=== PATIENT | female | born 1930 | race Caucasian/White ===

== ENCOUNTER 2017-10-01 19:14 | Inpatient (IN) | payer OTHER ==
--- NOTE | 2017-10-01 19:25 | PDOC ---
History of Present Illness <TyIndiana Sabrina - Last Filed: 10/01/17 22:55> - General History Source: EMS, Family Exam Limitations: Clinical Condition - History of Present Illness Initial Comments: 10/01/17 22:31 The patient is a 86 year old female brought in via EMS from [facility] and presenting with her son, with a significant past medical history of Dementia, Debucitis ulcer, pneumonia and must eat pureed foods, who presents to the emergency department with respiratory distress onset today. Before arrival to the ED the patient was given two doses of Nitro by EMS for treatment of presumed CHF. Upon presentation the patient is frail appearing and is neurological nonverbal (unknown baseline). Allergies: None reported Past surgical history: None reported Social history: No alcohol, tobacco or drug use reported <Shiraz Herr - Last Filed: 10/01/17 23:53> - General Chief Complaint: Respiratory Distress Stated Complaint: RESPIRATORY DISTRESS Time Seen by Provider: 10/01/17 19:25 Past History <Indiana Crawford - Last Filed: 10/01/17 22:55> <Shiraz Herr - Last Filed: 10/01/17 23:53> - Past Medical History Allergies/Adverse Reactions: Allergies Allergy/AdvReac Type Severity Reaction Status Date / Time No Known Allergies Allergy Verified 10/01/17 20:02 Home Medications: Ambulatory Orders Acetaminophen 325 mg PO DAILY 10/01/17 Aspirin [ASA -] 81 mg PO DAILY 10/01/17 Vitamin B Comp W-C [Nephro-Milly -] 1 tablet PO DAILY 10/01/17 Vitamin B Comp W-C [Nephro-Milly -] 1 tablet PO DAILY 10/01/17 Review of Systems - Review of Systems Able to Perform ROS?: No Comments:: 10/01/17 22:31 Unable to obtain ROS due to patient clinical condition. <Shiraz Herr - Last Filed: 10/01/17 23:53> *Physical Exam - Vital Signs Last Vital Signs Temp Pulse Resp BP Pulse Ox 100.7 F H 125 H 26 H 76/56 100 10/01/17 19:51 10/01/17 19:27 10/01/17 19:27 10/01/17 19:27 10/01/17 19:51 - Physical Exam Comments: 10/01/17 22:31 GENERAL: Awake but altered HEAD: No signs of trauma, normocephalic, atraumatic EYES: PERRLA, EOMI, sclera anicteric, conjunctiva clear ENT: Auricles normal inspection, hearing grossly normal, nares patent, oropharynx clear without exudates. Moist mucosa NECK: Normal ROM, supple, no lymphadenopathy, JVD, or masses LUNGS: (+) tachypneic, Diffused ronchi HEART: (+) Tachycardic and hypotensive. ABDOMEN: Soft, nontender, normoactive bowel sounds. No guarding, no rebound. No masses EXTREMITIES : Normal inspection, No edema. No clubbing or cyanosis. NEUROLOGICAL: Deferred due to patient mental status. Neurological nonverbal ( unknown baseline) SKIN: Warm, Dry, normal turgor, no rashes or lesions noted. <Shiraz Herr - Last Filed: 10/01/17 23:53> ED Treatment Course - LABORATORY CBC & Chemistry Diagram: 10/01/17 19:30 10/01/17 21:20 <Indiana Crawford - Last Filed: 10/01/17 22:55> - LABORATORY CBC & Chemistry Diagram: 10/01/17 19:30 10/01/17 21:20 - ADDITIONAL ORDERS Additional order review: Laboratory Results 10/01/17 10/01/17 10/01/17 21:20 21:20 20:20 PT with INR INR PTT (Actin FS) Puncture Site Left radial ABG pH 7.25 L ABG pCO2 at Pt Temp 54.0 H ABG pO2 at Pt Temp 257.0 H* ABG HCO3 22.9 ABG O2 Sat (Measured) 99.1 H ABG O2 Content 19.0 ABG Base Excess -4.5 L Jhon Test Positive O2 Delivery Device Bipap Oxygen Flow Rate 100% Vent Mode S/t Vent Rate 14 Pressure Support Vent 12/6 Sodium 145 Potassium 3.8 Chloride 109 H Carbon Dioxide 23 Anion Gap 13 BUN 34 H Creatinine 1.5 H Creat Clearance w eGFR 32.85 Random Glucose 209 H Lactic Acid Calcium 8.3 L Total Bilirubin 0.5 AST 19 ALT 26 Alkaline Phosphatase 70 Creatine Kinase 140 Troponin I 0.09 H B-Natriuretic Peptide Total Protein 6.7 Albumin 2.7 L Blood Type Antibody Screen 10/01/17 10/01/17 10/01/17 19:30 19:30 19:30 PT with INR INR PTT (Actin FS) Puncture Site ABG pH ABG pCO2 at Pt Temp ABG pO2 at Pt Temp ABG HCO3 ABG O2 Sat (Measured) ABG O2 Content ABG Base Excess Jhon Test O2 Delivery Device Oxygen Flow Rate Vent Mode Vent Rate Pressure Support Vent Sodium Potassium Chloride Carbon Dioxide Anion Gap BUN Creatinine Creat Clearance w eGFR Random Glucose Lactic Acid 7.9 H* Calcium Total Bilirubin AST ALT Alkaline Phosphatase Creatine Kinase Troponin I B-Natriuretic Peptide Cancelled Total Protein Albumin Blood Type O POSITIVE Antibody Screen Negative 10/01/17 10/01/17 10/01/17 19:30 19:30 19:30 PT with INR 11.90 H INR 1.05 PTT (Actin FS) 28.6 Puncture Site ABG pH ABG pCO2 at Pt Temp ABG pO2 at Pt Temp ABG HCO3 ABG O2 Sat (Measured) ABG O2 Content ABG Base Excess Jhon Test O2 Delivery Device Oxygen Flow Rate Vent Mode Vent Rate Pressure Support Vent Sodium Cancelled Potassium Cancelled Chloride Cancelled Carbon Dioxide Cancelled Anion Gap Cancelled BUN Cancelled Creatinine Cancelled Creat Clearance w eGFR Cancelled Random Glucose Cancelled Lactic Acid Calcium Cancelled Total Bilirubin Cancelled AST Cancelled ALT Cancelled Alkaline Phosphatase Cancelled Creatine Kinase Cancelled Troponin I Cancelled B-Natriuretic Peptide Total Protein Cancelled Albumin Cancelled Blood Type Antibody Screen 10/01/17 19:30 RBC 4.98 MCV 85.1 MCHC 31.0 L RDW 15.9 H MPV 10.7 Neutrophils % No Result Required. Lymphocytes % No Result Required. - Medications Given in the ED: ED Medications Discontinued Medications Generic Name Dose Route Start Last Admin Trade Name Freq PRN Reason Stop Dose Admin Acetaminophen 650 mg 10/01/17 19:47 10/01/17 20:38 Tylenol Suppository - TX 10/01/17 19:48 650 mg ONCE ONE Administration Piperacillin/Tazobactam/Dextrose 50 mls @ 100 mls/hr 10/01/17 20:06 10/01/17 20:38 Zosyn 3.375gm Ivpb (Premix) IVPB 10/01/17 20:35 100 mls/hr ONCE ONE Administration Protocol Vancomycin HCl 1,000 mg/ 250 mls @ 250 mls/hr 10/01/17 20:07 10/01/17 20:38 Dextrose IVPB 10/01/17 21:06 250 mls/hr ONCE STA Administration Protocol <Shiraz Herr - Last Filed: 10/01/17 23:53> Medical Decision Making - Medical Decision Making 10/01/17 22:56 Patient found to have urosepsis, probable Lower lobe infiltrate who presented tachycardic,hypoxic and hypotensive. (This picture may be due to the 2 doses of nitroglycerin she received en route by paramedics-they felt she was in chf -pt has 34,000 .sl elevated bun/cr antibiotics started, patient admitted to ICU -first trop was 0.09 and will need to be trended PMH dementia, swallowing difficulties,requires pureed foods, pneumonia,sacral decub <Indiana Crawford - Last Filed: 10/01/17 22:55> - Critical Care Time Total Critical Care Time (minutes): 120 Critical Care Statement: The care of this patient involved high complexity decision making to prevent further life threatening deterioration of the patient 's condition and/or to evaluate & treat vital organ system(s) failure or risk of failure. <Shiraz Herr - Last Filed: 10/01/17 23:53> *DC/Admit/Observation/Transfer - Discharge Dispostion Admit: Yes <Indiana Crawford - Last Filed: 10/01/17 22:55> - Attestations Scribe Attestion: 10/01/17 22:33 Documentation prepared by Shiraz Herr, acting as medical front desk coordinator for Indiana Crawford MD <Shiraz Herr - Last Filed: 10/01/17 23:53> Diagnosis at time of Disposition: Pneumonia Qualifiers: Pneumonia type: due to unspecified organism Laterality: left Lung location: lower lobe of lung Qualified Code(s): J18.1 - Lobar pneumonia, unspecified organism Sepsis Qualifiers: Sepsis type: sepsis due to unspecified organism Qualified Code(s): A41.9 - Sepsis, unspecified organism Dementia Qualifiers: Dementia type: Alzheimer's disease Alzheimer's disease onset: unspecified onset Dementia behavioral disturbance: without behavioral disturbance Qualified Code(s): G30.9 - Alzheimer's disease, unspecified UTI (urinary tract infection) Qualifiers: Urinary tract infection type: acute cystitis Hematuria presence: without hematuria Qualified Code(s): N30.00 - Acute cystitis without hematuria - Discharge Dispostion Condition at time of disposition: Critical
[2017-10-01] MEDS ORDERED: ACETAMINOPHEN 650 MG SUPP.RECT PR ONE (19:47)
[2017-10-01] MEDS ORDERED: PIPERACILLIN/TAZOB 3.375 GM 50 ML IVPB ONE (20:06)
[2017-10-01] MEDS ORDERED: VANCOMYCIN 1,000 MG in DEXTROSE 5%-WATER - 250 ML IVPB STA (20:07)
[2017-10-01 20:26] LABS: ARTERIAL BLD GAS O2 SATURATION 99.1 % (90-98.9); ARTERIAL BLOOD GAS BASE EXCESS -4.5 meq/l (-2-2); ARTERIAL BLOOD GAS HCO3 22.9 meq/L (22-26); ARTERIAL BLOOD GAS pH 7.25 (7.35-7.45)
[2017-10-01 20:27] LABS: ALLENS TEST POSITIVE; ART PUNCT SITE LEFT RADIAL; LPM/O2% 100%; PT. ON O2? YES; TYPE OF O2 BIPAP; VENT RATE 14
[2017-10-01] MEDS ORDERED: PIPERACILLIN/TAZOB 3.375 GM 3.375 GM/50 ML BAG IVPB ONE (20:28)
[2017-10-01] MEDS ORDERED: VANCOMYCIN 1 GRAM (PRE-DOCKED) 1,000 MG/250 ML BAG IVPB ONE (20:28)
[2017-10-01] MEDS ORDERED: ACETAMINOPHEN 650 MG SUPP.RECT ONE (20:29)
[2017-10-01 20:36] LABS: MCH 26.4 pg (25.7-33.7); MEAN CELL VOLUME 85.1 fl (80-96); MEAN PLT VOLUME 10.7 fl (7.5-11.1); PLATELET COUNT 519 K/MM3 (134-434); RDW 15.9 % (11.6-15.6)
[2017-10-01 20:40] LABS: WHITE BLOOD COUNT 34.4 K/mm3 (4.0-10.0)
[2017-10-01 20:44] LABS: INR 1.05 (0.82-1.09); PROTHROMBIN TIME (PATIENT) 11.9 SEC (9.98-11.88)
[2017-10-01 20:46] LABS: ACTIVATED PTT 28.6 SECONDS (26.9-34.4)
[2017-10-01 21:03] LABS: PLATELET COMMENTS NO CLUMPING NOTED; PLATELET ESTIMATE INCREASED; REACTIVE LYMPHOCYTES 2 % (0-80); TOTAL CELLS COUNTED 100
[2017-10-01 22:07] LABS: TROPONIN I 0.09 ng/ml (0.00-0.05)
[2017-10-01 22:11] LABS: ALBUMIN 2.7 g/dl (3.4-5.0); ALK PHOS 70 U/L (45-117); ANION GAP 13 (8-16); BILIRUBIN,TOTAL 0.5 mg/dL (0.2-1.0); CALCIUM 8.3 mg/dL (8.5-10.1); CO2 23 mmol/L (21-32); CREATININE 1.5 mg/dL (0.55-1.02); GLUCOSE,RANDOM 209 mg/dL (74-106); SGOT/AST 19 U/L (15-37); SGPT/ALT 26 U/L (12-78); TOT PROT 6.7 g/dl (6.4-8.2)
[2017-10-01 22:34] LABS: URINE APPEARANCE TURBID; URINE BILIRUBIN NEGATIVE (NEGATIVE); URINE BLOOD NEGATIVE (NEGATIVE); URINE COLOR AMBER; URINE GLUCOSE (UA) NEGATIVE (NEGATIVE); URINE KETONE NEGATIVE (NEGATIVE); URINE NITRITE POSITIVE (NEGATIVE); URINE UROBILINOGEN NEGATIVE mg/dL (0.2-1.0)
[2017-10-01 22:41] LABS: URINE PROTEIN 3+ (NEGATIVE)
[2017-10-01 22:42] LABS: URINE BACTERIA MANY /hpf (NONE SEEN); URINE MUCUS MANY; URINE RBC 61; URINE WBC 673; YEAST MANY
[2017-10-01] MEDS ORDERED: LEVOFLOXACIN 500 MG IVPB 500 MG/100 ML BAG IVPB ONE ×2 (22:53→22:58)
--- NOTE | 2017-10-01 22:58 | CONSULT ---
Consult - text type - Consultation Consultation Note: PULM/CCM Pt seen and examined in the ICU CC: dyspnea HPI: Briefly Ms Cardoza is an 86 year old woman with pmhx of dementia, aspiration pna, decubitus ulcer who presented to ED today via EMS for < 24Hr hrs of shortness of breath. She is a resident of [facility] and came in with her son. She in unable to provide hx. She is frail appearing and apparently has been in declining health. EMS felt she was in heart failure and she received 2 SL nitro prior to arrival in ED. In ED pt was febrile to 100, tachy w/HR 125, dyspneic with RR in high 20s, BP 76/56. She had significant wob and acute hypercapneic resp failure (7.25/54), started on Bilevel NIV. Labs otherwise notable for wbc 30K 10% bandemia, lactate 8, Cr 1.4 unk baseline. UA w / pyuria WBC 600+, +LE/N. CXR revealed perihilar congestion and possible RLL infiltrate vs atelectesis. EKG with some lateral ST changes, trop was 0.09, BNP 1200. She was started on Vancomycin, LVQ and Pip/Geovany for UTI and HAP, was given some gentle fluid resuscitation. Repeat abg pending. Pmhx/Surg: -only as described above Social Hx: [facility] resident, awaiting hx from son (not currently with pt) unk tob/etoh/illicts Family hx: non-contrib Vital Signs Temp 100.7 F H 10/01/17 19:51 Pulse 125 H 10/01/17 19:27 Resp 26 H 10/01/17 19:27 BP 76/56 10/01/17 19:27 Pulse Ox 100 10/01/17 19:51 Intake & Output 09/30/17 10/01/17 10/01/17 23:59 11:59 23:59 Weight 63.503 kg Other: Height 5 ft Body Mass Index (BMI) 27.3 Weight Measurement Method Est/Stated by Patient ABG Results ABG pH 7.25 (7.35-7.45) L 10/01/17 20:20 ABG pCO2 at Pt Temp 54.0 mmHg (35-45) H 10/01/17 20:20 ABG pO2 at Pt Temp 257.0 mmHg (68-100) H* 10/01/17 20:20 ABG HCO3 22.9 meq/L (22-26) 10/01/17 20:20 ABG O2 Sat (Measured) 99.1 % (90-98.9) H 10/01/17 20:20 ABG O2 Content 19.0 % vol (15-22) 10/01/17 20:20 ABG Base Excess -4.5 meq/l (-2-2) L 10/01/17 20:20 Troponin, BNP 10/01/17 10/01/17 10/01/17 19:30 19:30 21:20 Troponin I Cancelled 0.09 H B-Natriuretic Peptide Cancelled 10/01/17 21:20 Troponin I B-Natriuretic Peptide 1255.62 H CBCD WBC 34.4 K/mm3 (4.0-10.0) H* 10/01/17 19:30 RBC 4.98 M/mm3 (3.60-5.2) 10/01/17 19:30 Hgb 13.2 GM/dL (10.7-15.3) 10/01/17 19:30 Hct 42.4 % (32.4-45.2) 10/01/17 19:30 MCV 85.1 fl (80-96) 10/01/17 19:30 MCHC 31.0 g/dl (32.0-36.0) L 10/01/17 19:30 RDW 15.9 % (11.6-15.6) H 10/01/17 19:30 Plt Count 519 K/MM3 (134-434) H 10/01/17 19:30 MPV 10.7 fl (7.5-11.1) 10/01/17 19:30 CMP Sodium 145 mmol/L (136-145) 10/01/17 21:20 Potassium 3.8 mmol/L (3.5-5.1) 10/01/17 21:20 Chloride 109 mmol/L (98-107) H 10/01/17 21:20 Carbon Dioxide 23 mmol/L (21-32) 10/01/17 21:20 Anion Gap 13 (8-16) 10/01/17 21:20 BUN 34 mg/dL (7-18) H 10/01/17 21:20 Creatinine 1.5 mg/dL (0.55-1.02) H 10/01/17 21:20 Creat Clearance w eGFR 32.85 (>60) 10/01/17 21:20 Calcium 8.3 mg/dL (8.5-10.1) L 10/01/17 21:20 Total Bilirubin 0.5 mg/dL (0.2-1.0) 10/01/17 21:20 AST 19 U/L (15-37) 10/01/17 21:20 ALT 26 U/L (12-78) 10/01/17 21:20 Alkaline Phosphatase 70 U/L (45-117) 10/01/17 21:20 Total Protein 6.7 g/dl (6.4-8.2) 10/01/17 21:20 Albumin 2.7 g/dl (3.4-5.0) L 10/01/17 21:20 Urine Test Results Urine Color Angie 10/01/17 22:00 Urine Appearance Turbid 10/01/17 22:00 Urine pH 7.0 (5.0-8.0) 10/01/17 22:00 Ur Specific [place] 1.025 (1.001-1.035) 10/01/17 22:00 Urine Protein 3+ (NEGATIVE) H 10/01/17 22:00 Urine Glucose (UA) Negative (NEGATIVE) 10/01/17 22:00 Urine Ketones Negative (NEGATIVE) 10/01/17 22:00 Urine Blood Negative (NEGATIVE) 10/01/17 22:00 Urine Nitrite Positive (NEGATIVE) 10/01/17 22:00 Urine Bilirubin Negative (NEGATIVE) 10/01/17 22:00 Ur Epithelial Cells Few /hpf (FEW) 10/01/17 22:00 Urine Bacteria Many /hpf (NONE SEEN) 10/01/17 22:00 Urine Mucus Many 10/01/17 22:00 Ambulatory Orders Acetaminophen 325 mg PO DAILY 10/01/17 Aspirin [ASA -] 81 mg PO DAILY 10/01/17 Vitamin B Comp W-C [Nephro-Milly -] 1 tablet PO DAILY 10/01/17 Vitamin B Comp W-C [Nephro-Milly -] 1 tablet PO DAILY 10/01/17 Active Medications Chlorhexidine Gluconate (Hibiclens For Decolonization -) 1 applic TP HS KEVIN Heparin Sodium (Porcine) (Heparin -) 5,000 unit SQ TID [facility] Sodium Chloride (Normal Saline -) 1,000 mls @ 60 mls/hr IV ASDIR KEVIN Mupirocin (Bactroban Ointment (For Decolonization) -) 1 applic NS BID KEVIN Stop: 10/07/17 09:59 ROS: unable due to dementia PE: Frail eld woman, on NIV, tachypneic but not in distress HEENT: PERRL, no jvp PULM: clear anterior, no wheezes ABD: soft, NT, + BS EXT: no edema Back: R Scapula pressure ulcer stage IV, 4 x 4.5, some tunneling dressed CXR: reviewed. No large infiltrate EKG: SR, no significant ST changes (poor tracing, to be repeated) A/ 86 y/o woman with advanced dementia and declining health p/w UTI, possible aspiration pna and hypercapneic resp failure requiring NIVPPV P/ -broad spectrum abx: P/T and Vanco to cover HAP/UTI -cont NIV, high threshold to intubate if in line with GOC given tendency to aspirate (NIV/MV not ideal) -f/u repeat abg and lactate pending -gentle volume resuscitation (elevated BNP could be falsely high in setting of LEA) -serial trop and trend Cr -speech and swallow eval once improved mental and clinical status---need to discuss value and questionable utility of feeding tube with family -SQH, no indication for GI prophy -WOC consult (has been following at [place]) -per report family wishes for "everything to be done", cont GOC discussions given advanced dementia aggressive measures ideally only on a limited trial basis. Demario Buck [facility] [id number] Critical Care Total Critical Care Time (in minutes): 35 Critical Care Statement: The care of this patient involved high complexity decision making to prevent further life threatening deterioration of the patient 's condition and/or to evaluate & treat vital organ system(s) failure or risk of failure.
--- NOTE | 2017-10-01 23:09 | HP ---
CHIEF COMPLAINT: SOB PCP: Dr. Stone HISTORY OF PRESENT ILLNESS: This is a 86 y/o woman with a past medical history of Dementia, Aspirated Pneumonia, Decubitus Ulcer. Who presents to the ED from the [facility] with SOB. Patient was found to be in respiratory distress by EMS and was given Nitro x2 for presumed CHF. Patient arrived to the ED with vitals T - 100.7 (Rectal), P 125, R 26, BP 76/56, Spo2 92~88%. Patient was placed on BIPAP. Patient's lab values showed a WBC 33.4 with Bandemia, LA 7.9. In the ED , patient was given broad spectrum antibiotics, with blood cultures pending, fluid bolus, Tylenol. The chest xray image ?RLL infiltrate. Admit to ICU for Severe Sepsis secondary to UTI, Pneumonia ER course was notable for: (1) Severe Sepsis- T- 100.7 (Rectal), P 125, R 26, BP 76/56, Spo2 92~88%. WBC 34.4, LA 7.9 (2) Chest Xray- possible RLL infiltrate (3) UA- +Nitrates, WBC 600+ (4) Trop I- 0.09 Recent Travel: None PAST MEDICAL HISTORY: Dementia Aspirated Pneumonia Decubitus Ulcer PAST SURGICAL HISTORY: Unknown Social History: Smoking: Unknown Alcohol: None Drugs: None Resides in a SNF Family History: Non-contributory Allergies No Known Allergies Allergy (Verified 10/01/17 20:02) HOME MEDICATIONS: Home Medications Medication Instructions Recorded Acetaminophen 325 mg PO DAILY 10/01/17 Aspirin [ASA -] 81 mg PO DAILY 10/01/17 Vitamin B Comp W-C [Nephro-Milly -] 1 tablet PO DAILY 10/01/17 Vitamin B Comp W-C [Nephro-Milly -] 1 tablet PO DAILY 10/01/17 REVIEW OF SYSTEMS Unable to obtain- Dementia hx CONSTITUTIONAL: Absent: fever, chills, diaphoresis, generalized weakness, malaise, loss of appetite, weight change HEENT: Absent: rhinorrhea, nasal congestion, throat pain, throat swelling, difficulty swallowing, mouth swelling, ear pain, eye pain, visual changes CARDIOVASCULAR: Absent: chest pain, syncope, palpitations, irregular heart rate, lightheadedness , peripheral edema RESPIRATORY: Absent: cough, shortness of breath, dyspnea with exertion, orthopnea, wheezing, stridor, hemoptysis GASTROINTESTINAL: Absent: abdominal pain, abdominal distension, nausea, vomiting, diarrhea, constipation, melena, hematochezia GENITOURINARY: Absent: dysuria, frequency, urgency, hesitancy, hematuria, flank pain, genital pain MUSCULOSKELETAL: Absent: myalgia, arthralgia, joint swelling, back pain, neck pain SKIN: Absent: rash, itching, pallor HEMATOLOGIC/IMMUNOLOGIC: Absent: easy bleeding, easy bruising, lymphadenopathy, frequent infections ENDOCRINE: Absent: unexplained weight gain, unexplained weight loss, heat intolerance, cold intolerance NEUROLOGIC: Absent: headache, focal weakness or paresthesias, dizziness, unsteady gait, seizure, mental status changes, bladder or bowel incontinence PSYCHIATRIC: Absent: anxiety, depression, suicidal or homicidal ideation, hallucinations. PHYSICAL EXAMINATION Vital Signs - 24 hr 10/01/17 10/01/17 10/01/17 19:25 19:27 19:36 Temperature 100.7 F H Pulse Rate 125 H Respiratory 26 H Rate Blood Pressure 76/56 O2 Sat by Pulse 94 L 88 L Oximetry (%) 10/01/17 10/01/17 19:51 22:45 Temperature 100.7 F H Pulse Rate Respiratory Rate Blood Pressure O2 Sat by Pulse 100 96 Oximetry (%) GENERAL: Awake, alert to baseline, in no acute distress. HEAD: Normal with no signs of trauma. EYES: Pupils equal, round and reactive to light, sclera anicteric, conjunctiva clear. No lid lag. EARS, NOSE, THROAT: Ears normal, nares patent, oropharynx clear without exudates. Dry mucous membranes. NECK: Normal range of motion, supple without lymphadenopathy, JVD, or masses. LUNGS: On Bipap, +coarse crackles scattered diffusely, diminished RLL HEART: Regular rate and rhythm, normal S1 and S2 without murmur, rub or gallop. ABDOMEN: Soft, nontender, not distended, normoactive bowel sounds, no guarding, no rebound, no masses. No hepatomegaly or splenomegaly. MUSCULOSKELETAL: Normal range of motion at all joints. No bony deformities or tenderness. No CVA tenderness. UPPER EXTREMITIES: 2+ pulses, warm, well-perfused. No cyanosis. No clubbing. No peripheral edema. LOWER EXTREMITIES: 2+ pulses, warm, well-perfused. No calf tenderness. No peripheral edema. NEUROLOGICAL: Cranial nerves II-XII intact. Non-verbal. Gait not observed. PSYCHIATRIC: Restless, at baseline SKIN: Warm, dry, normal turgor, no rashes. 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 Laboratory Results - last 24 hr 10/01/17 10/01/17 10/01/17 19:30 19:30 19:30 WBC 34.4 H* RBC 4.98 Hgb 13.2 Hct 42.4 MCV 85.1 MCH 26.4 MCHC 31.0 L RDW 15.9 H Plt Count 519 H MPV 10.7 Total Counted 100 Neutrophils % No Result Required. Neutrophils % (Manual) 75.0 Band Neutrophils % 10.0 Lymphocytes % No Result Required. Lymphocytes % (Manual) 10.0 Monocytes % (Manual) 3 L Platelet Estimate Increased Platelet Comment No clumping noted PT with INR 11.90 H INR 1.05 PTT (Actin FS) 28.6 Puncture Site ABG pH ABG pCO2 at Pt Temp ABG pO2 at Pt Temp ABG HCO3 ABG O2 Sat (Measured) ABG O2 Content ABG Base Excess Jhon Test O2 Delivery Device Oxygen Flow Rate Vent Mode Vent Rate Pressure Support Vent Sodium Cancelled Potassium Cancelled Chloride Cancelled Carbon Dioxide Cancelled Anion Gap Cancelled BUN Cancelled Creatinine Cancelled Creat Clearance w eGFR Cancelled Random Glucose Cancelled Lactic Acid Calcium Cancelled Total Bilirubin Cancelled AST Cancelled ALT Cancelled Alkaline Phosphatase Cancelled Creatine Kinase Troponin I B-Natriuretic Peptide Total Protein Cancelled Albumin Cancelled Urine Color Urine Appearance Urine pH Ur Specific [place] Urine Protein Urine Glucose (UA) Urine Ketones Urine Blood Urine Nitrite Urine Bilirubin Urine Urobilinogen Urine WBC (Auto) Urine RBC (Auto) Ur Epithelial Cells Urine Bacteria Urine Mucus Urine Yeast Blood Type Antibody Screen 10/01/17 10/01/17 10/01/17 19:30 19:30 19:30 WBC RBC Hgb Hct MCV MCH MCHC RDW Plt Count MPV Total Counted Neutrophils % Neutrophils % (Manual) Band Neutrophils % Lymphocytes % Lymphocytes % (Manual) Monocytes % (Manual) Platelet Estimate Platelet Comment PT with INR INR PTT (Actin FS) Puncture Site ABG pH ABG pCO2 at Pt Temp ABG pO2 at Pt Temp ABG HCO3 ABG O2 Sat (Measured) ABG O2 Content ABG Base Excess Jhon Test O2 Delivery Device Oxygen Flow Rate Vent Mode Vent Rate Pressure Support Vent Sodium Potassium Chloride Carbon Dioxide Anion Gap BUN Creatinine Creat Clearance w eGFR Random Glucose Lactic Acid 7.9 H* Calcium Total Bilirubin AST ALT Alkaline Phosphatase Creatine Kinase Cancelled Troponin I Cancelled B-Natriuretic Peptide Total Protein Albumin Urine Color Urine Appearance Urine pH Ur Specific [place] Urine Protein Urine Glucose (UA) Urine Ketones Urine Blood Urine Nitrite Urine Bilirubin Urine Urobilinogen Urine WBC (Auto) Urine RBC (Auto) Ur Epithelial Cells Urine Bacteria Urine Mucus Urine Yeast Blood Type O POSITIVE Antibody Screen Negative 10/01/17 10/01/17 10/01/17 19:30 20:20 21:20 WBC RBC Hgb Hct MCV MCH MCHC RDW Plt Count MPV Total Counted Neutrophils % Neutrophils % (Manual) Band Neutrophils % Lymphocytes % Lymphocytes % (Manual) Monocytes % (Manual) Platelet Estimate Platelet Comment PT with INR INR PTT (Actin FS) Puncture Site Left radial ABG pH 7.25 L ABG pCO2 at Pt Temp 54.0 H ABG pO2 at Pt Temp 257.0 H* ABG HCO3 22.9 ABG O2 Sat (Measured) 99.1 H ABG O2 Content 19.0 ABG Base Excess -4.5 L Jhon Test Positive O2 Delivery Device Bipap Oxygen Flow Rate 100% Vent Mode S/t Vent Rate 14 Pressure Support Vent 12/6 Sodium 145 Potassium 3.8 Chloride 109 H Carbon Dioxide 23 Anion Gap 13 BUN 34 H Creatinine 1.5 H Creat Clearance w eGFR 32.85 Random Glucose 209 H Lactic Acid Calcium 8.3 L Total Bilirubin 0.5 AST 19 ALT 26 Alkaline Phosphatase 70 Creatine Kinase Troponin I B-Natriuretic Peptide Cancelled Total Protein 6.7 Albumin 2.7 L Urine Color Urine Appearance Urine pH Ur Specific [place] Urine Protein Urine Glucose (UA) Urine Ketones Urine Blood Urine Nitrite Urine Bilirubin Urine Urobilinogen Urine WBC (Auto) Urine RBC (Auto) Ur Epithelial Cells Urine Bacteria Urine Mucus Urine Yeast Blood Type Antibody Screen 10/01/17 10/01/17 10/01/17 21:20 21:20 22:00 WBC RBC Hgb Hct MCV MCH MCHC RDW Plt Count MPV Total Counted Neutrophils % Neutrophils % (Manual) Band Neutrophils % Lymphocytes % Lymphocytes % (Manual) Monocytes % (Manual) Platelet Estimate Platelet Comment PT with INR INR PTT (Actin FS) Puncture Site ABG pH ABG pCO2 at Pt Temp ABG pO2 at Pt Temp ABG HCO3 ABG O2 Sat (Measured) ABG O2 Content ABG Base Excess Jhon Test O2 Delivery Device Oxygen Flow Rate Vent Mode Vent Rate Pressure Support Vent Sodium Potassium Chloride Carbon Dioxide Anion Gap BUN Creatinine Creat Clearance w eGFR Random Glucose Lactic Acid Calcium Total Bilirubin AST ALT Alkaline Phosphatase Creatine Kinase 140 Troponin I 0.09 H B-Natriuretic Peptide 1255.62 H Total Protein Albumin Urine Color Angie Urine Appearance Turbid Urine pH 7.0 Ur Specific [place] 1.025 Urine Protein 3+ H Urine Glucose (UA) Negative Urine Ketones Negative Urine Blood Negative Urine Nitrite Positive Urine Bilirubin Negative Urine Urobilinogen Negative Urine WBC (Auto) 673 Urine RBC (Auto) 61 Ur Epithelial Cells Few Urine Bacteria Many Urine Mucus Many Urine Yeast Many Blood Type Antibody Screen ASSESSMENT/PLAN: This is a 86 y/o woman with a PMHx of Dementia, Aspiration Pneumonia, Decubitus. Admitted for Severe Sepsis secondary to UTI, Pneumonia. FEN - NS@60ml/hr - Replete lytes prn - NPO Code Status: Full Code Dispo: Requires Inpatient Care Problem List - Problem (1) Sepsis Assessment/Plan: - Severe Sepsis likely secondary to UTI vs Right Scapula Ulcer - Admit to ICU - qSofa Score 2 - SIRS Criteria Met IV- T- 100.7, P-125, LA 7.9, WBC-34.4 - UA- +Nitrates, 600+ WBC - Blood Cultures-pending - Urine Culture-pending - Chest Xray- image reviewed ?RLL infiltrate, report- perihilar congestion, possible RLL infiltrate vs atelectasis - Fluid bolus given EMS/ED - Will continue gentle IVF- concern for fluid overload - Will maintain MAP > 65 - Consider pressors to maintain BP - Levaquin, Zosyn, Vancomycin given in ED - Will continue Zosyn and Vancomcyin for broad spectrum coverage- pending BC results - Appreciate ID Consult - Tylenol prn - O2- BIPAP - Initial ABG- Acute Hypercapnia- Resp Failure - Repeat ABG- pending - Low threshold for intubation at this time, but will continue to monitor closely - Continue cardiac monitoring - Repeat CBCD, BMP in am - Trend lactic acid - Monitor urine output Code(s): A41.9 - SEPSIS, UNSPECIFIED ORGANISM Qualifiers: Sepsis type: sepsis due to unspecified organism Qualified Code(s): A41.9 - Sepsis, unspecified organism (2) Pneumonia Assessment/Plan: - [id number] Score- 3 - Chest Xray- image ?RLL - Blood Cultures-pending - Urine Legionella-pending - Levaquin, Vancomycin, Zosyn given in ED - Continue Vancomycin/Zosyn - ID and Pulm consulted - On Bipap for hypercapnia, resp failure - Monitor CBC - Monitor vitals Code(s): J18.9 - PNEUMONIA, UNSPECIFIED ORGANISM Qualifiers: Pneumonia type: due to unspecified organism Laterality: left Lung location: lower lobe of lung Qualified Code(s): J18.1 - Lobar pneumonia, unspecified organism (3) UTI (urinary tract infection) Assessment/Plan: - Urine Cultures-pending - Continue Zosyn - Monitor vitals Code(s): N39.0 - URINARY TRACT INFECTION, SITE NOT SPECIFIED Qualifiers: Urinary tract infection type: acute cystitis Hematuria presence: without hematuria Qualified Code(s): N30.00 - Acute cystitis without hematuria (4) Elevated troponin I level Assessment/Plan: - Likely secondary to Sepsis - Continue cardiac monitoring - Serial Enzymes - EKG- lateral ST changes - Appreciate Cardiology Consult - Asa Code(s): R74.8 - ABNORMAL LEVELS OF OTHER SERUM ENZYMES (5) Dementia Assessment/Plan: - Continue to monitor and treat accordingly - Fall Precautions Code(s): F03.90 - UNSPECIFIED DEMENTIA WITHOUT BEHAVIORAL DISTURBANCE Qualifiers: Dementia type: Alzheimer's disease Alzheimer's disease onset: unspecified onset Dementia behavioral disturbance: without behavioral disturbance Qualified Code(s): G30.9 - Alzheimer's disease, unspecified; F02.80 - Dementia in other diseases classified elsewhere without behavioral disturbance; F02.80 - Dementia in other diseases classified elsewhere without behavioral disturbance; F02.80 - Dementia in other diseases classified elsewhere without behavioral disturbance (6) DVT prophylaxis Assessment/Plan: - SCDs - Heparin SQ Code(s): [id number] - Visit type - Emergency Visit Emergency Visit: Yes ED Registration Date: 10/01/17 Care time: The patient presented to the Emergency Department on the above date and was hospitalized for further evaluation of their emergent condition. - New Patient This patient is new to me today: Yes Date on this admission: 10/01/17 - Critical Care Critical Care patient: Yes Total Critical Care Time (in minutes): 40 Critical Care Statement: The care of this patient involved high complexity decision making to prevent further life threatening deterioration of the patient 's condition and/or to evaluate & treat vital organ system(s) failure or risk of failure.
[2017-10-02] MEDS: SODIUM CHLORIDE 1,000 ML IV SCH ×2 (00:30→16:57)
[2017-10-02 02:53] LABS: TROPONIN I 0.13 ng/ml (0.00-0.05)
[2017-10-02] MEDS: HEPARIN NA (PORCINE) 5,000 UNITS/ML 1ML VIAL SQ SCH ×3 (06:13→22:27)
[2017-10-02 07:00] LABS: ALBUMIN 2.6 g/dl (3.4-5.0); ANION GAP 11 (8-16); CALCIUM 8.1 mg/dL (8.5-10.1); CO2 24 mmol/L (21-32); CREATININE 1.4 mg/dL (0.55-1.02); GLUCOSE,RANDOM 117 mg/dL (74-106); PHOSPHOROUS 5.5 mg/dL (2.5-4.9); SGPT/ALT 27 U/L (12-78); TOT PROT 6.8 g/dl (6.4-8.2)
[2017-10-02 07:01] LABS: ALK PHOS 71 U/L (45-117)
[2017-10-02 07:02] LABS: MAGNESIUM 2.2 mg/dL (1.8-2.4); SGOT/AST 39 U/L (15-37)
[2017-10-02] MEDS ORDERED: PIPERACILLIN/TAZOB 3.375 GM 3.375 GM in DEXTROSE 5%-WATER - 50 ML IVPB ONE (07:45)
--- NOTE | 2017-10-02 08:53 | PN ---
Progress Note (short form) - Note Progress Note: ID consult dictated imp/reccd sepsis uti infected necrotic foulsmelling ulcer on upper back doubt pneumonia dementia- she appears alert positive troponins vanco/zosyn f/u cultures legionella urinary antigen repeat labs pending trend lactic acid repeat cxray surgery should see her to debride the ulcer over 35 minutes spend in the care of this critically ill ICU patient will follow with you Problem List - Problems (1) Sepsis Code(s): A41.9 - SEPSIS, UNSPECIFIED ORGANISM Qualifiers: Sepsis type: sepsis due to unspecified organism Qualified Code(s): A41.9 - Sepsis, unspecified organism (2) UTI (urinary tract infection) Code(s): N39.0 - URINARY TRACT INFECTION, SITE NOT SPECIFIED Qualifiers: Urinary tract infection type: acute cystitis Hematuria presence: without hematuria Qualified Code(s): N30.00 - Acute cystitis without hematuria (3) Infected pressure ulcer Code(s): L89.90 - PRESSURE ULCER OF UNSPECIFIED SITE, UNSPECIFIED STAGE; L08.9 - LOCAL INFECTION OF THE SKIN AND SUBCUTANEOUS TISSUE, UNSP (4) Elevated troponin I level Code(s): R74.8 - ABNORMAL LEVELS OF OTHER SERUM ENZYMES (5) Dementia Code(s): F03.90 - UNSPECIFIED DEMENTIA WITHOUT BEHAVIORAL DISTURBANCE Qualifiers: Dementia type: Alzheimer's disease Alzheimer's disease onset: unspecified onset Dementia behavioral disturbance: without behavioral disturbance Qualified Code(s): G30.9 - Alzheimer's disease, unspecified; F02.80 - Dementia in other diseases classified elsewhere without behavioral disturbance; F02.80 - Dementia in other diseases classified elsewhere without behavioral disturbance; F02.80 - Dementia in other diseases classified elsewhere without behavioral disturbance
[2017-10-02] MEDS ORDERED: PNEUMOC 13-VAL CONJ-DIP CRM/PF 0.5 ML DISP.SYRIN IM ONE (09:00)
--- NOTE | 2017-10-02 09:12 | PN ---
Progress Note (short form) - Note Progress Note: Patient seen and examined in MICU. Events since admission noted. Low grade fever Tachypneic. On BiPaP. Discussed with son Junito Cardoza over the phone about her condition. ER course was notable for: (1) Severe Sepsis- T- 100.7 (Rectal), P 125, R 26, BP 76/56, Spo2 92~88%. WBC 34.4, LA 7.9 (2) Chest Xray- possible RLL infiltrate (3) UA- +Nitrates, WBC 600+ (4) Trop I- 0.09 Recent Travel: None PAST MEDICAL HISTORY: Dementia Aspirated Pneumonia Decubitus Ulcer PAST SURGICAL HISTORY: Unknown Social History: Smoking: Unknown Alcohol: None Drugs: None Resides in a SNF Family History: Non-contributory Allergies No Known Allergies Allergy (Verified 10/01/17 20:02) HOME MEDICATIONS: Home Medications Medication Instructions Recorded Acetaminophen 325 mg PO DAILY 10/01/17 Aspirin [ASA -] 81 mg PO DAILY 10/01/17 Vitamin B Comp W-C [Nephro-Milly -] 1 tablet PO DAILY 10/01/17 Vitamin B Comp W-C [Nephro-Milly -] 1 tablet PO DAILY 10/01/17 REVIEW OF SYSTEMS Unable to obtain- Dementia hx CONSTITUTIONAL: Absent: fever, chills, diaphoresis, generalized weakness, malaise, loss of appetite, weight change HEENT: Absent: rhinorrhea, nasal congestion, throat pain, throat swelling, difficulty swallowing, mouth swelling, ear pain, eye pain, visual changes CARDIOVASCULAR: Absent: chest pain, syncope, palpitations, irregular heart rate, lightheadedness , peripheral edema RESPIRATORY: Absent: cough, shortness of breath, dyspnea with exertion, orthopnea, wheezing, stridor, hemoptysis GASTROINTESTINAL: Absent: abdominal pain, abdominal distension, nausea, vomiting, diarrhea, constipation, melena, hematochezia GENITOURINARY: Absent: dysuria, frequency, urgency, hesitancy, hematuria, flank pain, genital pain MUSCULOSKELETAL: Absent: myalgia, arthralgia, joint swelling, back pain, neck pain SKIN: Absent: rash, itching, pallor HEMATOLOGIC/IMMUNOLOGIC: Absent: easy bleeding, easy bruising, lymphadenopathy, frequent infections ENDOCRINE: Absent: unexplained weight gain, unexplained weight loss, heat intolerance, cold intolerance NEUROLOGIC: Absent: headache, focal weakness or paresthesias, dizziness, unsteady gait, seizure, mental status changes, bladder or bowel incontinence PSYCHIATRIC: Absent: anxiety, depression, suicidal or homicidal ideation, hallucinations. PHYSICAL EXAMINATION Vital Signs Period Temp Pulse Resp BP Sys/Vega Pulse Ox Last 24 Hr 98.2 F-99.1 F 85-102 22-41 74-118/29-71 93-99 GENERAL: Awake, alert to baseline, in no acute distress. HEAD: Normal with no signs of trauma. EYES: Pupils equal, round and reactive to light, sclera anicteric, conjunctiva clear. No lid lag. EARS, NOSE, THROAT: Ears normal, nares patent, oropharynx clear without exudates. Dry mucous membranes. NECK: Normal range of motion, supple without lymphadenopathy, JVD, or masses. LUNGS: On Bipap, +coarse crackles scattered diffusely, diminished RLL HEART: Regular rate and rhythm, normal S1 and S2 without murmur, rub or gallop. ABDOMEN: Soft, nontender, not distended, normoactive bowel sounds, no guarding, no rebound, no masses. No hepatomegaly or splenomegaly. MUSCULOSKELETAL: Normal range of motion at all joints. No bony deformities or tenderness. No CVA tenderness. UPPER EXTREMITIES: 2+ pulses, warm, well-perfused. No cyanosis. No clubbing. No peripheral edema. LOWER EXTREMITIES: 2+ pulses, warm, well-perfused. No calf tenderness. No peripheral edema. NEUROLOGICAL: Cranial nerves II-XII intact. Non-verbal. Gait not observed. PSYCHIATRIC: Restless, at baseline SKIN: Warm, dry, normal turgor, no rashes. Stage 4 pressure ulcer 4cm to R- scapula with eschar, serous sanguineous drainage lesions noted, normal capillary refill. CBC, BMP 10/02/17 10:00 10/02/17 06:00 Microbiology 10/01/17 19:50 Blood Culture - Preliminary Blood - Peripheral Venous NO GROWTH OBTAINED AFTER 24 HOURS, INCUBATION TO CONTINUE FOR 4 DAYS. 10/01/17 19:50 Blood Culture - Preliminary Blood - Peripheral Venous NO GROWTH OBTAINED AFTER 24 HOURS, INCUBATION TO CONTINUE FOR 4 DAYS. 10/02/17 00:15 Respiratory Virus (PCR) - Preliminary Nasopharyngeal Swab 10/02/17 08:40 Legionella Antigen - Final Urine For Antigen Detection Streptococcus pneumoniae Antigen (M - Final 10/02/17 00:15 Influenza Types A,B Antigen ([facility]) - Final Nasopharyngeal Swab - Final ASSESSMENT/PLAN: This is a 86 y/o woman with a PMHx of Dementia, Aspiration Pneumonia, Decubitus. Admitted for Severe Sepsis secondary to UTI, Pneumonia. Problem List - Problem (1) Sepsis Assessment/Plan: - Severe Sepsis likely secondary to UTI - UA- +Nitrates, 600+ WBC - Blood Cultures-pending - Urine Culture-pending - Chest Xray- image reviewed ?RLL infiltrate, report- perihilar congestion, possible RLL infiltrate vs atelectasis - ID Consult appreciated. - Continue Zosyn and Vancomcyin for broad spectrum coverage- pending BC results - Tylenol prn - O2- BIPAP - Initial ABG- Acute Hypercapnia- Resp Failure - Continue cardiac monitoring - Repeat CBCD, BMP in am - Trend lactic acid - Monitor urine output Code(s): A41.9 - SEPSIS, UNSPECIFIED ORGANISM Qualifiers: Sepsis type: sepsis due to unspecified organism Qualified Code(s): A41.9 - Sepsis, unspecified organism (2) Pneumonia Assessment/Plan: - Chest Xray- image ?RLL - Blood Cultures-pending - Urine Legionella-pending - Continue Vancomycin/Zosyn - ID and Pulm consulted - On Bipap for hypercapnia, resp failure - Monitor CBC - Monitor vitals Code(s): J18.9 - PNEUMONIA, UNSPECIFIED ORGANISM Qualifiers: Pneumonia type: due to unspecified organism Laterality: left Lung location: lower lobe of lung Qualified Code(s): J18.1 - Lobar pneumonia, unspecified organism (3) UTI (urinary tract infection) Assessment/Plan: - Urine Cultures-pending - Continue Zosyn - Monitor vitals Code(s): N39.0 - URINARY TRACT INFECTION, SITE NOT SPECIFIED Qualifiers: Urinary tract infection type: acute cystitis Hematuria presence: without hematuria Qualified Code(s): N30.00 - Acute cystitis without hematuria (4) Elevated troponin I level Assessment/Plan: - Likely secondary to Sepsis - Continue cardiac monitoring - Serial Enzymes - EKG- lateral ST changes - Cardiology Consulted - Asa Code(s): R74.8 - ABNORMAL LEVELS OF OTHER SERUM ENZYMES (5) Dementia Assessment/Plan: - Continue to monitor and treat accordingly - Fall Precautions Code(s): F03.90 - UNSPECIFIED DEMENTIA WITHOUT BEHAVIORAL DISTURBANCE Qualifiers: Dementia type: Alzheimer's disease Alzheimer's disease onset: unspecified onset Dementia behavioral disturbance: without behavioral disturbance Qualified Code(s): G30.9 - Alzheimer's disease, unspecified; F02.80 - Dementia in other diseases classified elsewhere without behavioral disturbance; F02.80 - Dementia in other diseases classified elsewhere without behavioral disturbance; F02.80 - Dementia in other diseases classified elsewhere without behavioral disturbance (6) DVT prophylaxis Assessment/Plan: - SCDs - Heparin SQ Code(s): [id number] - More than 45 minutes spent taking care of the patient.
[2017-10-02 09:59] LABS: TROPONIN I 0.11 ng/ml (0.00-0.05)
[2017-10-02] MEDS ORDERED: PIPERACIL/TAZOB 3.375 GM 3.375 GM/50 ML PREMIX IVPB SCH (10:00)
[2017-10-02 10:11] LABS: URINE LEUK ESTERASE 3+ (NEGATIVE)
[2017-10-02 10:34] LABS: MCH 26.2 pg (25.7-33.7); MCHC 31.1 g/dl (32.0-36.0); MEAN CELL VOLUME 84.4 fl (80-96); MEAN PLT VOLUME 9.6 fl (7.5-11.1); PLATELET COUNT 367 K/MM3 (134-434); RDW 15.6 % (11.6-15.6); WHITE BLOOD COUNT 21.9 K/mm3 (4.0-10.0)
[2017-10-02] MEDS ORDERED: PT OWN MED DRAWER 7, Y5N ONE ×2 (10:41→20:23)
[2017-10-02] MEDS: MUPIROCIN 2% TOPICAL OINTMENT FOR DECOLONIZATION NS SCH ×2 (10:57→22:27)
[2017-10-02] MEDS: NYSTATIN POWDER 100,000 UNITS/GM - 15 GM TOPICAL POWDER TP SCH ×2 (11:00→11:01)
--- NOTE | 2017-10-02 11:02 | CONS ---
DATE OF CONSULTATION: DATE OF DICTATION: 10/02/2017 REQUESTING PHYSICIAN: The hospitalist service. HISTORY OF PRESENT ILLNESS: This is an 86-year-old woman [facility]. She has a history of Alzheimer's dementia. She was sent to the ER with respiratory distress of acute onset. She had received some nitroglycerin in the emergency room for possible heart failure. She was placed on BiPAP because she was hypoxic. Chest x-ray showed atelectasis at the bases versus bibasilar infiltrate. She was noted to have pyuria, a temperature of 100.7, and a white count of 34.4. She was admitted to the ICU. As well, she had positive troponins. She is currently on BiPAP receiving and has been started on vancomycin and Zosyn. This is first admission to [facility] PAST MEDICAL HISTORY: Notable for pneumonia, dehydration, Alzheimer's disease. She has a history of a pressure ulcer in the past. There is no history of pneumonia in the past. There is no history of any resistant organisms. She was noted as well to have hypercapnic respiratory failure ALLERGIES: She has no known drug allergies. MEDICATIONS: [facility] the [facility] include aspirin, acetaminophen, Nephro-Milly, and Santyl. SOCIAL HISTORY: She resides [facility] the [facility]. There is no documentation of prior substance use history. Apparently, per the chart, the family wishes for everything to be done at this time. REVIEW OF SYSTEMS: Not obtainable. PHYSICAL EXAMINATION: General: She is awake. She is on BiPAP. Her eyes are open. She is responsive. She squeezes your hand, and she has her eyes open, but she is not following commands. Vital signs: Her maximum temperature is 100.7, current temperature is 98.2, pulse 90, blood pressure 96/44, respiratory rate 30, she is saturating 90% with FiO2 of 50% on BiPAP. HEENT: She is normocephalic. Her eyes are anicteric. I cannot examine her mouth because the BiPAP is on. Lungs: Have diminished breath sounds at the bases. Heart: Regular rate and rhythm. Abdomen: Soft. There is no distension. She has good bowel sounds. Canela is in place draining clear urine. Extremities: Without edema. Skin: She has no skin breakdown. She has 2+ dorsalis pedis ulcers. She has a large probably 8 x 10 cm necrotic foul-smelling ulcer on her upper back stage 3. She has a stage 1 sacral ulcer. DIAGNOSTIC DATA: White count was 34.4 from last night, repeat CBC is pending, hemoglobin 13.2, platelets 519. INR is 1. Blood gas revealed a pH of 7.25 with pCO2 of 54 and pO2 of 257. Chemistries are notable for normal liver function tests. BUN of 40, creatinine of 1.4, lactic acid 4.7. Troponin positive at 0.13. Urinalysis was notable for 673 white cells. Cultures are pending. Influenza screen was sent and was negative. SUMMARY: This is an 86-year-old woman admitted with sepsis, elevated lactic acid, hypotension, urinary tract infection, infected necrotic ulcer on her back, possible pneumonia, with dementia and positive troponins. I would continue the vancomycin and Zosyn, follow up her cultures, check the legionella urinary antigen, repeat labs are pending. Would trend her lactic acid and repeat a chest x-ray. Surgery should see her, as well, to debride the infected ulcer. Further recommendations to follow based on her clinical course. Approximately 35-40 minutes was spent in the care of this critically ill ICU patient. Care was discussed with the critical care team. ALFONZO GONZALEZ M.D. [id number]
[2017-10-02] MEDS: PIPERACILLIN/TAZOB 3.375 GM 3.375 GM in DEXTROSE 5%-WATER - 50 ML IVPB SCH (11:07)
--- NOTE | 2017-10-02 11:09 | PN ---
Teaching Attending Note Name of Resident: Bryson James ATTENDING PHYSICIAN STATEMENT I saw and evaluated the patient. I reviewed the resident's note and discussed the case with the resident. I agree with the resident's findings and plan as documented. SUBJECTIVE: Pt seen and examined in the ICU. Remains tachypneic on BiPAP. Pt nonverbal. Febrile to 100.7 OBJECTIVE: Last Vital Signs Temp Pulse Resp BP Pulse Ox 98.2 F 90 30 H 96/44 95 10/02/17 02:00 10/02/17 06:00 10/02/17 06:00 10/02/17 06:00 10/02/17 09:00 Intake & Output 09/29/17 09/30/17 10/01/17 10/02/17 23:59 23:59 23:59 23:59 Intake Total 420 Output Total 100 Balance 320 Weight 140 lb 136 lb 7.458 oz Gen: tachypneic on BiPAP Heart: RRR Lung: scattered rales Abd: soft, nontender Ext: no edema Back: foul smelling ulcer right upper back CBC, BMP 10/02/17 10:00 10/02/17 06:00 ABG Results ABG pH 7.25 (7.35-7.45) L 10/01/17 20:20 ABG pCO2 at Pt Temp 54.0 mmHg (35-45) H 10/01/17 20:20 ABG pO2 at Pt Temp 257.0 mmHg (68-100) H* 10/01/17 20:20 ABG HCO3 22.9 meq/L (22-26) 10/01/17 20:20 ABG O2 Sat (Measured) 99.1 % (90-98.9) H 10/01/17 20:20 ABG O2 Content 19.0 % vol (15-22) 10/01/17 20:20 ABG Base Excess -4.5 meq/l (-2-2) L 10/01/17 20:20 Active Medications Chlorhexidine Gluconate (Hibiclens For Decolonization -) 1 applic TP HS KEVIN Heparin Sodium (Porcine) (Heparin -) 5,000 unit SQ TID KEVIN Last Admin: 10/02/17 06:13 Dose: 5,000 unit Sodium Chloride (Normal Saline -) 1,000 mls @ 60 mls/hr IV ASDIR KEVIN Last Admin: 10/02/17 00:30 Dose: 60 mls/hr Vancomycin HCl 1,000 mg/ (Dextrose) 250 mls @ 166.667 mls/hr IVPB Q24H KEVIN Piperacillin Sod/Tazobactam (Sod 3.375 gm/ Dextrose) 50 mls @ 100 mls/hr IVPB Q8H-IV KEVIN Mupirocin (Bactroban Ointment (For Decolonization) -) 1 applic NS BID [facility] Stop: 10/07/17 09:59 Last Admin: 10/02/17 10:57 Dose: 1 applic Nystatin (Nystop Powder -) 1 applic TP DAILY [facility] Last Admin: 10/02/17 11:01 Dose: Not Given ASSESSMENT AND PLAN: Acute Hypercapneic Respiratory Failure UTI Infected Sacral Decubitus Ulcer Sepsis Lactic Acidosis Acute Kidney Injury Dementia - IV antibiotics to cover health care acquired organisms - f/u cultures - surgery evaluation for ulcer debridement - IVF - trend lactate - monitor urine output, creatinine - continue BiPAP for work of breathing - check ABG - O2 to keep Spo2 >90% - aspiration precautions - NPO for now - DVT prophylaxis - continue ICU monitoring critical care time spent in reviewing chart, evaluating patient and formulating plan 35 min
[2017-10-02] MEDS ORDERED: BENZOIN/ALOE VERA/STORAX/TOLU 58 ML BOTTLE ONE (11:41)
[2017-10-02 12:47] LABS: ARTERIAL BLOOD GAS PO2 91.4 mmHg (68-100); ARTERIAL BLOOD GAS pH 7.37 (7.35-7.45)
[2017-10-02 12:48] LABS: ARTERIAL BLOOD GAS HCO3 23.4 meq/L (22-26)
--- NOTE | 2017-10-02 13:03 | EKG ---
Test Reason : Blood Pressure : / mmHG Vent. Rate : 117 BPM Atrial Rate : 117 BPM P-R Int : 166 ms QRS Dur : 052 ms QT Int : 338 ms P-R-T Axes : 067 014 002 degrees QTc Int : 471 ms SINUS TACHYCARDIA WITH FUSION COMPLEXES LOW VOLTAGE QRS SEPTAL INFARCT , AGE UNDETERMINED ABNORMAL ECG WHEN COMPARED WITH ECG OF 01-OCT-2017 19:40, SIGNIFICANT CHANGES HAVE OCCURRED Confirmed by DEV SOLITARIO, AMAURY ([id number]) on 10/02/2017 1:03:00 PM Referred By: Confirmed By:AMAURY MÉNDEZ MD
[2017-10-02 13:07] LABS: ALLENS TEST POSITIVE
[2017-10-02 13:08] LABS: ART PUNCT SITE LEFT RADIAL; ARTERIAL BLOOD GAS BASE EXCESS -1.4 meq/l (-2-2)
--- NOTE | 2017-10-02 13:08 | EKG ---
Test Reason : Blood Pressure : / mmHG Vent. Rate : 093 BPM Atrial Rate : 093 BPM P-R Int : 136 ms QRS Dur : 074 ms QT Int : 402 ms P-R-T Axes : 026 009 -07 degrees QTc Int : 499 ms NORMAL SINUS RHYTHM LOW VOLTAGE QRS T WAVE ABNORMALITY, CONSIDER ANTEROLATERAL ISCHEMIA PROLONGED QT ABNORMAL ECG WHEN COMPARED WITH ECG OF 01-OCT-2017 20:23, FUSION COMPLEXES ARE NO LONGER PRESENT CRITERIA FOR SEPTAL INFARCT ARE NO LONGER PRESENT ST NO LONGER DEPRESSED IN ANTERIOR LEADS Confirmed by AMAURY MÉNDEZ MD ([id number]) on 10/02/2017 1:07:34 PM Referred By: Donavon REBOLLEDO Confirmed By:AMAURY MÉNDEZ MD
[2017-10-02 13:09] LABS: VENT RATE 14
[2017-10-02 13:10] LABS: ARTERIAL BLD GAS O2 SATURATION 96.9 % (90-98.9); PT. ON O2? 50%
--- NOTE | 2017-10-02 13:12 | CON.CARD ---
Consult Consult Specialty:: Cardiology Reason for Consultation:: dyspnea sepsis - History of Present Illness History of Present Illness: HPI: Briefly Ms Cardoza is an 86 year old woman with pmhx of dementia, aspiration pna, decubitus ulcer who presented to ED today via EMS for < 24Hr hrs of shortness of breath. She is a resident of [facility] and came in with her son. She in unable to provide hx. She is frail appearing and apparently has been in declining health. EMS felt she was in heart failure and she received 2 SL nitro prior to arrival in ED. In ED pt was febrile to 100, tachy w/HR 125, dyspneic with RR in high 20s, BP 76/56. She had significant wob and acute hypercapneic resp failure (7.25/54), started on Bilevel NIV. Labs otherwise notable for wbc 30K 10% bandemia, lactate 8, Cr 1.4 unk baseline. UA w / pyuria WBC 600+, +LE/N. CXR revealed perihilar congestion and possible RLL infiltrate vs atelectesis. EKG with some lateral ST changes, trop was 0.09, BNP 1200. She was started on Vancomycin, LVQ and Pip/Geovany for UTI and HAP, was given some gentle fluid resuscitation. Repeat abg pending. - History Source History Provided By: Medical Record Limitations to Obtaining History: Dementia - Alcohol/Substance Use Hx Alcohol Use: No - Smoking History Smoking history: Unknown if ever smoked Home Medications - Allergies Allergies/Adverse Reactions: Allergies Allergy/AdvReac Type Severity Reaction Status Date / Time No Known Allergies Allergy Verified 10/01/17 20:02 - Home Medications Home Medications: Ambulatory Orders Acetaminophen 325 mg PO DAILY 10/01/17 Aspirin [ASA -] 81 mg PO DAILY 10/01/17 Vitamin B Comp W-C [Nephro-Milly -] 1 tablet PO DAILY 10/01/17 Vitamin B Comp W-C [Nephro-Milly -] 1 tablet PO DAILY 10/01/17 Review of Systems - Review of Systems Constitutional: reports: No Symptoms Eyes: reports: No Symptoms HENT: reports: No Symptoms Neck: reports: No Symptoms Cardiovascular: reports: No Symptoms Respiratory: reports: SOB Gastrointestinal: reports: No Symptoms Genitourinary: reports: No Symptoms Breasts: reports: No Symptoms Reported Musculoskeletal: reports: No Symptoms Integumentary: reports: No Symptoms Neurological: reports: No Symptoms Endocrine: reports: No Symptoms Hematology/Lymphatic: reports: No Symptoms Psychiatric: reports: No Symptoms Vital Signs: Vital Signs Temperature 98.2 F 10/02/17 02:00 Pulse Rate 92 H 10/02/17 10:40 Respiratory Rate 31 H 10/02/17 10:00 Blood Pressure 94/31 10/02/17 10:00 O2 Sat by Pulse Oximetry (%) 99 10/02/17 10:40 Constitutional: Yes: Well Nourished, No Distress, Calm Eyes: Yes: WNL, Conjunctiva Clear, EOM Intact HENT: Yes: WNL, Atraumatic, Normocephalic Neck: Yes: WNL, Supple, Trachea Midline Respiratory: Yes: Diminished, On Venti-Mask, Poor Air Entry Gastrointestinal: Yes: WNL, Normal Bowel Sounds Renal/: Yes: WNL Cardiovascular: Yes: WNL, Regular Rate and Rhythm Musculoskeletal: Yes: WNL Extremities: Yes: WNL Integumentary: Yes: WNL Neurological: Yes: WNL, Alert, Oriented ...Motor Strength: WNL Psychiatric: Yes: WNL, Alert, Oriented - Other Data Labs, Other Data: CBC, BMP 10/02/17 10:00 10/02/17 06:00 INR, PTT INR 1.05 (0.82-1.09) 10/01/17 19:30 Troponin, BNP 10/01/17 10/01/17 10/01/17 19:30 19:30 21:20 Troponin I Cancelled 0.09 H B-Natriuretic Peptide Cancelled 10/01/17 10/02/17 10/02/17 21:20 02:15 09:00 Troponin I 0.13 H 0.11 H B-Natriuretic Peptide 1255.62 H Troponin, BNP 10/01/17 10/01/17 10/01/17 19:30 19:30 21:20 Troponin I Cancelled 0.09 H B-Natriuretic Peptide Cancelled 10/01/17 10/02/17 10/02/17 21:20 02:15 09:00 Troponin I 0.13 H 0.11 H B-Natriuretic Peptide 1255.62 H Imaging - Results Chest X-ray: Image Reviewed (atelectasis no obvious i/e) EKG: Image Reviewed (s tachy, rep abn prolonged qt) Problem List - Problems (1) DVT prophylaxis Code(s): LNV2306 - (2) Dementia Code(s): F03.90 - UNSPECIFIED DEMENTIA WITHOUT BEHAVIORAL DISTURBANCE Qualifiers: Dementia type: Alzheimer's disease Alzheimer's disease onset: unspecified onset Dementia behavioral disturbance: without behavioral disturbance Qualified Code(s): G30.9 - Alzheimer's disease, unspecified; F02.80 - Dementia in other diseases classified elsewhere without behavioral disturbance; F02.80 - Dementia in other diseases classified elsewhere without behavioral disturbance; F02.80 - Dementia in other diseases classified elsewhere without behavioral disturbance (3) Elevated troponin I level Code(s): R74.8 - ABNORMAL LEVELS OF OTHER SERUM ENZYMES (4) Infected pressure ulcer Code(s): L89.90 - PRESSURE ULCER OF UNSPECIFIED SITE, UNSPECIFIED STAGE; L08.9 - LOCAL INFECTION OF THE SKIN AND SUBCUTANEOUS TISSUE, UNSP (5) Pneumonia Code(s): J18.9 - PNEUMONIA, UNSPECIFIED ORGANISM Qualifiers: Pneumonia type: due to unspecified organism Laterality: left Lung location: lower lobe of lung Qualified Code(s): J18.1 - Lobar pneumonia, unspecified organism (6) Sepsis Code(s): A41.9 - SEPSIS, UNSPECIFIED ORGANISM Qualifiers: Sepsis type: sepsis due to unspecified organism Qualified Code(s): A41.9 - Sepsis, unspecified organism (7) UTI (urinary tract infection) Code(s): N39.0 - URINARY TRACT INFECTION, SITE NOT SPECIFIED Qualifiers: Urinary tract infection type: acute cystitis Hematuria presence: without hematuria Qualified Code(s): N30.00 - Acute cystitis without hematuria Assessment/Plan imp; Acute Hypercapneic Respiratory Failure UTI Infected Sacral Decubitus Ulcer Sepsis Lactic Acidosis Acute Kidney Injury Dementia elevated bnp and tni's - most likely due to sepsis Plan abx icu support echo will f/u cc time 70 min
--- NOTE | 2017-10-02 13:18 | EKG ---
Test Reason : Blood Pressure : / mmHG Vent. Rate : 125 BPM Atrial Rate : 129 BPM P-R Int : 136 ms QRS Dur : 058 ms QT Int : 190 ms P-R-T Axes : 114 013 125 degrees QTc Int : 274 ms UNDETERMINED RHYTHM LOW VOLTAGE QRS ST ELEVATION CONSIDER INFEROLATERAL INJURY OR ACUTE INFARCT ACUTE [place] / STEMI Consider right ventricular involvement in acute inferior infarct ABNORMAL ECG NO PREVIOUS ECGS AVAILABLE Confirmed by DEV SOLITARIO, AMAURY ([id number]) on 10/02/2017 1:18:02 PM Referred By: Confirmed By:AMAURY MÉNDEZ MD
[2017-10-02 13:22] LABS: MECH. VENT. Y; TYPE OF O2 BIPAP
[2017-10-02 14:16] LABS: TOTAL CELLS COUNTED 100
[2017-10-02 14:17] LABS: PLATELET ESTIMATE ADEQUATE
--- NOTE | 2017-10-02 14:28 | CONSULT ---
Consult - Alcohol/Substance Use Hx Alcohol Use: No - Smoking History Smoking history: Unknown if ever smoked Home Medications - Allergies Allergies/Adverse Reactions: Allergies Allergy/AdvReac Type Severity Reaction Status Date / Time No Known Allergies Allergy Verified 10/01/17 20:02 - Home Medications Home Medications: Ambulatory Orders Acetaminophen 325 mg PO DAILY 10/01/17 Aspirin [ASA -] 81 mg PO DAILY 10/01/17 Vitamin B Comp W-C [Nephro-Milly -] 1 tablet PO DAILY 10/01/17 Vitamin B Comp W-C [Nephro-Milly -] 1 tablet PO DAILY 10/01/17 Physical Exam Vital Signs: Vital Signs Temperature 98.2 F 10/02/17 02:00 Pulse Rate 95 H 10/02/17 12:00 Respiratory Rate 33 H 10/02/17 12:00 Blood Pressure 84/58 10/02/17 12:00 O2 Sat by Pulse Oximetry (%) 99 10/02/17 10:40 Labs: CBC, BMP 10/02/17 10:00 10/02/17 06:00 Assessment/Plan VAscular Surgery This is a 86 y/o woman with a past medical history of Dementia, Aspirated Pneumonia, Decubitus Ulcer. Who presents to the ED from the [facility] with SOB. Patient was found to be in respiratory distress by EMS and was given Nitro x2 for presumed CHF. Patient arrived to the ED with vitals T - 100.7 (Rectal), P 125, R 26, BP 76/56, Spo2 92~88%. Patient was placed on BIPAP. Patient's lab values showed a WBC 33.4 with Bandemia, LA 7.9. In the ED , patient was given broad spectrum antibiotics, with blood cultures pending, fluid bolus, Tylenol. The chest xray image ?RLL infiltrate. Admit to ICU for Severe Sepsis secondary to UTI, Pneumonia ER course was notable for: (1) Severe Sepsis- T- 100.7 (Rectal), P 125, R 26, BP 76/56, Spo2 92~88%. WBC 34.4, LA 7.9 (2) Chest Xray- possible RLL infiltrate (3) UA- +Nitrates, WBC 600+ (4) Trop I- 0.09 Recent Travel: None PAST MEDICAL HISTORY: Dementia Aspirated Pneumonia Decubitus Ulcer PAST SURGICAL HISTORY: Unknown Social History: Smoking: Unknown Alcohol: None Drugs: None Resides in a SNF PE Head - Nc/at lung - cTa, on O2 Heart - RRR abd - soft,nt,nd ext - warm, pink. upper back wound - odor, minimal slough with clean pink base. Wound probed to look for pus pockets, could not find pus. A/P Upper back stage 4 ulcer with odor. 1. minimal slough with good clean base. 2. Cont santyl daily. 3. offload area. 4. Will monitor if area becomes more infected with pus and needs debridement. Lexx Ma DO
--- NOTE | 2017-10-02 15:32 | CONSULT ---
Consultation: REQUESTING PROVIDER: CONSULT REQUEST: We have been asked to medically evaluate this patient for Sepsis in ICU. HISTORY OF PRESENT ILLNESS: Pt is nonverbal. Hx taken from family and records. REVIEW OF SYSTEMS: CONSTITUTIONAL: Absent: fever, chills, diaphoresis, generalized weakness, malaise, loss of appetite, weight change HEENT: Absent: rhinorrhea, nasal congestion, throat pain, throat swelling, difficulty swallowing, mouth swelling, ear pain, eye pain, visual changes CARDIOVASCULAR: Absent: chest pain, syncope, palpitations, irregular heart rate, lightheadedness , peripheral edema RESPIRATORY: Absent: cough, shortness of breath, dyspnea with exertion, orthopnea, wheezing, stridor, hemoptysis GASTROINTESTINAL: Absent: abdominal pain, abdominal distension, nausea, vomiting, diarrhea, constipation, melena, hematochezia GENITOURINARY: Absent: dysuria, frequency, urgency, hesitancy, hematuria, flank pain, genital pain MUSCULOSKELETAL: Absent: myalgia, arthralgia, joint swelling, back pain, neck pain SKIN: Absent: rash, itching, pallor HEMATOLOGIC/IMMUNOLOGIC: Absent: easy bleeding, easy bruising, lymphadenopathy, frequent infections ENDOCRINE: Absent: unexplained weight gain, unexplained weight loss, heat intolerance, cold intolerance NEUROLOGIC: Absent: headache, focal weakness or paresthesias, dizziness, unsteady gait, seizure, mental status changes, bladder or bowel incontinence PSYCHIATRIC: Absent: anxiety, depression, suicidal or homicidal ideation, hallucinations. PHYSICAL EXAMINATION Vital Signs - 24 hr 10/01/17 10/01/17 10/01/17 19:25 19:27 19:36 Temperature 100.7 F H Pulse Rate 125 H Respiratory 26 H Rate Blood Pressure 76/56 O2 Sat by Pulse 94 L 88 L Oximetry (%) 10/01/17 10/01/17 10/01/17 19:51 22:45 23:43 Temperature 100.7 F H Pulse Rate Respiratory Rate Blood Pressure O2 Sat by Pulse 100 96 96 Oximetry (%) 10/02/17 10/02/17 10/02/17 00:49 00:50 00:56 Temperature 98.9 F Pulse Rate 85 Respiratory 22 Rate Blood Pressure 90/64 O2 Sat by Pulse 94 L 96 Oximetry (%) 10/02/17 10/02/17 10/02/17 01:04 02:00 03:40 Temperature 98.2 F Pulse Rate 87 Respiratory 27 H Rate Blood Pressure 95/50 O2 Sat by Pulse 98 98 Oximetry (%) 10/02/17 10/02/17 10/02/17 04:00 04:43 06:00 Temperature Pulse Rate 90 90 90 Respiratory 27 H 30 H 30 H Rate Blood Pressure 74/66 95/71 96/44 O2 Sat by Pulse Oximetry (%) 10/02/17 10/02/17 10/02/17 06:38 08:00 09:00 Temperature Pulse Rate 93 H Respiratory 33 H Rate Blood Pressure 100/69 O2 Sat by Pulse 96 95 Oximetry (%) 10/02/17 10/02/17 10/02/17 10:00 10:40 12:00 Temperature Pulse Rate 102 H 92 H 95 H Respiratory 31 H 33 H Rate Blood Pressure 94/31 84/58 O2 Sat by Pulse 94 L 99 Oximetry (%) GENERAL: Awake, alert, and fully oriented, in no acute distress. HEAD: Normal with no signs of trauma. EYES: Pupils equal, round and reactive to light, extraocular movements intact, sclera anicteric, conjunctiva clear. No lid lag. EARS, NOSE, THROAT: Ears normal, nares patent, oropharynx clear without exudates. Moist mucous membranes. NECK: Normal range of motion, supple without lymphadenopathy, JVD, or masses. LUNGS: Breath sounds equal, clear to auscultation bilaterally. No wheezes, and no crackles. No accessory muscle use. HEART: Regular rate and rhythm, normal S1 and S2 without murmur, rub or gallop. ABDOMEN: Soft, nontender, not distended, normoactive bowel sounds, no guarding, no rebound, no masses. No hepatomegaly or splenomegaly. MUSCULOSKELETAL: Normal range of motion at all joints. No bony deformities or tenderness. No CVA tenderness. UPPER EXTREMITIES: 2+ pulses, warm, well-perfused. No cyanosis. No clubbing. Cap refill <2 seconds. No peripheral edema. LOWER EXTREMITIES: 2+ pulses, warm, well-perfused. No calf tenderness. No peripheral edema. NEUROLOGICAL: Cranial nerves II-XII intact. Normal speech. Normal gait. PSYCHIATRIC: Cooperative. Good eye contact. Appropriate mood and affect. SKIN: Warm, dry, normal turgor, no rashes or lesions noted. Laboratory Results - last 24 hr 11/10/01/17 10/01/17 19:30 19:30 19:30 WBC 34.4 H* Corrected WBC (auto) RBC 4.98 Hgb 13.2 Hct 42.4 MCV 85.1 MCH 26.4 MCHC 31.0 L RDW 15.9 H Plt Count 519 H MPV 10.7 Total Counted 100 Neutrophils % No Result Required. Neutrophils % (Manual) 75.0 Band Neutrophils % 10.0 Lymphocytes % No Result Required. Lymphocytes % (Manual) 10.0 Monocytes % Monocytes % (Manual) 3 L Eosinophils % Basophils % Platelet Estimate Increased Platelet Comment No clumping noted PT with INR 11.90 H INR 1.05 PTT (Actin FS) 28.6 Puncture Site ABG pH ABG pCO2 at Pt Temp ABG pO2 at Pt Temp ABG HCO3 ABG O2 Sat (Measured) ABG O2 Content ABG Base Excess Jhon Test O2 Delivery Device Oxygen Flow Rate Vent Mode Vent Rate Mechanical Rate PEEP Pressure Support Vent Sodium Cancelled Potassium Cancelled Chloride Cancelled Carbon Dioxide Cancelled Anion Gap Cancelled BUN Cancelled Creatinine Cancelled Creat Clearance w eGFR Cancelled Random Glucose Cancelled Lactic Acid Calcium Cancelled Phosphorus Magnesium Total Bilirubin Cancelled AST Cancelled ALT Cancelled Alkaline Phosphatase Cancelled Creatine Kinase Creatine Kinase Index CK-MB (CK-2) Troponin I B-Natriuretic Peptide Total Protein Cancelled Albumin Cancelled Urine Color Urine Appearance Urine pH Ur Specific Brutus Urine Protein Urine Glucose (UA) Urine Ketones Urine Blood Urine Nitrite Urine Bilirubin Urine Urobilinogen Ur Leukocyte Esterase Urine WBC (Auto) Urine RBC (Auto) Urine RBC Ur Epithelial Cells Urine Bacteria Urine Mucus Urine Yeast Blood Type Antibody Screen 10/01/17 10/01/17 10/01/17 19:30 19:30 19:30 WBC Corrected WBC (auto) RBC Hgb Hct MCV MCH MCHC RDW Plt Count MPV Total Counted Neutrophils % Neutrophils % (Manual) Band Neutrophils % Lymphocytes % Lymphocytes % (Manual) Monocytes % Monocytes % (Manual) Eosinophils % Basophils % Platelet Estimate Platelet Comment PT with INR INR PTT (Actin FS) Puncture Site ABG pH ABG pCO2 at Pt Temp ABG pO2 at Pt Temp ABG HCO3 ABG O2 Sat (Measured) ABG O2 Content ABG Base Excess Jhon Test O2 Delivery Device Oxygen Flow Rate Vent Mode Vent Rate Mechanical Rate PEEP Pressure Support Vent Sodium Potassium Chloride Carbon Dioxide Anion Gap BUN Creatinine Creat Clearance w eGFR Random Glucose Lactic Acid 7.9 H* Calcium Phosphorus Magnesium Total Bilirubin AST ALT Alkaline Phosphatase Creatine Kinase Cancelled Creatine Kinase Index CK-MB (CK-2) Troponin I Cancelled B-Natriuretic Peptide Total Protein Albumin Urine Color Urine Appearance Urine pH Ur Specific Brutus Urine Protein Urine Glucose (UA) Urine Ketones Urine Blood Urine Nitrite Urine Bilirubin Urine Urobilinogen Ur Leukocyte Esterase Urine WBC (Auto) Urine RBC (Auto) Urine RBC Ur Epithelial Cells Urine Bacteria Urine Mucus Urine Yeast Blood Type O POSITIVE Antibody Screen Negative 10/01/17 10/01/17 10/01/17 19:30 20:20 21:20 WBC Corrected WBC (auto) RBC Hgb Hct MCV MCH MCHC RDW Plt Count MPV Total Counted Neutrophils % Neutrophils % (Manual) Band Neutrophils % Lymphocytes % Lymphocytes % (Manual) Monocytes % Monocytes % (Manual) Eosinophils % Basophils % Platelet Estimate Platelet Comment PT with INR INR PTT (Actin FS) Puncture Site Left radial ABG pH 7.25 L ABG pCO2 at Pt Temp 54.0 H ABG pO2 at Pt Temp 257.0 H* ABG HCO3 22.9 ABG O2 Sat (Measured) 99.1 H ABG O2 Content 19.0 ABG Base Excess -4.5 L Jhon Test Positive O2 Delivery Device Bipap Oxygen Flow Rate 100% Vent Mode S/t Vent Rate 14 Mechanical Rate PEEP Pressure Support Vent 12/6 Sodium 145 Potassium 3.8 Chloride 109 H Carbon Dioxide 23 Anion Gap 13 BUN 34 H Creatinine 1.5 H Creat Clearance w eGFR 32.85 Random Glucose 209 H Lactic Acid Calcium 8.3 L Phosphorus Magnesium Total Bilirubin 0.5 AST 19 ALT 26 Alkaline Phosphatase 70 Creatine Kinase Creatine Kinase Index CK-MB (CK-2) Troponin I B-Natriuretic Peptide Cancelled Total Protein 6.7 Albumin 2.7 L Urine Color Urine Appearance Urine pH Ur Specific Brutus Urine Protein Urine Glucose (UA) Urine Ketones Urine Blood Urine Nitrite Urine Bilirubin Urine Urobilinogen Ur Leukocyte Esterase Urine WBC (Auto) Urine RBC (Auto) Urine RBC Ur Epithelial Cells Urine Bacteria Urine Mucus Urine Yeast Blood Type Antibody Screen 10/01/17 10/01/17 10/01/17 21:20 21:20 22:00 WBC Corrected WBC (auto) RBC Hgb Hct MCV MCH MCHC RDW Plt Count MPV Total Counted Neutrophils % Neutrophils % (Manual) Band Neutrophils % Lymphocytes % Lymphocytes % (Manual) Monocytes % Monocytes % (Manual) Eosinophils % Basophils % Platelet Estimate Platelet Comment PT with INR INR PTT (Actin FS) Puncture Site ABG pH ABG pCO2 at Pt Temp ABG pO2 at Pt Temp ABG HCO3 ABG O2 Sat (Measured) ABG O2 Content ABG Base Excess Jhon Test O2 Delivery Device Oxygen Flow Rate Vent Mode Vent Rate Mechanical Rate PEEP Pressure Support Vent Sodium Potassium Chloride Carbon Dioxide Anion Gap BUN Creatinine Creat Clearance w eGFR Random Glucose Lactic Acid Calcium Phosphorus Magnesium Total Bilirubin AST ALT Alkaline Phosphatase Creatine Kinase 140 Creatine Kinase Index CK-MB (CK-2) Troponin I 0.09 H B-Natriuretic Peptide 1255.62 H Total Protein Albumin Urine Color Angie Urine Appearance Turbid Urine pH 7.0 Ur Specific Brutus 1.025 Urine Protein 3+ H Urine Glucose (UA) Negative Urine Ketones Negative Urine Blood Negative Urine Nitrite Positive Urine Bilirubin Negative Urine Urobilinogen Negative Ur Leukocyte Esterase 3+ H Urine WBC (Auto) 673 Urine RBC (Auto) 61 Urine RBC No Result Required. Ur Epithelial Cells Few Urine Bacteria Many Urine Mucus Many Urine Yeast Many Blood Type Antibody Screen 10/01/17 10/02/17 10/02/17 23:20 02:15 06:00 WBC Cancelled Corrected WBC (auto) Cancelled RBC Cancelled Hgb Cancelled Hct Cancelled MCV Cancelled MCH Cancelled MCHC Cancelled RDW Cancelled Plt Count Cancelled MPV Cancelled Total Counted Neutrophils % Cancelled Neutrophils % (Manual) Band Neutrophils % Lymphocytes % Cancelled Lymphocytes % (Manual) Monocytes % Cancelled Monocytes % (Manual) Eosinophils % Cancelled Basophils % Cancelled Platelet Estimate Platelet Comment PT with INR INR PTT (Actin FS) Puncture Site ABG pH ABG pCO2 at Pt Temp ABG pO2 at Pt Temp ABG HCO3 ABG O2 Sat (Measured) ABG O2 Content ABG Base Excess Jhon Test O2 Delivery Device Oxygen Flow Rate Vent Mode Vent Rate Mechanical Rate PEEP Pressure Support Vent Sodium Potassium Chloride Carbon Dioxide Anion Gap BUN Creatinine Creat Clearance w eGFR Random Glucose Lactic Acid 4.7 H* Calcium Phosphorus Magnesium Total Bilirubin AST ALT Alkaline Phosphatase Creatine Kinase 179 Creatine Kinase Index 2.4 CK-MB (CK-2) 4.455 H Troponin I 0.13 H B-Natriuretic Peptide Total Protein Albumin Urine Color Urine Appearance Urine pH Ur Specific Brutus Urine Protein Urine Glucose (UA) Urine Ketones Urine Blood Urine Nitrite Urine Bilirubin Urine Urobilinogen Ur Leukocyte Esterase Urine WBC (Auto) Urine RBC (Auto) Urine RBC Ur Epithelial Cells Urine Bacteria Urine Mucus Urine Yeast Blood Type Antibody Screen 10/02/17 10/02/17 10/02/17 06:00 09:00 09:00 WBC Corrected WBC (auto) RBC Hgb Hct MCV MCH MCHC RDW Plt Count MPV Total Counted Neutrophils % Neutrophils % (Manual) Band Neutrophils % Lymphocytes % Lymphocytes % (Manual) Monocytes % Monocytes % (Manual) Eosinophils % Basophils % Platelet Estimate Platelet Comment PT with INR INR PTT (Actin FS) Puncture Site ABG pH ABG pCO2 at Pt Temp ABG pO2 at Pt Temp ABG HCO3 ABG O2 Sat (Measured) ABG O2 Content ABG Base Excess Jhon Test O2 Delivery Device Oxygen Flow Rate Vent Mode Vent Rate Mechanical Rate PEEP Pressure Support Vent Sodium 142 Potassium 4.9 D Chloride 107 Carbon Dioxide 24 Anion Gap 11 BUN 40 H Creatinine 1.4 H Creat Clearance w eGFR 35.57 Random Glucose 117 H D Lactic Acid 3.9 H* Calcium 8.1 L Phosphorus 5.5 H Magnesium 2.2 Total Bilirubin 1.0 D AST 39 H D ALT 27 Alkaline Phosphatase 71 Creatine Kinase 149 Creatine Kinase Index CK-MB (CK-2) Troponin I 0.11 H B-Natriuretic Peptide Total Protein 6.8 Albumin 2.6 L Urine Color Urine Appearance Urine pH Ur Specific Brutus Urine Protein Urine Glucose (UA) Urine Ketones Urine Blood Urine Nitrite Urine Bilirubin Urine Urobilinogen Ur Leukocyte Esterase Urine WBC (Auto) Urine RBC (Auto) Urine RBC Ur Epithelial Cells Urine Bacteria Urine Mucus Urine Yeast Blood Type Antibody Screen 10/02/17 10/02/17 10/02/17 09:00 10:00 12:36 WBC Cancelled 21.9 H D Corrected WBC (auto) Cancelled RBC Cancelled 5.08 Hgb Cancelled 13.3 Hct Cancelled 42.9 MCV Cancelled 84.4 MCH Cancelled 26.2 MCHC Cancelled 31.1 L RDW Cancelled 15.6 Plt Count Cancelled 367 D MPV Cancelled 9.6 D Total Counted 100 Neutrophils % Cancelled No Result Required. Neutrophils % (Manual) 85.0 H Band Neutrophils % 1.0 Lymphocytes % Cancelled No Result Required. Lymphocytes % (Manual) 9.0 Monocytes % Cancelled Monocytes % (Manual) 5 Eosinophils % Cancelled Basophils % Cancelled Platelet Estimate Adequate Platelet Comment PT with INR INR PTT (Actin FS) Puncture Site Left radial ABG pH 7.37 ABG pCO2 at Pt Temp 41.7 D ABG pO2 at Pt Temp 91.4 D ABG HCO3 23.4 ABG O2 Sat (Measured) 96.9 ABG O2 Content 18.1 ABG Base Excess -1.4 Jhon Test Positive O2 Delivery Device Bipap Oxygen Flow Rate 50% Vent Mode St Vent Rate 14 Mechanical Rate Y PEEP 0.0 Pressure Support Vent 12/6 Sodium Potassium Chloride Carbon Dioxide Anion Gap BUN Creatinine Creat Clearance w eGFR Random Glucose Lactic Acid Calcium Phosphorus Magnesium Total Bilirubin AST ALT Alkaline Phosphatase Creatine Kinase Creatine Kinase Index CK-MB (CK-2) Troponin I B-Natriuretic Peptide Total Protein Albumin Urine Color Urine Appearance Urine pH Ur Specific Brutus Urine Protein Urine Glucose (UA) Urine Ketones Urine Blood Urine Nitrite Urine Bilirubin Urine Urobilinogen Ur Leukocyte Esterase Urine WBC (Auto) Urine RBC (Auto) Urine RBC Ur Epithelial Cells Urine Bacteria Urine Mucus Urine Yeast Blood Type Antibody Screen Active Medications Generic Name Dose Route Start Last Admin Trade Name Freq PRN Reason Stop Dose Admin Chlorhexidine Gluconate 1 applic 10/02/17 22:00 Hibiclens For Decolonization - TP HS KEVIN Heparin Sodium (Porcine) 5,000 unit 10/02/17 06:00 10/02/17 06:13 Heparin - SQ 5,000 unit TID KEVIN Administration Sodium Chloride 1,000 mls @ 60 mls/hr 10/02/17 00:15 10/02/17 00:30 Normal Saline - IV 60 mls/hr ASDIR KEVIN Administration Vancomycin HCl 1,000 mg/ 250 mls @ 166.667 mls/hr 10/02/17 21:00 Dextrose IVPB Q24H KEVIN Piperacillin Sod/Tazobactam 50 mls @ 100 mls/hr 10/02/17 10:00 10/02/17 11:07 Sod 3.375 gm/ Dextrose IVPB 100 mls/hr Q8H-IV KEVIN Administration Mupirocin 1 applic 10/02/17 10:00 10/02/17 10:57 Bactroban Ointment (For Decolonization) - NS 10/07/17 09:59 1 applic BID KEVIN Administration Nystatin 1 applic 10/02/17 09:00 10/02/17 11:01 Nystop Powder - TP Not Given DAILY [facility] ASSESSMENT/PLAN: Pt is an 86F w/ PMH Dementia, Aspirated Pneumonia, stage III Decubitus Ulcer on the back. Pt is admitted to ICU for sepsis. #Sepsis -In ED: WBC 33.4 with Bandemia, LA 7.9, P 125, R 26, BP 76/56, Spo2 92~88%, T- 100.7 -LA trending down. 3.9 now -WBC trending down 21.9 -source could be decub ulcer vs UTI vs possible PNA -[place] Cx pending -NS -Vanc/Zosyn -ID on board #Decubitous ulcer -Stage III -surg consult for debriedment -wound care #Troponinemia -pt produced trop peak of 0.13 -Cardiology on board -likely 2/2 sepsis #LEA -Hose Sprayer 1.5-> 1.4 -baseline unknown -c/w fluid -repeat chem #UTI -pt on Abx -ID on board #Dementia -Pt nonverbal #FEN -NS -Lytes wnl -NPO for now #PPx -Hep SubQ Dispo: We will continue to follow the patient. Thank you for this consultative opportunity. Spoke with Pt's son who is her health proxy today. Pt is full code and should be intubated if necessary. Bryson James MD PGY-1, ICU case discussed with attending Visit type - Emergency Visit Emergency Visit: No - New Patient This patient is new to me today: Yes Date on this admission: 10/02/17 - Critical Care Critical Care patient: Yes Total Critical Care Time (in minutes): 35 Critical Care Statement: The care of this patient involved high complexity decision making to prevent further life threatening deterioration of the patient 's condition and/or to evaluate & treat vital organ system(s) failure or risk of failure.
[2017-10-02] MEDS ORDERED: FUROSEMIDE 40 MG/4 ML INJECTABLE VIAL IVPUSH ONE (16:26)
[2017-10-02] MEDS ORDERED: FUROSEMIDE 40 MG/4 ML INJECTABLE VIAL ONE (16:32)
--- NOTE | 2017-10-02 18:07 | PN ---
Progress Note (short form) - Note Progress Note: -Patient sob; with accessory muscle use; O2 desaturation -stat CXR increased infiltrate -BiPAP setting changed to increased FiO2 to 100%; I?E 01/05; RR14 -lasix 4mg IV x1
[2017-10-02] MEDS ORDERED: DOPAMINE 400 MG/D5W - 400,000 MCG/250 ML INFUS.BAG IVPB SCH ×2 (18:15→19:08)
[2017-10-02] MEDS ORDERED: VANCOMYCIN 1,000 MG in DEXTROSE 5%-WATER - 250 ML IVPB SCH (21:00)
[2017-10-02] MEDS ORDERED: CHLORHEXIDINE GLUCONATE 4% CLEANSER FOR DECOLONIZATION TP SCH (22:00)
[2017-10-02] MEDS: COLLAGENASE CLOSTRIDIUM HIST. 30 GRAMS TUBE TP SCH (22:27)
[2017-10-03] MEDS: SODIUM CHLORIDE 1,000 ML IV SCH (01:00)
[2017-10-03] MEDS ORDERED: PT OWN MED DRAWER 7, Y5N ONE ×3 (02:03→18:03)
[2017-10-03] MEDS: PIPERACILLIN/TAZOB 3.375 GM 3.375 GM in DEXTROSE 5%-WATER - 50 ML IVPB SCH ×4 (02:08→18:29)
[2017-10-03] MEDS: HEPARIN NA (PORCINE) 5,000 UNITS/ML 1ML VIAL SQ SCH ×3 (06:45→22:14)
[2017-10-03 06:48] LABS: BASOPHIL 0.1 % (0-2.0); MCH 26.4 pg (25.7-33.7); MCHC 31.7 g/dl (32.0-36.0); MEAN CELL VOLUME 83.2 fl (80-96); MEAN PLT VOLUME 10.1 fl (7.5-11.1); PLATELET COUNT 333 K/MM3 (134-434); RDW 15.7 % (11.6-15.6); WHITE BLOOD COUNT 24.4 K/mm3 (4.0-10.0)
[2017-10-03 07:22] LABS: ALBUMIN 2.3 g/dl (3.4-5.0); ANION GAP 12 (8-16); CALCIUM 8.3 mg/dL (8.5-10.1); CO2 24 mmol/L (21-32); CREATININE 1.6 mg/dL (0.55-1.02); GLUCOSE,RANDOM 121 mg/dL (74-106); MAGNESIUM 2.1 mg/dL (1.8-2.4); PHOSPHOROUS 3.6 mg/dL (2.5-4.9); SGOT/AST 17 U/L (15-37); SGPT/ALT 25 U/L (12-78)
[2017-10-03 07:24] LABS: ALK PHOS 63 U/L (45-117); BILIRUBIN,TOTAL 0.6 mg/dL (0.2-1.0); TOT PROT 6.3 g/dl (6.4-8.2)
--- NOTE | 2017-10-03 08:23 | PN ---
Progress Note, Physician Chief Complaint: ID Breathing 44 times a minute in obvious distress Empiric antibiotics Vancomycin and Zosyn - Current Medication List Current Medications: Active Medications Chlorhexidine Gluconate (Hibiclens For Decolonization -) 1 applic TP HS [facility] Last Admin: 10/02/17 22:27 Dose: 1 applic Collagenase (Santyl -) 1 applic TP DAILY KEVIN Last Admin: 10/02/17 22:27 Dose: 1 applic Heparin Sodium (Porcine) (Heparin -) 5,000 unit SQ TID [facility] Last Admin: 10/03/17 06:45 Dose: 5,000 unit Sodium Chloride (Normal Saline -) 1,000 mls @ 60 mls/hr IV ASDIR KEVIN Last Admin: 10/03/17 01:00 Dose: 60 mls/hr Vancomycin HCl 1,000 mg/ (Dextrose) 250 mls @ 166.667 mls/hr IVPB Q24H [facility] Last Admin: 10/02/17 20:34 Dose: 166.667 mls/hr Piperacillin Sod/Tazobactam (Sod 3.375 gm/ Dextrose) 50 mls @ 100 mls/hr IVPB Q8H-IV KEVIN Last Admin: 10/03/17 02:08 Dose: 100 mls/hr Dopamine HCl/Dextrose (Dopamine 400 Mg/D5w -) 400,000 mcg in 250 mls @ 11.606 mls/hr IVPB TITR KEVIN; 5 MCG/KG/MIN PRN Reason: Protocol Mupirocin (Bactroban Ointment (For Decolonization) -) 1 applic NS BID [facility] Stop: 10/07/17 09:59 Last Admin: 10/02/17 22:27 Dose: 1 applic Nystatin (Nystop Powder -) 1 applic TP DAILY [facility] Last Admin: 10/02/17 11:01 Dose: Not Given - Objective Vital Signs: Vital Signs Temperature 98.0 F 10/03/17 06:00 Pulse Rate 96 H 10/03/17 06:00 Respiratory Rate 37 H 10/03/17 07:43 Blood Pressure 107/86 10/03/17 06:00 O2 Sat by Pulse Oximetry (%) 99 10/03/17 08:09 Constitutional: Yes: Severe Distress Cardiovascular: Yes: S1, S2 Labs: CBC, BMP 10/03/17 05:22 10/03/17 05:22 INR, PTT INR 1.05 (0.82-1.09) 10/01/17 19:30 Problem List - Problems (1) Infected pressure ulcer Code(s): L89.90 - PRESSURE ULCER OF UNSPECIFIED SITE, UNSPECIFIED STAGE; L08.9 - LOCAL INFECTION OF THE SKIN AND SUBCUTANEOUS TISSUE, UNSP (2) Pneumonia Code(s): J18.9 - PNEUMONIA, UNSPECIFIED ORGANISM Qualifiers: Pneumonia type: due to unspecified organism Laterality: left Lung location: lower lobe of lung Qualified Code(s): J18.1 - Lobar pneumonia, unspecified organism (3) Sepsis Code(s): A41.9 - SEPSIS, UNSPECIFIED ORGANISM Qualifiers: Sepsis type: sepsis due to unspecified organism Qualified Code(s): A41.9 - Sepsis, unspecified organism (4) UTI (urinary tract infection) Code(s): N39.0 - URINARY TRACT INFECTION, SITE NOT SPECIFIED Qualifiers: Urinary tract infection type: acute cystitis Hematuria presence: without hematuria Qualified Code(s): N30.00 - Acute cystitis without hematuria Assessment/Plan Microbiology 10/02/17 08:40 Urine For Antigen Detection Legionella Antigen - Final 10/02/17 08:40 Urine For Antigen Detection Streptococcus pneumoniae Antigen (M - Final 10/02/17 00:15 Nasopharyngeal Swab Influenza Types A,B Antigen ([facility]) - Final 10/02/17 00:15 Nasopharyngeal Swab - Final 10/02/17 00:15 Nasopharyngeal Swab Respiratory Virus (PCR) - Preliminary 10/01/17 19:50 Blood - Peripheral Venous Blood Culture - Preliminary NO GROWTH OBTAINED AFTER 24 HOURS, INCUBATION TO CONTINUE FOR 4 DAYS. 10/01/17 19:50 Blood - Peripheral Venous Blood Culture - Preliminary NO GROWTH OBTAINED AFTER 24 HOURS, INCUBATION TO CONTINUE FOR 4 DAYS. Laboratory Tests 10/01/17 10/02/17 10/02/17 19:30 09:00 09:00 WBC 34.4 H* Hgb Hct Plt Count ABG pH ABG pCO2 at Pt Temp ABG pO2 at Pt Temp Oxygen Flow Rate Creat Clearance w eGFR Lactic Acid 3.9 H* Troponin I 0.11 H 10/02/17 10/02/17 10/03/17 12:36 19:10 05:22 WBC 24.4 H Hgb 12.1 Hct 38.1 Plt Count 333 ABG pH 7.37 ABG pCO2 at Pt Temp 41.7 D ABG pO2 at Pt Temp 91.4 D Oxygen Flow Rate 50% Creat Clearance w eGFR Lactic Acid 2.4 H* Troponin I 10/03/17 10/03/17 05:22 05:22 WBC Hgb Hct Plt Count ABG pH ABG pCO2 at Pt Temp ABG pO2 at Pt Temp Oxygen Flow Rate Creat Clearance w eGFR 30.49 Lactic Acid Pending Troponin I Assessment Sepsis syndrome Pneumonia UTI Infected wound Plan Continue current antibiotics Issue of intubation discussed with family Cultures urine pending Blood negative Toni [facility]
[2017-10-03] MEDS: NYSTATIN POWDER 100,000 UNITS/GM - 15 GM TOPICAL POWDER TP SCH (09:45)
[2017-10-03] MEDS: COLLAGENASE CLOSTRIDIUM HIST. 30 GRAMS TUBE TP SCH (09:45)
[2017-10-03] MEDS: MUPIROCIN 2% TOPICAL OINTMENT FOR DECOLONIZATION NS SCH ×2 (09:46→22:14)
--- NOTE | 2017-10-03 11:45 | PN ---
Teaching Attending Note Name of Resident: Bryson James ATTENDING PHYSICIAN STATEMENT I saw and evaluated the patient. I reviewed the resident's note and discussed the case with the resident. I agree with the resident's findings and plan as documented. SUBJECTIVE: Patient seen and examined in the ICU. Lethargic on NIPPV. 50% FiO2. No pressors. Intake & Output 09/30/17 10/01/17 10/02/17 10/03/17 23:59 23:59 23:59 23:59 Intake Total 1250 470 Output Total 250 300 Balance 1000 170 Weight 140 lb 136 lb 7.458 oz 139 lb Last Vital Signs Temp Pulse Resp BP Pulse Ox 98.0 F 97 H 37 H 96/49 99 10/03/17 06:00 10/03/17 09:09 10/03/17 08:00 10/03/17 08:00 10/03/17 09:09 Active Medications Chlorhexidine Gluconate (Hibiclens For Decolonization -) 1 applic TP HS [facility] Last Admin: 10/02/17 22:27 Dose: 1 applic Collagenase (Santyl -) 1 applic TP DAILY [facility] Last Admin: 10/03/17 09:45 Dose: 1 applic Heparin Sodium (Porcine) (Heparin -) 5,000 unit SQ TID [facility]EVIN Last Admin: 10/03/17 06:45 Dose: 5,000 unit Sodium Chloride (Normal Saline -) 1,000 mls @ 60 mls/hr IV ASDIR [facility] Last Admin: 10/03/17 01:00 Dose: 60 mls/hr Vancomycin HCl 1,000 mg/ (Dextrose) 250 mls @ 166.667 mls/hr IVPB Q24H [facility] Last Admin: 10/02/17 20:34 Dose: 166.667 mls/hr Piperacillin Sod/Tazobactam (Sod 3.375 gm/ Dextrose) 50 mls @ 100 mls/hr IVPB Q8H-IV [facility] Last Admin: 10/03/17 09:39 Dose: 100 mls/hr Mupirocin (Bactroban Ointment (For Decolonization) -) 1 applic NS BID [facility] Stop: 10/07/17 09:59 Last Admin: 10/03/17 09:46 Dose: 1 applic Nystatin (Nystop Powder -) 1 applic TP DAILY [facility] Last Admin: 10/03/17 09:45 Dose: 1 applic GENERAL: Lethargic on NIPPV. HEAD: Normal with no signs of trauma. EYES: Sclera anicteric EARS, NOSE, THROAT: Dry mucous membranes. NECK: Normal range of motion, supple without lymphadenopathy, JVD, or masses. LUNGS: Tachypneic, on NIPPV HEART: Tachyardia. ABDOMEN: Soft, nontender, not distended, normoactive bowel sounds, no guarding, no rebound, no masses. No hepatomegaly or splenomegaly. MUSCULOSKELETAL: Normal range of motion at all joints. No bony deformities or tenderness. No CVA tenderness. UPPER EXTREMITIES: 2+ pulses, warm. No peripheral edema. LOWER EXTREMITIES: 2+ pulses, warm. No calf tenderness. No peripheral edema. NEUROLOGICAL: Lethargic PSYCHIATRIC: Lethargic SKIN: Warm, dry, decubitus. Laboratory Results - last 24 hr 10/02/17 10/02/17 10/02/17 10:00 12:36 15:00 WBC RBC Hgb Hct MCV MCH MCHC RDW Plt Count MPV Total Counted 100 Neutrophils % Neutrophils % (Manual) 85.0 H Band Neutrophils % 1.0 Lymphocytes % Lymphocytes % (Manual) 9.0 Monocytes % Monocytes % (Manual) 5 Eosinophils % Basophils % Platelet Estimate Adequate Puncture Site Left radial ABG pH 7.37 ABG pCO2 at Pt Temp 41.7 D ABG pO2 at Pt Temp 91.4 D ABG HCO3 23.4 ABG O2 Sat (Measured) 96.9 ABG O2 Content 18.1 ABG Base Excess -1.4 Jhon Test Positive O2 Delivery Device Bipap Oxygen Flow Rate 50% Vent Mode St Vent Rate 14 Mechanical Rate Y PEEP 0.0 Pressure Support Vent 12/6 Sodium Potassium Chloride Carbon Dioxide Anion Gap BUN Creatinine Creat Clearance w eGFR Random Glucose Lactic Acid 2.4 H* Calcium Phosphorus Magnesium Total Bilirubin AST ALT Alkaline Phosphatase Total Protein Albumin 10/02/17 10/03/17 10/03/17 19:10 05:22 05:22 WBC 24.4 H RBC 4.58 Hgb 12.1 Hct 38.1 MCV 83.2 MCH 26.4 MCHC 31.7 L RDW 15.7 H Plt Count 333 MPV 10.1 Total Counted Neutrophils % 90.0 H Neutrophils % (Manual) Band Neutrophils % Lymphocytes % 5.4 L Lymphocytes % (Manual) Monocytes % 4.5 Monocytes % (Manual) Eosinophils % 0.0 Basophils % 0.1 Platelet Estimate Puncture Site ABG pH ABG pCO2 at Pt Temp ABG pO2 at Pt Temp ABG HCO3 ABG O2 Sat (Measured) ABG O2 Content ABG Base Excess Jhon Test O2 Delivery Device Oxygen Flow Rate Vent Mode Vent Rate Mechanical Rate PEEP Pressure Support Vent Sodium 145 Potassium 4.0 Chloride 109 H Carbon Dioxide 24 Anion Gap 12 BUN 50 H D Creatinine 1.6 H Creat Clearance w eGFR 30.49 Random Glucose 121 H Lactic Acid 2.4 H* Calcium 8.3 L Phosphorus 3.6 D Magnesium 2.1 Total Bilirubin 0.6 D AST 17 D ALT 25 Alkaline Phosphatase 63 Total Protein 6.3 L Albumin 2.3 L 10/03/17 05:22 WBC RBC Hgb Hct MCV MCH MCHC RDW Plt Count MPV Total Counted Neutrophils % Neutrophils % (Manual) Band Neutrophils % Lymphocytes % Lymphocytes % (Manual) Monocytes % Monocytes % (Manual) Eosinophils % Basophils % Platelet Estimate Puncture Site ABG pH ABG pCO2 at Pt Temp ABG pO2 at Pt Temp ABG HCO3 ABG O2 Sat (Measured) ABG O2 Content ABG Base Excess Jhon Test O2 Delivery Device Oxygen Flow Rate Vent Mode Vent Rate Mechanical Rate PEEP Pressure Support Vent Sodium Potassium Chloride Carbon Dioxide Anion Gap BUN Creatinine Creat Clearance w eGFR Random Glucose Lactic Acid 2.0 Calcium Phosphorus Magnesium Total Bilirubin AST ALT Alkaline Phosphatase Total Protein Albumin IMP: Sepsis Lactic acidosis UTI Suspected PNA (?) Aspiration Stage III Decubitus Ulcer Leukocytosis Advanced Dementia (+) troponin PLAN: Broad spectrum ABX per ID Aspiration precautions Follow cultures IVF Local wound care LEA ECHO Aspiration precautions 50% VM Cardiac Telemetry monitoring Dr Lovett Critical care time spent in reviewing chart, evaluating patient and formulating plan - 36 minutes.
[2017-10-03] MEDS ORDERED: DEXTROSE 5%-0.45% SALINE 1,000 ML IV SCH (12:00)
--- NOTE | 2017-10-03 14:12 | PN ---
Progress Note, Physician History of Present Illness: HPI: Briefly Ms Cardoza is an 86 year old woman with pmhx of dementia, aspiration pna, decubitus ulcer who presented to ED today via EMS for < 24Hr hrs of shortness of breath. She is a resident of [facility] and came in with her son. She in unable to provide hx. She is frail appearing and apparently has been in declining health. EMS felt she was in heart failure and she received 2 SL nitro prior to arrival in ED. In ED pt was febrile to 100, tachy w/HR 125, dyspneic with RR in high 20s, BP 76/56. She had significant wob and acute hypercapneic resp failure (7.25/54), started on Bilevel NIV. Labs otherwise notable for wbc 30K 10% bandemia, lactate 8, Cr 1.4 unk baseline. UA w / pyuria WBC 600+, +LE/N. CXR revealed perihilar congestion and possible RLL infiltrate vs atelectesis. EKG with some lateral ST changes, trop was 0.09, BNP 1200. She was started on Vancomycin, LVQ and Pip/Geovany for UTI and HAP, was given some gentle fluid resuscitation. Repeat abg pending. - Current Medication List Current Medications: Active Medications Chlorhexidine Gluconate (Hibiclens For Decolonization -) 1 applic TP HS [facility] Last Admin: 10/02/17 22:27 Dose: 1 applic Collagenase (Santyl -) 1 applic TP DAILY [facility] Last Admin: 10/03/17 09:45 Dose: 1 applic Heparin Sodium (Porcine) (Heparin -) 5,000 unit SQ TID [facility] Last Admin: 10/03/17 06:45 Dose: 5,000 unit Vancomycin HCl 1,000 mg/ (Dextrose) 250 mls @ 166.667 mls/hr IVPB Q24H [facility] Last Admin: 10/02/17 20:34 Dose: 166.667 mls/hr Piperacillin Sod/Tazobactam (Sod 3.375 gm/ Dextrose) 50 mls @ 100 mls/hr IVPB Q8H-IV [facility] Last Admin: 10/03/17 09:39 Dose: 100 mls/hr Dextrose/Sodium Chloride (D5-1/2ns -) 1,000 mls @ 60 mls/hr IV ASDIR [facility] Last Admin: 10/03/17 12:34 Dose: 60 mls/hr Mupirocin (Bactroban Ointment (For Decolonization) -) 1 applic NS BID [facility] Stop: 10/07/17 09:59 Last Admin: 10/03/17 09:46 Dose: 1 applic Nystatin (Nystop Powder -) 1 applic TP DAILY [facility] Last Admin: 10/03/17 09:45 Dose: 1 applic - Objective Vital Signs: Vital Signs Temperature 98.3 F 10/03/17 10:00 Pulse Rate 91 H 10/03/17 14:00 Respiratory Rate 35 H 10/03/17 14:00 Blood Pressure 100/58 10/03/17 14:00 O2 Sat by Pulse Oximetry (%) 99 10/03/17 09:09 Eyes: Yes: WNL, Conjunctiva Clear, EOM Intact HENT: Yes: WNL, Atraumatic, Normocephalic Neck: Yes: WNL, Supple, Trachea Midline Cardiovascular: Yes: WNL, Regular Rate and Rhythm Respiratory: Yes: WNL, Regular, CTA Bilaterally Gastrointestinal: Yes: WNL, Normal Bowel Sounds Genitourinary: Yes: WNL Musculoskeletal: Yes: WNL Extremities: Yes: WNL Edema: No Integumentary: Yes: WNL Neurological: Yes: WNL, Alert, Oriented ...Motor Strength: WNL Psychiatric: Yes: WNL Labs: CBC, BMP 10/03/17 05:22 10/03/17 05:22 INR, PTT INR 1.05 (0.82-1.09) 10/01/17 19:30 Problem List - Problems (1) DVT prophylaxis Code(s): WDS2642 - (2) Dementia Code(s): F03.90 - UNSPECIFIED DEMENTIA WITHOUT BEHAVIORAL DISTURBANCE Qualifiers: Qualified Code(s): G30.9 - Alzheimer's disease, unspecified; F02.80 - Dementia in other diseases classified elsewhere without behavioral disturbance; F02.80 - Dementia in other diseases classified elsewhere without behavioral disturbance; F02.80 - Dementia in other diseases classified elsewhere without behavioral disturbance (3) Elevated troponin I level Code(s): R74.8 - ABNORMAL LEVELS OF OTHER SERUM ENZYMES (4) Infected pressure ulcer Code(s): L89.90 - PRESSURE ULCER OF UNSPECIFIED SITE, UNSPECIFIED STAGE; L08.9 - LOCAL INFECTION OF THE SKIN AND SUBCUTANEOUS TISSUE, UNSP (5) Pneumonia Code(s): J18.9 - PNEUMONIA, UNSPECIFIED ORGANISM Qualifiers: Qualified Code(s): J18.1 - Lobar pneumonia, unspecified organism (6) Sepsis Code(s): A41.9 - SEPSIS, UNSPECIFIED ORGANISM Qualifiers: Qualified Code(s): A41.9 - Sepsis, unspecified organism (7) UTI (urinary tract infection) Code(s): N39.0 - URINARY TRACT INFECTION, SITE NOT SPECIFIED Qualifiers: Qualified Code(s): N30.00 - Acute cystitis without hematuria Assessment/Plan imp; Acute Hypercapneic Respiratory Failure UTI Infected Sacral Decubitus Ulcer Sepsis Lactic Acidosis Acute Kidney Injury Dementia elevated bnp and tni's - most likely due to sepsis Plan abx icu support echo will f/u cc time 35 min
--- NOTE | 2017-10-03 14:16 | PN ---
Physical Exam: SUBJECTIVE: Patient seen and examined at bedside. No acute events overnight. Pt in bed breathing on bipap. In some respiratory distress. Pt is nonverbal. OBJECTIVE: Vital Signs Period Temp Pulse Resp BP Sys/Vega Pulse Ox Last 24 Hr 97.6 F-99.1 F 88-100 29-41 81-127/49-86 93-99 GENERAL: Awake, alert, and fully oriented, with tachypnea in respiratory distress. HEAD: Normal with no signs of trauma. EYES: sclera anicteric, conjunctiva clear. No lid lag. NECK: Normal range of motion, supple without lymphadenopathy, JVD, or masses. LUNGS: Noisy chest 2/2 NIPPV. tachypnea. Breath sounds equal, No wheezes, and no crackles appreciated. HEART: distant heart sounds. Regular rate and rhythm, normal S1 and S2 without murmur, rub or gallop. ABDOMEN: Soft, nontender, not distended, normoactive bowel sounds, no guarding, no rebound, no masses. No hepatomegaly or splenomegaly. LOWER EXTREMITIES: 2+ pulses, warm, well-perfused. No calf tenderness. No peripheral edema. NEUROLOGICAL: nonverbal PSYCHIATRIC: nonverbal SKIN: Warm, dry, normal turgor, no rashes or lesions noted. Laboratory Results - last 24 hr 10/02/17 10/02/17 10/02/17 10:00 15:00 19:10 WBC RBC Hgb Hct MCV MCH MCHC RDW Plt Count MPV Total Counted 100 Neutrophils % Neutrophils % (Manual) 85.0 H Band Neutrophils % 1.0 Lymphocytes % Lymphocytes % (Manual) 9.0 Monocytes % Monocytes % (Manual) 5 Eosinophils % Basophils % Platelet Estimate Adequate Sodium Potassium Chloride Carbon Dioxide Anion Gap BUN Creatinine Creat Clearance w eGFR Random Glucose Lactic Acid 2.4 H* 2.4 H* Calcium Phosphorus Magnesium Total Bilirubin AST ALT Alkaline Phosphatase Total Protein Albumin 10/03/17 10/03/17 10/03/17 05:22 05:22 05:22 WBC 24.4 H RBC 4.58 Hgb 12.1 Hct 38.1 MCV 83.2 MCH 26.4 MCHC 31.7 L RDW 15.7 H Plt Count 333 MPV 10.1 Total Counted Neutrophils % 90.0 H Neutrophils % (Manual) Band Neutrophils % Lymphocytes % 5.4 L Lymphocytes % (Manual) Monocytes % 4.5 Monocytes % (Manual) Eosinophils % 0.0 Basophils % 0.1 Platelet Estimate Sodium 145 Potassium 4.0 Chloride 109 H Carbon Dioxide 24 Anion Gap 12 BUN 50 H D Creatinine 1.6 H Creat Clearance w eGFR 30.49 Random Glucose 121 H Lactic Acid 2.0 Calcium 8.3 L Phosphorus 3.6 D Magnesium 2.1 Total Bilirubin 0.6 D AST 17 D ALT 25 Alkaline Phosphatase 63 Total Protein 6.3 L Albumin 2.3 L Active Medications Generic Name Dose Route Start Last Admin Trade Name Braulio PRN Reason Stop Dose Admin Chlorhexidine Gluconate 1 applic 10/02/17 22:00 10/02/17 22:27 Hibiclens For Decolonization - TP 1 applic HS KEVIN Administration Collagenase 1 applic 10/02/17 15:45 10/03/17 09:45 Santyl - TP 1 applic DAILY [facility] Administration Heparin Sodium (Porcine) 5,000 unit 10/02/17 06:00 10/03/17 06:45 Heparin - SQ 5,000 unit TID KEVIN Administration Vancomycin HCl 1,000 mg/ 250 mls @ 166.667 mls/hr 10/02/17 21:00 10/02/17 20: 34 Dextrose IVPB 166.667 mls/hr Q24H KEVIN Administration Piperacillin Sod/Tazobactam 50 mls @ 100 mls/hr 10/02/17 10:00 10/03/17 09:39 Sod 3.375 gm/ Dextrose IVPB 100 mls/hr Q8H-IV KEVIN Administration Dextrose/Sodium Chloride 1,000 mls @ 60 mls/hr 10/03/17 12:00 10/03/17 12:34 D5-1/2ns - IV 60 mls/hr ASDIR [facility]EVIN Administration Mupirocin 1 applic 10/02/17 10:00 10/03/17 09:46 Bactroban Ointment (For Decolonization) - NS 10/07/17 09:59 1 applic BID EK[facility]IN Administration Nystatin 1 applic 10/02/17 09:00 10/03/17 09:45 Nystop Powder - TP 1 applic DAILY [facility] Administration ASSESSMENT/PLAN: Pt is an 86F w/ PMH Dementia, Aspiration Pneumonia, stage III Decubitus Ulcer on the back. Pt is admitted to ICU with sepsis. #Sepsis -In ED: WBC 33.4 with Bandemia, LA 7.9, P 125, R 26, BP 76/56, Spo2 92~88%, T- 100.7 -LA resolved -WBC 24.4 today -source could be decub ulcer vs UTI vs possible PNA -[place] Cx pending -NS -Vanc/Zosyn -ID on board #Respiratory distress -Pt with tachypnea in the 40's on NIPPV -attempted to place pt on venti mask today. Pt did not tolerate and desatted. -resuming NIPPV #Decubitous ulcer -Stage III -surg consult for debriedment -wound care #Troponinemia -pt produced trop peak of 0.13 -Cardiology on board -likely 2/2 sepsis #LEA -[employer] Manager 1.5-> 1.4-> 1.6 - possible at baseline. Unknown true baseline -c/w fluid -repeat chem #UTI -pt on Abx -ID on board #Dementia -Pt nonverbal #FEN -NS -Lytes wnl -NPO for now #PPx -Hep SubQ #Palliative care consult appreciated. Palliative team to initiate Goals of Care discussion with family. Dispo: transferred to tele Bryson James MD PGY-1, ICU case discussed with attending Visit type - Emergency Visit Emergency Visit: No - New Patient This patient is new to me today: No - Critical Care Critical Care patient: No - Discharge Referral Referred to [facility] Med P.C.: No
--- NOTE | 2017-10-03 15:18 | PN ---
Progress Note (short form) - Note Progress Note: Patient seen and examined in MICU. On BiPaP. In respiratory distress. Discussed with son Junito Cardoza present by the bedside. Recent Travel: None PAST MEDICAL HISTORY: Dementia Aspirated Pneumonia Decubitus Ulcer PAST SURGICAL HISTORY: Unknown Social History: Smoking: Unknown Alcohol: None Drugs: None Resides in a SNF Family History: Non-contributory Allergies No Known Allergies Allergy (Verified 10/01/17 20:02) HOME MEDICATIONS: Home Medications Medication Instructions Recorded Acetaminophen 325 mg PO DAILY 10/01/17 Aspirin [ASA -] 81 mg PO DAILY 10/01/17 Vitamin B Comp W-C [Nephro-Milly -] 1 tablet PO DAILY 10/01/17 Vitamin B Comp W-C [Nephro-Milly -] 1 tablet PO DAILY 10/01/17 REVIEW OF SYSTEMS Unable to obtain- Dementia hx CONSTITUTIONAL: Absent: fever, chills, diaphoresis, generalized weakness, malaise, loss of appetite, weight change HEENT: Absent: rhinorrhea, nasal congestion, throat pain, throat swelling, difficulty swallowing, mouth swelling, ear pain, eye pain, visual changes CARDIOVASCULAR: Absent: chest pain, syncope, palpitations, irregular heart rate, lightheadedness , peripheral edema RESPIRATORY: Absent: cough, shortness of breath, dyspnea with exertion, orthopnea, wheezing, stridor, hemoptysis GASTROINTESTINAL: Absent: abdominal pain, abdominal distension, nausea, vomiting, diarrhea, constipation, melena, hematochezia GENITOURINARY: Absent: dysuria, frequency, urgency, hesitancy, hematuria, flank pain, genital pain MUSCULOSKELETAL: Absent: myalgia, arthralgia, joint swelling, back pain, neck pain SKIN: Absent: rash, itching, pallor HEMATOLOGIC/IMMUNOLOGIC: Absent: easy bleeding, easy bruising, lymphadenopathy, frequent infections ENDOCRINE: Absent: unexplained weight gain, unexplained weight loss, heat intolerance, cold intolerance NEUROLOGIC: Absent: headache, focal weakness or paresthesias, dizziness, unsteady gait, seizure, mental status changes, bladder or bowel incontinence PSYCHIATRIC: Absent: anxiety, depression, suicidal or homicidal ideation, hallucinations. PHYSICAL EXAMINATION Vital Signs Period Temp Pulse Resp BP Sys/Vega Pulse Ox Last 24 Hr 97.6 F-99.1 F 88-100 29-41 81-127/49-86 93-99 GENERAL: Awake, alert to baseline, in no acute distress. HEAD: Normal with no signs of trauma. EYES: Pupils equal, round and reactive to light, sclera anicteric, conjunctiva clear. No lid lag. EARS, NOSE, THROAT: Ears normal, nares patent, oropharynx clear without exudates. Dry mucous membranes. NECK: Normal range of motion, supple without lymphadenopathy, JVD, or masses. LUNGS: On Bipap, +coarse crackles scattered diffusely, diminished RLL HEART: Regular rate and rhythm, normal S1 and S2 without murmur, rub or gallop. ABDOMEN: Soft, nontender, not distended, normoactive bowel sounds, no guarding, no rebound, no masses. No hepatomegaly or splenomegaly. MUSCULOSKELETAL: Normal range of motion at all joints. No bony deformities or tenderness. No CVA tenderness. UPPER EXTREMITIES: 2+ pulses, warm, well-perfused. No cyanosis. No clubbing. No peripheral edema. LOWER EXTREMITIES: 2+ pulses, warm, well-perfused. No calf tenderness. No peripheral edema. NEUROLOGICAL: Cranial nerves II-XII intact. Non-verbal. Gait not observed. PSYCHIATRIC: Restless, at baseline SKIN: Warm, dry, normal turgor, no rashes. Stage 4 pressure ulcer 4cm to R- scapula with eschar, serous sanguineous drainage lesions noted, normal capillary refill. CBC, BMP 10/03/17 05:22 10/03/17 05:22 Microbiology 10/01/17 22:00 Urine - Urine - Catheterized Urine Culture - Final NO GROWTH OBTAINED 10/01/17 19:50 Blood - Peripheral Venous Blood Culture - Preliminary NO GROWTH OBTAINED AFTER 24 HOURS, INCUBATION TO CONTINUE FOR 4 DAYS. 10/01/17 19:50 Blood - Peripheral Venous Blood Culture - Preliminary NO GROWTH OBTAINED AFTER 24 HOURS, INCUBATION TO CONTINUE FOR 4 DAYS. 10/02/17 00:15 Nasopharyngeal Swab Respiratory Virus (PCR) - Preliminary 10/02/17 08:40 Urine For Antigen Detection Legionella Antigen - Final 10/02/17 08:40 Urine For Antigen Detection Streptococcus pneumoniae Antigen (M - Final ASSESSMENT/PLAN: This is a 86 y/o woman with a PMHx of Dementia, Aspiration Pneumonia, Decubitus. Admitted for Severe Sepsis secondary to UTI, Pneumonia. Problem List - Problem (1) Sepsis Assessment/Plan: - Severe Sepsis likely secondary to UTI - UA- +Nitrates, 600+ WBC - Blood Cultures-Prelim Negative - Urine Culture-No growth - Chest Xray reviewed - ID follow up appreciated. - Continue Zosyn and Vancomcyin for broad spectrum coverage- pending BC results - Tylenol prn - O2- BIPAP - Initial ABG- Acute Hypercapnia- Resp Failure - Continue cardiac monitoring - Repeat CBCD, BMP in am - Trend lactic acid - Monitor urine output Code(s): A41.9 - SEPSIS, UNSPECIFIED ORGANISM Qualifiers: Sepsis type: sepsis due to unspecified organism Qualified Code(s): A41.9 - Sepsis, unspecified organism (2) Pneumonia Assessment/Plan: - Chest Xray- Bibasilar pulmonary and pleural changes. - ?? Aspiration. - Blood Cultures-prelim negative - Continue Vancomycin/Zosyn - ID and Pulm follow up appreciated. - On Bipap for hypercapnia, resp failure - Monitor CBC - Monitor vitals Code(s): J18.9 - PNEUMONIA, UNSPECIFIED ORGANISM Qualifiers: Pneumonia type: due to unspecified organism Laterality: left Lung location: lower lobe of lung Qualified Code(s): J18.1 - Lobar pneumonia, unspecified organism (3) UTI (urinary tract infection) Assessment/Plan: - Urine Cultures-negative - Continue Zosyn - Monitor vitals Code(s): N39.0 - URINARY TRACT INFECTION, SITE NOT SPECIFIED Qualifiers: Urinary tract infection type: acute cystitis Hematuria presence: without hematuria Qualified Code(s): N30.00 - Acute cystitis without hematuria (4) Elevated troponin I level Assessment/Plan: - Likely secondary to Sepsis - Continue cardiac monitoring - Serial Enzymes - EKG- lateral ST changes - Cardiology Consulted - Asa Code(s): R74.8 - ABNORMAL LEVELS OF OTHER SERUM ENZYMES (5) Dementia Assessment/Plan: - Continue to monitor and treat accordingly - Fall Precautions Code(s): F03.90 - UNSPECIFIED DEMENTIA WITHOUT BEHAVIORAL DISTURBANCE Qualifiers: Dementia type: Alzheimer's disease Alzheimer's disease onset: unspecified onset Dementia behavioral disturbance: without behavioral disturbance Qualified Code(s): G30.9 - Alzheimer's disease, unspecified; F02.80 - Dementia in other diseases classified elsewhere without behavioral disturbance; F02.80 - Dementia in other diseases classified elsewhere without behavioral disturbance; F02.80 - Dementia in other diseases classified elsewhere without behavioral disturbance (6) DVT prophylaxis Assessment/Plan: - SCDs - Heparin SQ Code(s): [id number] - More than 45 minutes spent taking care of the patient. Discussed in detail with the son and family present by the bedside.
[2017-10-03] MEDS: DEXTROSE 5%-0.45% SALINE 1,000 ML IV SCH (22:13)
[2017-10-03] MEDS: VANCOMYCIN 1,000 MG in DEXTROSE 5%-WATER - 250 ML IVPB SCH (22:13)
[2017-10-03] MEDS: CHLORHEXIDINE GLUCONATE 4% CLEANSER FOR DECOLONIZATION TP SCH (22:15)
[2017-10-04] MEDS: PIPERACILLIN/TAZOB 3.375 GM 3.375 GM in DEXTROSE 5%-WATER - 50 ML IVPB SCH ×3 (01:25→19:42)
[2017-10-04] MEDS: HEPARIN NA (PORCINE) 5,000 UNITS/ML 1ML VIAL SQ SCH ×3 (05:49→22:19)
[2017-10-04 07:38] LABS: MCH 26.4 pg (25.7-33.7); MCHC 31.7 g/dl (32.0-36.0); MEAN CELL VOLUME 83.2 fl (80-96); MEAN PLT VOLUME 9.8 fl (7.5-11.1); PLATELET COUNT 333 K/MM3 (134-434); RDW 15.9 % (11.6-15.6)
[2017-10-04 08:13] LABS: ALBUMIN 1.9 g/dl (3.4-5.0); ANION GAP 8 (8-16); CALCIUM 8.1 mg/dL (8.5-10.1); CO2 28 mmol/L (21-32); GLUCOSE,RANDOM 123 mg/dL (74-106)
[2017-10-04 08:18] LABS: ALK PHOS 63 U/L (45-117); BILIRUBIN,TOTAL 0.4 mg/dL (0.2-1.0); CREATININE 1.2 mg/dL (0.55-1.02); SGOT/AST 11 U/L (15-37); SGPT/ALT 19 U/L (12-78); TOT PROT 5.5 g/dl (6.4-8.2)
[2017-10-04 09:14] LABS: PLATELET ESTIMATE ADEQUATE; TOTAL CELLS COUNTED 100
[2017-10-04] MEDS: MUPIROCIN 2% TOPICAL OINTMENT FOR DECOLONIZATION NS SCH ×2 (10:24→21:01)
[2017-10-04] MEDS: NYSTATIN POWDER 100,000 UNITS/GM - 15 GM TOPICAL POWDER TP SCH (10:34)
--- NOTE | 2017-10-04 11:41 | PN ---
Progress Note (short form) - Note Progress Note: PULMONARY CHART REVIEWED/SPOKE WITH NURSE FAMILY PRESENT ON BIPAP REQUIRING 60% FIO2 PALE/AFEBRILE SCATTERED RHONCHI S1S2 BS+ NO EDEMA LABS/MEDS/NOTES/IMAGES REVIEWED Sepsis Lactic acidosis UTI Suspected PNA Aspiration Stage III Decubitus Ulcer Leukocytosis Advanced Dementia (+) troponin Broad spectrum ABX per ID Aspiration precautions Follow cultures IVF Local wound care Aspiration precautions NIPPV DNR/DNI R WAYLON SOLITARIO
[2017-10-04] MEDS: COLLAGENASE CLOSTRIDIUM HIST. 30 GRAMS TUBE TP SCH (13:01)
--- NOTE | 2017-10-04 14:15 | PN ---
Progress Note (short form) - Note Progress Note: family at bedside remains tachypneic on bipap oxygen demands are less Vital Signs Period Temp Pulse Resp BP Sys/Vega Pulse Ox Last 24 Hr 97.8 F-99.7 F 89-93 29-38 109-121/48-66 93-99 cor-rrr lungs scattered rhonchi back abscess with minimal drainage and erythema abd soft,nt ext no edema CBC, BMP 10/04/17 05:25 10/04/17 05:25 Current Medications Chlorhexidine Gluconate (Hibiclens For Decolonization -) 1 applic TP HS KEVIN Last Admin: 10/03/17 22:15 Dose: Not Given Collagenase (Santyl -) 1 applic TP DAILY [facility] Last Admin: 10/04/17 13:01 Dose: 1 applic Heparin Sodium (Porcine) (Heparin -) 5,000 unit SQ TID [facility] Last Admin: 10/04/17 05:49 Dose: 5,000 unit Dextrose/Sodium Chloride (D5-1/2ns -) 1,000 mls @ 60 mls/hr IV ASDIR KEVIN Last Admin: 10/03/17 22:13 Dose: Not Given Piperacillin Sod/Tazobactam (Sod 3.375 gm/ Dextrose) 50 mls @ 100 mls/hr IVPB Q8H-IV [facility] Last Admin: 10/04/17 10:33 Dose: 100 mls/hr Vancomycin HCl 1,000 mg/ (Dextrose) 250 mls @ 166.667 mls/hr IVPB Q24H [facility] Last Admin: 10/03/17 22:13 Dose: 166.667 mls/hr Mupirocin (Bactroban Ointment (For Decolonization) -) 1 applic NS BID [facility] Stop: 10/07/17 09:59 Last Admin: 10/04/17 10:24 Dose: Not Given Nystatin (Nystop Powder -) 1 applic TP DAILY [facility] Last Admin: 10/04/17 10:34 Dose: 1 applic imp/reccd sepsis uti infected necrotic foulsmelling ulcer on upper back pneumonia continue antibiotics check vancomycin trough before 4th dose d/w family at bedside Problem List - Problems (1) Sepsis Code(s): A41.9 - SEPSIS, UNSPECIFIED ORGANISM Qualifiers: Sepsis type: sepsis due to unspecified organism Qualified Code(s): A41.9 - Sepsis, unspecified organism (2) UTI (urinary tract infection) Code(s): N39.0 - URINARY TRACT INFECTION, SITE NOT SPECIFIED Qualifiers: Urinary tract infection type: acute cystitis Hematuria presence: without hematuria Qualified Code(s): N30.00 - Acute cystitis without hematuria (3) Infected pressure ulcer Code(s): L89.90 - PRESSURE ULCER OF UNSPECIFIED SITE, UNSPECIFIED STAGE; L08.9 - LOCAL INFECTION OF THE SKIN AND SUBCUTANEOUS TISSUE, UNSP (4) Elevated troponin I level Code(s): R74.8 - ABNORMAL LEVELS OF OTHER SERUM ENZYMES (5) Dementia Code(s): F03.90 - UNSPECIFIED DEMENTIA WITHOUT BEHAVIORAL DISTURBANCE Qualifiers: Dementia type: Alzheimer's disease Alzheimer's disease onset: unspecified onset Dementia behavioral disturbance: without behavioral disturbance Qualified Code(s): G30.9 - Alzheimer's disease, unspecified; F02.80 - Dementia in other diseases classified elsewhere without behavioral disturbance; F02.80 - Dementia in other diseases classified elsewhere without behavioral disturbance; F02.80 - Dementia in other diseases classified elsewhere without behavioral disturbance
--- NOTE | 2017-10-04 14:40 | PN ---
Progress Note, Physician History of Present Illness: HPI: Briefly Ms Cardoza is an 86 year old woman with pmhx of dementia, aspiration pna, decubitus ulcer who presented to ED today via EMS for < 24Hr hrs of shortness of breath. She is a resident of [facility] and came in with her son. She in unable to provide hx. She is frail appearing and apparently has been in declining health. EMS felt she was in heart failure and she received 2 SL nitro prior to arrival in ED. In ED pt was febrile to 100, tachy w/HR 125, dyspneic with RR in high 20s, BP 76/56. She had significant wob and acute hypercapneic resp failure (7.25/54), started on Bilevel NIV. Labs otherwise notable for wbc 30K 10% bandemia, lactate 8, Cr 1.4 unk baseline. UA w / pyuria WBC 600+, +LE/N. CXR revealed perihilar congestion and possible RLL infiltrate vs atelectesis. EKG with some lateral ST changes, trop was 0.09, BNP 1200. She was started on Vancomycin, LVQ and Pip/Geovany for UTI and HAP, was given some gentle fluid resuscitation. Repeat abg pending. - Current Medication List Current Medications: Active Medications Chlorhexidine Gluconate (Hibiclens For Decolonization -) 1 applic TP HS [facility] Last Admin: 10/03/17 22:15 Dose: Not Given Collagenase (Santyl -) 1 applic TP DAILY [facility] Last Admin: 10/04/17 13:01 Dose: 1 applic Heparin Sodium (Porcine) (Heparin -) 5,000 unit SQ TID [facility] Last Admin: 10/04/17 05:49 Dose: 5,000 unit Dextrose/Sodium Chloride (D5-1/2ns -) 1,000 mls @ 60 mls/hr IV ASDIR [facility] Last Admin: 10/03/17 22:13 Dose: Not Given Piperacillin Sod/Tazobactam (Sod 3.375 gm/ Dextrose) 50 mls @ 100 mls/hr IVPB Q8H-IV [facility] Last Admin: 10/04/17 10:33 Dose: 100 mls/hr Vancomycin HCl 1,000 mg/ (Dextrose) 250 mls @ 166.667 mls/hr IVPB Q24H [facility] Last Admin: 10/03/17 22:13 Dose: 166.667 mls/hr Mupirocin (Bactroban Ointment (For Decolonization) -) 1 applic NS BID [facility] Stop: 10/07/17 09:59 Last Admin: 10/04/17 10:24 Dose: Not Given Nystatin (Nystop Powder -) 1 applic TP DAILY [facility] Last Admin: 10/04/17 10:34 Dose: 1 applic - Objective Vital Signs: Vital Signs Temperature 99.7 F H 10/04/17 09:00 Pulse Rate 93 H 10/04/17 09:00 Respiratory Rate 32 H 10/04/17 09:00 Blood Pressure 111/59 10/04/17 09:00 O2 Sat by Pulse Oximetry (%) 94 L 10/04/17 14:05 Eyes: Yes: WNL, Conjunctiva Clear, EOM Intact HENT: Yes: WNL, Atraumatic, Normocephalic Neck: Yes: WNL, Supple, Trachea Midline Cardiovascular: Yes: WNL, Regular Rate and Rhythm Respiratory: Yes: WNL, Regular, CTA Bilaterally Gastrointestinal: Yes: WNL, Normal Bowel Sounds Genitourinary: Yes: WNL Musculoskeletal: Yes: WNL Extremities: Yes: WNL Edema: No Integumentary: Yes: WNL Neurological: Yes: Lethargy ...Motor Strength: WNL Psychiatric: Yes: WNL Labs: CBC, BMP 10/04/17 05:25 10/04/17 05:25 INR, PTT INR 1.05 (0.82-1.09) 10/01/17 19:30 Problem List - Problems (1) DVT prophylaxis Code(s): [id number] - (2) Dementia Code(s): F03.90 - UNSPECIFIED DEMENTIA WITHOUT BEHAVIORAL DISTURBANCE Qualifiers: Dementia type: Alzheimer's disease Alzheimer's disease onset: unspecified onset Dementia behavioral disturbance: without behavioral disturbance Qualified Code(s): G30.9 - Alzheimer's disease, unspecified; F02.80 - Dementia in other diseases classified elsewhere without behavioral disturbance; F02.80 - Dementia in other diseases classified elsewhere without behavioral disturbance; F02.80 - Dementia in other diseases classified elsewhere without behavioral disturbance (3) Elevated troponin I level Code(s): R74.8 - ABNORMAL LEVELS OF OTHER SERUM ENZYMES (4) Infected pressure ulcer Code(s): L89.90 - PRESSURE ULCER OF UNSPECIFIED SITE, UNSPECIFIED STAGE; L08.9 - LOCAL INFECTION OF THE SKIN AND SUBCUTANEOUS TISSUE, UNSP (5) Pneumonia Code(s): J18.9 - PNEUMONIA, UNSPECIFIED ORGANISM Qualifiers: Pneumonia type: due to unspecified organism Laterality: left Lung location: lower lobe of lung Qualified Code(s): J18.1 - Lobar pneumonia, unspecified organism (6) Sepsis Code(s): A41.9 - SEPSIS, UNSPECIFIED ORGANISM Qualifiers: Sepsis type: sepsis due to unspecified organism Qualified Code(s): A41.9 - Sepsis, unspecified organism (7) UTI (urinary tract infection) Code(s): N39.0 - URINARY TRACT INFECTION, SITE NOT SPECIFIED Qualifiers: Urinary tract infection type: acute cystitis Hematuria presence: without hematuria Qualified Code(s): N30.00 - Acute cystitis without hematuria Assessment/Plan imp; Acute Hypercapneic Respiratory Failure UTI Infected Sacral Decubitus Ulcer Sepsis Lactic Acidosis Acute Kidney Injury Dementia elevated bnp and tni's - most likely due to sepsis Plan abx cont supportive rx d/c telemetry will f/u
[2017-10-04] MEDS ORDERED: PT OWN MED DRAWER 7, Y5N ONE ×2 (19:36→21:56)
--- NOTE | 2017-10-04 20:43 | PN ---
Progress Note (short form) - Note Progress Note: Patient seen and examined. Remains on BiPaP. Discussed with family present bedside. Recent Travel: None PAST MEDICAL HISTORY: Dementia Aspirated Pneumonia Decubitus Ulcer PAST SURGICAL HISTORY: Unknown Social History: Smoking: Unknown Alcohol: None Drugs: None Resides in a SNF Family History: Non-contributory Allergies No Known Allergies Allergy (Verified 10/01/17 20:02) HOME MEDICATIONS: Home Medications Medication Instructions Recorded Acetaminophen 325 mg PO DAILY 10/01/17 Aspirin [ASA -] 81 mg PO DAILY 10/01/17 Vitamin B Comp W-C [Nephro-Milly -] 1 tablet PO DAILY 10/01/17 Vitamin B Comp W-C [Nephro-Milly -] 1 tablet PO DAILY 10/01/17 REVIEW OF SYSTEMS Unable to obtain- Dementia hx CONSTITUTIONAL: Absent: fever, chills, diaphoresis, generalized weakness, malaise, loss of appetite, weight change HEENT: Absent: rhinorrhea, nasal congestion, throat pain, throat swelling, difficulty swallowing, mouth swelling, ear pain, eye pain, visual changes CARDIOVASCULAR: Absent: chest pain, syncope, palpitations, irregular heart rate, lightheadedness , peripheral edema RESPIRATORY: Absent: cough, shortness of breath, dyspnea with exertion, orthopnea, wheezing, stridor, hemoptysis GASTROINTESTINAL: Absent: abdominal pain, abdominal distension, nausea, vomiting, diarrhea, constipation, melena, hematochezia GENITOURINARY: Absent: dysuria, frequency, urgency, hesitancy, hematuria, flank pain, genital pain MUSCULOSKELETAL: Absent: myalgia, arthralgia, joint swelling, back pain, neck pain SKIN: Absent: rash, itching, pallor HEMATOLOGIC/IMMUNOLOGIC: Absent: easy bleeding, easy bruising, lymphadenopathy, frequent infections ENDOCRINE: Absent: unexplained weight gain, unexplained weight loss, heat intolerance, cold intolerance NEUROLOGIC: Absent: headache, focal weakness or paresthesias, dizziness, unsteady gait, seizure, mental status changes, bladder or bowel incontinence PSYCHIATRIC: Absent: anxiety, depression, suicidal or homicidal ideation, hallucinations. PHYSICAL EXAMINATION Vital Signs Period Temp Pulse Resp BP Sys/Vega Pulse Ox Last 24 Hr 97.8 F-99.7 F 84-93 24-38 109-129/48-67 94-99 GENERAL: Awake, alert to baseline, in no acute distress. HEAD: Normal with no signs of trauma. EYES: Pupils equal, round and reactive to light, sclera anicteric, conjunctiva clear. No lid lag. EARS, NOSE, THROAT: Ears normal, nares patent, oropharynx clear without exudates. Dry mucous membranes. NECK: Normal range of motion, supple without lymphadenopathy, JVD, or masses. LUNGS: On Bipap, +coarse crackles scattered diffusely, diminished RLL HEART: Regular rate and rhythm, normal S1 and S2 without murmur, rub or gallop. ABDOMEN: Soft, nontender, not distended, normoactive bowel sounds, no guarding, no rebound, no masses. No hepatomegaly or splenomegaly. MUSCULOSKELETAL: Normal range of motion at all joints. No bony deformities or tenderness. No CVA tenderness. UPPER EXTREMITIES: 2+ pulses, warm, well-perfused. No cyanosis. No clubbing. No peripheral edema. LOWER EXTREMITIES: 2+ pulses, warm, well-perfused. No calf tenderness. No peripheral edema. NEUROLOGICAL: Cranial nerves II-XII intact. Non-verbal. Gait not observed. PSYCHIATRIC: Restless, at baseline SKIN: Warm, dry, normal turgor, no rashes. Stage 4 pressure ulcer 4cm to R- scapula with eschar, serous sanguineous drainage lesions noted, normal capillary refill. CBC, BMP 10/04/17 05:25 10/04/17 05:25 Microbiology 10/01/17 19:50 Blood - Peripheral Venous Blood Culture - Preliminary NO GROWTH OBTAINED AFTER 72 HOURS, INCUBATION TO CONTINUE FOR 2 DAYS. 10/01/17 19:50 Blood - Peripheral Venous Blood Culture - Preliminary NO GROWTH OBTAINED AFTER 72 HOURS, INCUBATION TO CONTINUE FOR 2 DAYS. 10/02/17 00:15 Nasopharyngeal Swab Respiratory Virus (PCR) - Final ASSESSMENT/PLAN: This is a 86 y/o woman with a PMHx of Dementia, Aspiration Pneumonia, Decubitus. Admitted for Severe Sepsis secondary to UTI, Pneumonia. Problem List - Problem (1) Sepsis Assessment/Plan: - Severe Sepsis likely secondary to UTI - UA- +Nitrates, 600+ WBC - Blood Cultures-Prelim Negative - Urine Culture-No growth - Chest Xray reviewed - ID follow up appreciated. - Continue Zosyn and Vancomcyin for broad spectrum coverage- pending BC results - Tylenol prn - O2- BIPAP - Initial ABG- Acute Hypercapnia- Resp Failure - Continue cardiac monitoring - Repeat CBCD, BMP in am - Trend lactic acid - Monitor urine output Code(s): A41.9 - SEPSIS, UNSPECIFIED ORGANISM Qualifiers: Sepsis type: sepsis due to unspecified organism Qualified Code(s): A41.9 - Sepsis, unspecified organism (2) Pneumonia Assessment/Plan: - Chest Xray- Bibasilar pulmonary and pleural changes. - Blood Cultures-prelim negative - Continue Vancomycin/Zosyn - ID and Pulm follow up appreciated. - On Bipap for hypercapnia, resp failure - Monitor CBC - Monitor vitals Code(s): J18.9 - PNEUMONIA, UNSPECIFIED ORGANISM Qualifiers: Pneumonia type: due to unspecified organism Laterality: left Lung location: lower lobe of lung Qualified Code(s): J18.1 - Lobar pneumonia, unspecified organism (3) UTI (urinary tract infection) Assessment/Plan: - Urine Cultures-negative - Continue Zosyn - Monitor vitals Code(s): N39.0 - URINARY TRACT INFECTION, SITE NOT SPECIFIED Qualifiers: Urinary tract infection type: acute cystitis Hematuria presence: without hematuria Qualified Code(s): N30.00 - Acute cystitis without hematuria (4) Elevated troponin I level Assessment/Plan: - Likely secondary to Sepsis - Continue cardiac monitoring - Serial Enzymes - EKG- lateral ST changes - Cardiology Consulted - Asa Code(s): R74.8 - ABNORMAL LEVELS OF OTHER SERUM ENZYMES (5) Dementia Assessment/Plan: - Continue to monitor and treat accordingly - Fall Precautions Code(s): F03.90 - UNSPECIFIED DEMENTIA WITHOUT BEHAVIORAL DISTURBANCE Qualifiers: Dementia type: Alzheimer's disease Alzheimer's disease onset: unspecified onset Dementia behavioral disturbance: without behavioral disturbance Qualified Code(s): G30.9 - Alzheimer's disease, unspecified; F02.80 - Dementia in other diseases classified elsewhere without behavioral disturbance; F02.80 - Dementia in other diseases classified elsewhere without behavioral disturbance; F02.80 - Dementia in other diseases classified elsewhere without behavioral disturbance (6) DVT prophylaxis Assessment/Plan: - SCDs - Heparin SQ Code(s): [id number] - Discussed in detail with the son and family present by the bedside.
[2017-10-04] MEDS: CHLORHEXIDINE GLUCONATE 4% CLEANSER FOR DECOLONIZATION TP SCH (21:01)
[2017-10-04] MEDS: VANCOMYCIN 1,000 MG in DEXTROSE 5%-WATER - 250 ML IVPB SCH (22:18)
[2017-10-04] MEDS: DEXTROSE 5%-0.45% SALINE 1,000 ML IV SCH (22:19)
[2017-10-05] MEDS ORDERED: PT OWN MED DRAWER 7, Y5N ONE ×4 (01:15→21:56)
[2017-10-05] MEDS: DEXTROSE 5%-0.45% SALINE 1,000 ML IV SCH (02:06)
[2017-10-05] MEDS: PIPERACILLIN/TAZOB 3.375 GM 3.375 GM in DEXTROSE 5%-WATER - 50 ML IVPB SCH ×3 (02:06→17:58)
[2017-10-05] MEDS: HEPARIN NA (PORCINE) 5,000 UNITS/ML 1ML VIAL SQ SCH ×3 (05:43→23:00)
[2017-10-05 08:04] LABS: BASOPHIL 0.1 % (0-2.0); EOSINOPHIL 0.3 % (0-4.5); MCH 25.9 pg (25.7-33.7); MCHC 31.2 g/dl (32.0-36.0); MEAN CELL VOLUME 83.2 fl (80-96); MEAN PLT VOLUME 9.3 fl (7.5-11.1); NEUTROPHILS 88.9 % (42.8-82.8); PLATELET COUNT 352 K/MM3 (134-434); RDW 15.7 % (11.6-15.6); WHITE BLOOD COUNT 23.7 K/mm3 (4.0-10.0)
[2017-10-05 09:07] LABS: ALBUMIN 1.7 g/dl (3.4-5.0); ANION GAP 6 (8-16); CALCIUM 8.3 mg/dL (8.5-10.1); CO2 31 mmol/L (21-32); GLUCOSE,RANDOM 114 mg/dL (74-106)
[2017-10-05 09:11] LABS: ALK PHOS 74 U/L (45-117); BILIRUBIN,TOTAL 0.4 mg/dL (0.2-1.0); SGOT/AST 18 U/L (15-37); SGPT/ALT 22 U/L (12-78); TOT PROT 5.5 g/dl (6.4-8.2)
--- NOTE | 2017-10-05 09:33 | PN ---
Progress Note, Physician History of Present Illness: HPI: Briefly Ms Cardoza is an 86 year old woman with pmhx of dementia, aspiration pna, decubitus ulcer who presented to ED today via EMS for < 24Hr hrs of shortness of breath. She is a resident of [facility] and came in with her son. She in unable to provide hx. She is frail appearing and apparently has been in declining health. EMS felt she was in heart failure and she received 2 SL nitro prior to arrival in ED. In ED pt was febrile to 100, tachy w/HR 125, dyspneic with RR in high 20s, BP 76/56. She had significant wob and acute hypercapneic resp failure (7.25/54), started on Bilevel NIV. Labs otherwise notable for wbc 30K 10% bandemia, lactate 8, Cr 1.4 unk baseline. UA w / pyuria WBC 600+, +LE/N. CXR revealed perihilar congestion and possible RLL infiltrate vs atelectesis. EKG with some lateral ST changes, trop was 0.09, BNP 1200. She was started on Vancomycin, LVQ and Pip/Geovany for UTI and HAP, was given some gentle fluid resuscitation. Repeat abg pending. - Current Medication List Current Medications: Active Medications Chlorhexidine Gluconate (Hibiclens For Decolonization -) 1 applic TP HS [facility] Last Admin: 10/04/17 21:01 Dose: Not Given Collagenase (Santyl -) 1 applic TP DAILY [facility] Last Admin: 10/04/17 13:01 Dose: 1 applic Heparin Sodium (Porcine) (Heparin -) 5,000 unit SQ TID [facility] Last Admin: 10/05/17 05:43 Dose: 5,000 unit Dextrose/Sodium Chloride (D5-1/2ns -) 1,000 mls @ 60 mls/hr IV ASDIR [facility] Last Admin: 10/05/17 02:06 Dose: 60 mls/hr Piperacillin Sod/Tazobactam (Sod 3.375 gm/ Dextrose) 50 mls @ 100 mls/hr IVPB Q8H-IV [facility] Last Admin: 10/05/17 02:06 Dose: 100 mls/hr Vancomycin HCl 1,000 mg/ (Dextrose) 250 mls @ 166.667 mls/hr IVPB Q24H [facility] Last Admin: 10/04/17 22:18 Dose: 166.667 mls/hr Mupirocin (Bactroban Ointment (For Decolonization) -) 1 applic NS BID [facility] Stop: 10/07/17 09:59 Last Admin: 10/04/17 21:01 Dose: Not Given Nystatin (Nystop Powder -) 1 applic TP DAILY [facility] Last Admin: 10/04/17 10:34 Dose: 1 applic - Objective Vital Signs: Vital Signs Temperature 97.9 F 10/05/17 06:00 Pulse Rate 74 10/05/17 06:00 Respiratory Rate 26 H 10/05/17 06:00 Blood Pressure 121/71 10/05/17 06:00 O2 Sat by Pulse Oximetry (%) 96 10/04/17 22:10 Eyes: Yes: WNL, Conjunctiva Clear, EOM Intact HENT: Yes: WNL, Atraumatic, Normocephalic Neck: Yes: WNL, Supple, Trachea Midline Cardiovascular: Yes: WNL, Regular Rate and Rhythm Respiratory: Yes: Diminished, On Venti-Mask Gastrointestinal: Yes: WNL, Normal Bowel Sounds Genitourinary: Yes: WNL Musculoskeletal: Yes: WNL Edema: Yes Integumentary: Yes: WNL Neurological: Yes: WNL, Alert, Oriented ...Motor Strength: WNL Psychiatric: Yes: WNL Labs: CBC, BMP 10/05/17 06:00 10/05/17 06:00 INR, PTT INR 1.05 (0.82-1.09) 10/01/17 19:30 Problem List - Problems (1) DVT prophylaxis Code(s): [id number] - (2) Dementia Code(s): F03.90 - UNSPECIFIED DEMENTIA WITHOUT BEHAVIORAL DISTURBANCE Qualifiers: Dementia type: Alzheimer's disease Alzheimer's disease onset: unspecified onset Dementia behavioral disturbance: without behavioral disturbance Qualified Code(s): G30.9 - Alzheimer's disease, unspecified; F02.80 - Dementia in other diseases classified elsewhere without behavioral disturbance; F02.80 - Dementia in other diseases classified elsewhere without behavioral disturbance; F02.80 - Dementia in other diseases classified elsewhere without behavioral disturbance (3) Elevated troponin I level Code(s): R74.8 - ABNORMAL LEVELS OF OTHER SERUM ENZYMES (4) Infected pressure ulcer Code(s): L89.90 - PRESSURE ULCER OF UNSPECIFIED SITE, UNSPECIFIED STAGE; L08.9 - LOCAL INFECTION OF THE SKIN AND SUBCUTANEOUS TISSUE, UNSP (5) Pneumonia Code(s): J18.9 - PNEUMONIA, UNSPECIFIED ORGANISM Qualifiers: Pneumonia type: due to unspecified organism Laterality: left Lung location: lower lobe of lung Qualified Code(s): J18.1 - Lobar pneumonia, unspecified organism (6) Sepsis Code(s): A41.9 - SEPSIS, UNSPECIFIED ORGANISM Qualifiers: Sepsis type: sepsis due to unspecified organism Qualified Code(s): A41.9 - Sepsis, unspecified organism (7) UTI (urinary tract infection) Code(s): N39.0 - URINARY TRACT INFECTION, SITE NOT SPECIFIED Qualifiers: Urinary tract infection type: acute cystitis Hematuria presence: without hematuria Qualified Code(s): N30.00 - Acute cystitis without hematuria Assessment/Plan imp; Acute Hypercapneic Respiratory Failure UTI Infected Sacral Decubitus Ulcer Sepsis Lactic Acidosis Acute Kidney Injury Dementia elevated bnp and tni's - most likely due to sepsis Plan abx cont supportive rx will f/u
[2017-10-05] MEDS: MUPIROCIN 2% TOPICAL OINTMENT FOR DECOLONIZATION NS SCH ×2 (09:48→21:48)
[2017-10-05] MEDS: NYSTATIN POWDER 100,000 UNITS/GM - 15 GM TOPICAL POWDER TP SCH (10:00)
[2017-10-05] MEDS: COLLAGENASE CLOSTRIDIUM HIST. 30 GRAMS TUBE TP SCH (10:00)
--- NOTE | 2017-10-05 10:41 | PN ---
Progress Note (short form) - Note Progress Note: resting comfortably remains on bipap Vital Signs Period Temp Pulse Resp BP Sys/Vega Pulse Ox Last 24 Hr 97.9 F-98.6 F 74-84 24-26 121-129/65-71 94-96 cor-rrr lungs decreased bs at bases abd soft,nt ext no edema CBC, BMP 10/05/17 06:00 10/05/17 06:00 Microbiology 10/01/17 19:50 Blood - Peripheral Venous Blood Culture - Preliminary NO GROWTH OBTAINED AFTER 72 HOURS, INCUBATION TO CONTINUE FOR 2 DAYS. 10/01/17 19:50 Blood - Peripheral Venous Blood Culture - Preliminary NO GROWTH OBTAINED AFTER 72 HOURS, INCUBATION TO CONTINUE FOR 2 DAYS. 10/02/17 00:15 Nasopharyngeal Swab Respiratory Virus (PCR) - Final 10/01/17 22:00 Urine - Urine - Catheterized Urine Culture - Final NO GROWTH OBTAINED 10/02/17 08:40 Urine For Antigen Detection Legionella Antigen - Final 10/02/17 08:40 Urine For Antigen Detection Streptococcus pneumoniae Antigen (M - Final 10/02/17 00:15 Nasopharyngeal Swab Influenza Types A,B Antigen ([facility]UY) - Final 10/02/17 00:15 Nasopharyngeal Swab - Final imp/reccd sepsis uti infected necrotic foulsmelling ulcer on upper back pneumonia dnr/dni continue antibiotics-vanco/zosyn check vancomycin trough before 4th dose Problem List - Problems (1) Sepsis Code(s): A41.9 - SEPSIS, UNSPECIFIED ORGANISM Qualifiers: Sepsis type: sepsis due to unspecified organism Qualified Code(s): A41.9 - Sepsis, unspecified organism (2) UTI (urinary tract infection) Code(s): N39.0 - URINARY TRACT INFECTION, SITE NOT SPECIFIED Qualifiers: Urinary tract infection type: acute cystitis Hematuria presence: without hematuria Qualified Code(s): N30.00 - Acute cystitis without hematuria (3) Infected pressure ulcer Code(s): L89.90 - PRESSURE ULCER OF UNSPECIFIED SITE, UNSPECIFIED STAGE; L08.9 - LOCAL INFECTION OF THE SKIN AND SUBCUTANEOUS TISSUE, UNSP (4) Elevated troponin I level Code(s): R74.8 - ABNORMAL LEVELS OF OTHER SERUM ENZYMES (5) Dementia Code(s): F03.90 - UNSPECIFIED DEMENTIA WITHOUT BEHAVIORAL DISTURBANCE Qualifiers: Dementia type: Alzheimer's disease Alzheimer's disease onset: unspecified onset Dementia behavioral disturbance: without behavioral disturbance Qualified Code(s): G30.9 - Alzheimer's disease, unspecified; F02.80 - Dementia in other diseases classified elsewhere without behavioral disturbance; F02.80 - Dementia in other diseases classified elsewhere without behavioral disturbance; F02.80 - Dementia in other diseases classified elsewhere without behavioral disturbance
--- NOTE | 2017-10-05 13:32 | PN ---
Progress Note (short form) - Note Progress Note: PULMONARY FAMILY PRESENT ON BIPAP REQUIRING 60% FIO2 PALE/AFEBRILE SCATTERED RHONCHI S1S2 BS+ NO EDEMA LABS/MEDS/NOTES/IMAGES REVIEWED Sepsis Lactic acidosis UTI PNA Aspiration Stage III Decubitus Ulcer Leukocytosis Advanced Dementia (+) troponin Broad spectrum ABX per ID Aspiration precautions Follow cultures IVF Local wound care Aspiration precautions NIPPV DNR/DNI Alaina CONNORS MD
--- NOTE | 2017-10-05 14:15 | PN ---
Progress Note, Physician Chief Complaint: Non verbal on BIPAP family is bed side History of Present Illness: 86 yrs old F with H/O Dementia, bed bound decubitus ulcer NH resident DNR DNI admitted with respiratory failure aspiration Pneumonia and UTI - Current Medication List Current Medications: Active Medications Chlorhexidine Gluconate (Hibiclens For Decolonization -) 1 applic TP HS [facility] Last Admin: 10/04/17 21:01 Dose: Not Given Collagenase (Santyl -) 1 applic TP DAILY [facility] Last Admin: 10/05/17 10:00 Dose: 1 applic Heparin Sodium (Porcine) (Heparin -) 5,000 unit SQ TID [facility] Last Admin: 10/05/17 05:43 Dose: 5,000 unit Dextrose/Sodium Chloride (D5-1/2ns -) 1,000 mls @ 60 mls/hr IV ASDIR [facility] Last Admin: 10/05/17 02:06 Dose: 60 mls/hr Piperacillin Sod/Tazobactam (Sod 3.375 gm/ Dextrose) 50 mls @ 100 mls/hr IVPB Q8H-IV [facility] Last Admin: 10/05/17 09:49 Dose: 100 mls/hr Vancomycin HCl 1,000 mg/ (Dextrose) 250 mls @ 166.667 mls/hr IVPB Q24H [facility] Last Admin: 10/04/17 22:18 Dose: 166.667 mls/hr Mupirocin (Bactroban Ointment (For Decolonization) -) 1 applic NS BID [facility] Stop: 10/07/17 09:59 Last Admin: 10/05/17 09:48 Dose: Not Given Nystatin (Nystop Powder -) 1 applic TP DAILY [facility] Last Admin: 10/05/17 10:00 Dose: 1 applic - Objective Vital Signs: Vital Signs Temperature 97.9 F 10/05/17 06:00 Pulse Rate 86 10/05/17 10:45 Respiratory Rate 26 H 10/05/17 06:00 Blood Pressure 121/71 10/05/17 06:00 O2 Sat by Pulse Oximetry (%) 95 10/05/17 14:02 Elderly F on BIPAP no verbal HEENT: Mm moist, no anemia, PERRLA, EOMI NECK; No JVD No Bruit, Thyroid Central CHEST: B/L Crepts CVS: S1S2 R no m/g/r ABD: No distention, non tender BS + EXT: DeCubitus ulcersTrace edema feet, no calf tenderness, Pulses + PERFORATOR: Oriented to self Labs: CBC, BMP 10/05/17 06:00 10/05/17 06:00 INR, PTT INR 1.05 (0.82-1.09) 10/01/17 19:30 Problem List - Problems (1) Aspiration pneumonia Assessment/Plan: On IV Vancomycine and Zosyn F/U cultures Code(s): J69.0 - PNEUMONITIS DUE TO INHALATION OF FOOD AND VOMIT (2) UTI (urinary tract infection) Assessment/Plan: ConT IV abx F/U Urine and Blood cultures Code(s): N39.0 - URINARY TRACT INFECTION, SITE NOT SPECIFIED (3) Infected pressure ulcer Assessment/Plan: Wound care on Broad spectrum abx Code(s): L89.90 - PRESSURE ULCER OF UNSPECIFIED SITE, UNSPECIFIED STAGE; L08.9 - LOCAL INFECTION OF THE SKIN AND SUBCUTANEOUS TISSUE, UNSP (4) Elevated troponin I level Assessment/Plan: Due to Demand ischemia secondary to sepsis s/ respiratory distress. Code(s): R74.8 - ABNORMAL LEVELS OF OTHER SERUM ENZYMES (5) Dementia Assessment/Plan: Chronic Code(s): F03.90 - UNSPECIFIED DEMENTIA WITHOUT BEHAVIORAL DISTURBANCE Qualifiers: Dementia type: Alzheimer's disease Alzheimer's disease onset: unspecified onset Dementia behavioral disturbance: without behavioral disturbance Qualified Code(s): G30.9 - Alzheimer's disease, unspecified; F02.80 - Dementia in other diseases classified elsewhere without behavioral disturbance; F02.80 - Dementia in other diseases classified elsewhere without behavioral disturbance; F02.80 - Dementia in other diseases classified elsewhere without behavioral disturbance (6) Hypokalemia Assessment/Plan: F/U Magnesium KCL 20 m eq X2 IVSS Code(s): E87.6 - HYPOKALEMIA (7) Hypernatremia Assessment/Plan: D51/2 NS with KCL Code(s): E87.0 - HYPEROSMOLALITY AND HYPERNATREMIA (8) Sepsis Assessment/Plan: due to aspiration pneumonia Code(s): A41.9 - SEPSIS, UNSPECIFIED ORGANISM Qualifiers: Sepsis type: sepsis due to unspecified organism Qualified Code(s): A41.9 - Sepsis, unspecified organism (9) Respiratory failure Assessment/Plan: due to aspiration pneumonia cont CPAP, IV abx Code(s): J96.90 - RESPIRATORY FAILURE, UNSP, UNSP W HYPOXIA OR HYPERCAPNIA Qualifiers: Chronicity: acute Respiratory failure complication: hypoxia Qualified Code(s): J96.01 - Acute respiratory failure with hypoxia
[2017-10-05] MEDS ORDERED: POTASSIUM CHLORIDE 20 MEQ PREMIX IVPB 100 ML IVPB ONE ×2 (17:58→18:15)
[2017-10-05] MEDS ORDERED: POTASSIUM CHLORIDE 20 MEQ in SODIUM CHLORIDE 250 ML IVPB ONE (18:30)
[2017-10-05] MEDS: VANCOMYCIN 1,000 MG in DEXTROSE 5%-WATER - 250 ML IVPB SCH (21:48)
[2017-10-05] MEDS: CHLORHEXIDINE GLUCONATE 4% CLEANSER FOR DECOLONIZATION TP SCH (21:49)
[2017-10-05] MEDS: D5-1/2NS+10 MEQ KCL - 10 MEQ/1,000 ML INFUS.BAG IV SCH (23:09)
[2017-10-06] MEDS ORDERED: PT OWN MED DRAWER 7, Y5N ONE ×2 (01:43→17:02)
[2017-10-06] MEDS: PIPERACILLIN/TAZOB 3.375 GM 3.375 GM in DEXTROSE 5%-WATER - 50 ML IVPB SCH ×3 (01:51→17:06)
[2017-10-06] MEDS: HEPARIN NA (PORCINE) 5,000 UNITS/ML 1ML VIAL SQ SCH ×3 (05:57→21:59)
[2017-10-06 08:23] LABS: BASOPHIL 0.1 % (0-2.0); EOSINOPHIL 0.4 % (0-4.5); MCH 25.7 pg (25.7-33.7); MEAN CELL VOLUME 82.9 fl (80-96); MEAN PLT VOLUME 9.2 fl (7.5-11.1); PLATELET COUNT 341 K/MM3 (134-434); RDW 15.6 % (11.6-15.6); WHITE BLOOD COUNT 16.8 K/mm3 (4.0-10.0)
[2017-10-06 08:24] LABS: ANION GAP 11 (8-16); CALCIUM 8.3 mg/dL (8.5-10.1); CO2 25 mmol/L (21-32); CREATININE 0.9 mg/dL (0.55-1.02); GLUCOSE,RANDOM 148 mg/dL (74-106)
--- NOTE | 2017-10-06 09:42 | PN ---
Progress Note (short form) - Note Progress Note: resting comfortably remains on bipap nad Vital Signs Period Temp Pulse Resp BP Sys/Vega Pulse Ox Last 24 Hr 97.9 F-98.3 F 68-86 20-36 108-140/53-74 95-97 on bipap cor-rrr lungs decreased bs at bases abd soft,nt ext no edema CBC, BMP 10/06/17 06:00 10/06/17 06:00 vanco trough 19 Microbiology 10/01/17 19:50 Blood - Peripheral Venous Blood Culture - Preliminary NO GROWTH OBTAINED AFTER 96 HOURS, INCUBATION TO CONTINUE FOR 1 DAYS. 10/01/17 19:50 Blood - Peripheral Venous Blood Culture - Preliminary NO GROWTH OBTAINED AFTER 96 HOURS, INCUBATION TO CONTINUE FOR 1 DAYS. 10/02/17 00:15 Nasopharyngeal Swab Respiratory Virus (PCR) - Final 10/01/17 22:00 Urine - Urine - Catheterized Urine Culture - Final NO GROWTH OBTAINED 10/02/17 08:40 Urine For Antigen Detection Legionella Antigen - Final 10/02/17 08:40 Urine For Antigen Detection Streptococcus pneumoniae Antigen (M - Final 10/02/17 00:15 Nasopharyngeal Swab Influenza Types A,B Antigen ([facility]) - Final 10/02/17 00:15 Nasopharyngeal Swab - Final imp/reccd sepsis uti infected ulcer on upper back pneumonia dnr/dni continue antibiotics-zosyn day #5 vanco on hold due to elevated trough repeat trough in am Problem List - Problems (1) Sepsis Code(s): A41.9 - SEPSIS, UNSPECIFIED ORGANISM Qualifiers: Sepsis type: sepsis due to unspecified organism Qualified Code(s): A41.9 - Sepsis, unspecified organism (2) UTI (urinary tract infection) Code(s): N39.0 - URINARY TRACT INFECTION, SITE NOT SPECIFIED Qualifiers: Urinary tract infection type: acute cystitis Hematuria presence: without hematuria Qualified Code(s): N30.00 - Acute cystitis without hematuria (3) Infected pressure ulcer Code(s): L89.90 - PRESSURE ULCER OF UNSPECIFIED SITE, UNSPECIFIED STAGE; L08.9 - LOCAL INFECTION OF THE SKIN AND SUBCUTANEOUS TISSUE, UNSP (4) Elevated troponin I level Code(s): R74.8 - ABNORMAL LEVELS OF OTHER SERUM ENZYMES (5) Dementia Code(s): F03.90 - UNSPECIFIED DEMENTIA WITHOUT BEHAVIORAL DISTURBANCE Qualifiers: Dementia type: Alzheimer's disease Alzheimer's disease onset: unspecified onset Dementia behavioral disturbance: without behavioral disturbance Qualified Code(s): G30.9 - Alzheimer's disease, unspecified; F02.80 - Dementia in other diseases classified elsewhere without behavioral disturbance; F02.80 - Dementia in other diseases classified elsewhere without behavioral disturbance; F02.80 - Dementia in other diseases classified elsewhere without behavioral disturbance
--- NOTE | 2017-10-06 09:52 | PN ---
Progress Note, Physician History of Present Illness: HPI: Briefly Ms Cardoza is an 86 year old woman with pmhx of dementia, aspiration pna, decubitus ulcer who presented to ED today via EMS for < 24Hr hrs of shortness of breath. She is a resident of [facility] and came in with her son. She in unable to provide hx. She is frail appearing and apparently has been in declining health. EMS felt she was in heart failure and she received 2 SL nitro prior to arrival in ED. In ED pt was febrile to 100, tachy w/HR 125, dyspneic with RR in high 20s, BP 76/56. She had significant wob and acute hypercapneic resp failure (7.25/54), started on Bilevel NIV. Labs otherwise notable for wbc 30K 10% bandemia, lactate 8, Cr 1.4 unk baseline. UA w / pyuria WBC 600+, +LE/N. CXR revealed perihilar congestion and possible RLL infiltrate vs atelectesis. EKG with some lateral ST changes, trop was 0.09, BNP 1200. She was started on Vancomycin, LVQ and Pip/Geovany for UTI and HAP, was given some gentle fluid resuscitation. Repeat abg pending. - Current Medication List Current Medications: Active Medications Chlorhexidine Gluconate (Hibiclens For Decolonization -) 1 applic TP HS [facility] Last Admin: 10/05/17 21:49 Dose: Not Given Collagenase (Santyl -) 1 applic TP DAILY [facility] Last Admin: 10/05/17 10:00 Dose: 1 applic Heparin Sodium (Porcine) (Heparin -) 5,000 unit SQ TID [facility] Last Admin: 10/06/17 05:57 Dose: 5,000 unit Piperacillin Sod/Tazobactam (Sod 3.375 gm/ Dextrose) 50 mls @ 100 mls/hr IVPB Q8H-IV [facility] Last Admin: 10/06/17 01:51 Dose: 100 mls/hr Potassium Chloride/Dextrose/Sod Cl (D5-1/2ns+10 Meq Kcl -) 10 meq in 1,000 mls @ 100 mls/hr IV ASDIR [facility] Last Admin: 10/05/17 23:09 Dose: 100 mls/hr Mupirocin (Bactroban Ointment (For Decolonization) -) 1 applic NS BID [facility] Stop: 10/07/17 09:59 Last Admin: 10/05/17 21:48 Dose: Not Given Nystatin (Nystop Powder -) 1 applic TP DAILY [facility] Last Admin: 10/05/17 10:00 Dose: 1 applic - Objective Vital Signs: Vital Signs Temperature 97.9 F 10/06/17 06:00 Pulse Rate 76 10/06/17 06:00 Respiratory Rate 20 10/06/17 06:00 Blood Pressure 139/74 10/06/17 06:00 O2 Sat by Pulse Oximetry (%) 96 10/05/17 22:00 Eyes: Yes: WNL, Conjunctiva Clear, EOM Intact HENT: Yes: WNL, Atraumatic, Normocephalic Neck: Yes: WNL, Supple, Trachea Midline Cardiovascular: Yes: WNL, Regular Rate and Rhythm Respiratory: Yes: WNL, Regular, CTA Bilaterally Gastrointestinal: Yes: WNL, Normal Bowel Sounds Genitourinary: Yes: WNL Musculoskeletal: Yes: WNL Extremities: Yes: WNL Edema: No Integumentary: Yes: WNL ...Motor Strength: WNL Psychiatric: Yes: WNL Labs: CBC, BMP 10/06/17 06:00 10/06/17 06:00 INR, PTT INR 1.05 (0.82-1.09) 10/01/17 19:30 Problem List - Problems (1) DVT prophylaxis Code(s): [id number] - (2) Dementia Code(s): F03.90 - UNSPECIFIED DEMENTIA WITHOUT BEHAVIORAL DISTURBANCE Qualifiers: Dementia type: Alzheimer's disease Alzheimer's disease onset: unspecified onset Dementia behavioral disturbance: without behavioral disturbance Qualified Code(s): G30.9 - Alzheimer's disease, unspecified; F02.80 - Dementia in other diseases classified elsewhere without behavioral disturbance; F02.80 - Dementia in other diseases classified elsewhere without behavioral disturbance; F02.80 - Dementia in other diseases classified elsewhere without behavioral disturbance (3) Elevated troponin I level Code(s): R74.8 - ABNORMAL LEVELS OF OTHER SERUM ENZYMES (4) Infected pressure ulcer Code(s): L89.90 - PRESSURE ULCER OF UNSPECIFIED SITE, UNSPECIFIED STAGE; L08.9 - LOCAL INFECTION OF THE SKIN AND SUBCUTANEOUS TISSUE, UNSP (5) Pneumonia Code(s): J18.9 - PNEUMONIA, UNSPECIFIED ORGANISM Qualifiers: Pneumonia type: due to unspecified organism Laterality: left Lung location: lower lobe of lung Qualified Code(s): J18.1 - Lobar pneumonia, unspecified organism (6) Sepsis Code(s): A41.9 - SEPSIS, UNSPECIFIED ORGANISM Qualifiers: Sepsis type: sepsis due to unspecified organism Qualified Code(s): A41.9 - Sepsis, unspecified organism (7) UTI (urinary tract infection) Code(s): N39.0 - URINARY TRACT INFECTION, SITE NOT SPECIFIED Qualifiers: Urinary tract infection type: acute cystitis Hematuria presence: without hematuria Qualified Code(s): N30.00 - Acute cystitis without hematuria Assessment/Plan imp; Acute Hypercapneic Respiratory Failure UTI Infected Sacral Decubitus Ulcer Sepsis Lactic Acidosis Acute Kidney Injury Dementia elevated bnp and tni's - most likely due to sepsis Plan abx cont supportive rx will f/u
[2017-10-06] MEDS: NYSTATIN POWDER 100,000 UNITS/GM - 15 GM TOPICAL POWDER TP SCH (09:56)
[2017-10-06] MEDS: COLLAGENASE CLOSTRIDIUM HIST. 30 GRAMS TUBE TP SCH (09:57)
[2017-10-06] MEDS: MUPIROCIN 2% TOPICAL OINTMENT FOR DECOLONIZATION NS SCH ×2 (09:58→21:57)
--- NOTE | 2017-10-06 10:58 | PN ---
Progress Note (short form) - Note Progress Note: PULMONARY ON BIPAP PALE/AFEBRILE SCATTERED RHONCHI S1S2 BS+ NO EDEMA LABS/MEDS/NOTES/IMAGES REVIEWED Sepsis Lactic acidosis UTI PNA Aspiration Stage III Decubitus Ulcer Leukocytosis Advanced Dementia (+) troponin ABX per ID IVF Local wound care NIPPV DNR/DNI Alaina CONNORS MD
[2017-10-06] MEDS: D5-1/2NS+10 MEQ KCL - 10 MEQ/1,000 ML INFUS.BAG IV SCH ×3 (11:13→22:12)
[2017-10-06 11:46] LABS: MAGNESIUM 2.1 mg/dL (1.8-2.4); PHOSPHOROUS 1.5 mg/dL (2.5-4.9)
--- NOTE | 2017-10-06 13:52 | PN ---
Progress Note, Physician Chief Complaint: Non verbal on BIPAP family is bed side History of Present Illness: 86 yrs old F with H/O Dementia, bed bound decubitus ulcer NH resident DNR DNI admitted with respiratory failure aspiration Pneumonia and UTI - Current Medication List Current Medications: Active Medications Chlorhexidine Gluconate (Hibiclens For Decolonization -) 1 applic TP HS [facility] Last Admin: 10/05/17 21:49 Dose: Not Given Collagenase (Santyl -) 1 applic TP DAILY [facility] [place] Last Admin: 10/06/17 09:57 Dose: 1 applic Heparin Sodium (Porcine) (Heparin -) 5,000 unit SQ TID [facility] [place] Last Admin: 10/06/17 05:57 Dose: 5,000 unit Piperacillin Sod/Tazobactam (Sod 3.375 gm/ Dextrose) 50 mls @ 100 mls/hr IVPB Q8H-IV [facility] [place] Last Admin: 10/06/17 09:56 Dose: 100 mls/hr Potassium Chloride/Dextrose/Sod Cl (D5-1/2ns+10 Meq Kcl -) 10 meq in 1,000 mls @ 100 mls/hr IV ASDIR [facility] [place] Last Admin: 10/06/17 11:13 Dose: 100 mls/hr Mupirocin (Bactroban Ointment (For Decolonization) -) 1 applic NS BID [facility] [place] Stop: 10/07/17 09:59 Last Admin: 10/06/17 09:58 Dose: Not Given Nystatin (Nystop Powder -) 1 applic TP DAILY [facility] [place] Last Admin: 10/06/17 09:56 Dose: 1 applic - Objective Vital Signs: Vital Signs Temperature 97.9 F 10/06/17 09:55 Pulse Rate 60 10/06/17 10:18 Respiratory Rate 26 H 10/06/17 09:55 Blood Pressure 133/76 10/06/17 09:55 O2 Sat by Pulse Oximetry (%) 96 10/06/17 10:18 Elderly F on BIPAP no verbal HEENT: Mm moist, no anemia, PERRLA, EOMI NECK; No JVD No Bruit, Thyroid Central CHEST: B/L Crepts CVS: S1S2 R no m/g/r ABD: No distention, non tender BS + EXT: DeCubitus ulcersTrace edema feet, no calf tenderness, Pulses + Labs: CBC, BMP 10/06/17 06:00 10/06/17 06:00 INR, PTT INR 1.05 (0.82-1.09) 10/01/17 19:30 Problem List - Problems (1) Aspiration pneumonia Assessment/Plan: On IV Vancomycine and Zosyn F/U cultures Code(s): J69.0 - PNEUMONITIS DUE TO INHALATION OF FOOD AND VOMIT (2) UTI (urinary tract infection) Assessment/Plan: ConT IV abx F/U Urine and Blood cultures Code(s): N39.0 - URINARY TRACT INFECTION, SITE NOT SPECIFIED (3) Infected pressure ulcer Assessment/Plan: Wound care on Broad spectrum abx Code(s): L89.90 - PRESSURE ULCER OF UNSPECIFIED SITE, UNSPECIFIED STAGE; L08.9 - LOCAL INFECTION OF THE SKIN AND SUBCUTANEOUS TISSUE, UNSP (4) Elevated troponin I level Assessment/Plan: Due to Demand ischemia secondary to sepsis s/ respiratory distress. Code(s): R74.8 - ABNORMAL LEVELS OF OTHER SERUM ENZYMES (5) Dementia Assessment/Plan: Chronic Code(s): F03.90 - UNSPECIFIED DEMENTIA WITHOUT BEHAVIORAL DISTURBANCE Qualifiers: Dementia type: Alzheimer's disease Alzheimer's disease onset: unspecified onset Dementia behavioral disturbance: without behavioral disturbance Qualified Code(s): G30.9 - Alzheimer's disease, unspecified; F02.80 - Dementia in other diseases classified elsewhere without behavioral disturbance; F02.80 - Dementia in other diseases classified elsewhere without behavioral disturbance; F02.80 - Dementia in other diseases classified elsewhere without behavioral disturbance (6) Hypokalemia Assessment/Plan: F/U Magnesium KCL 20 m eq X2 IVSS Code(s): E87.6 - HYPOKALEMIA (7) Hypernatremia Assessment/Plan: D51/2 NS with KCL Code(s): E87.0 - HYPEROSMOLALITY AND HYPERNATREMIA (8) Sepsis Code(s): A41.9 - SEPSIS, UNSPECIFIED ORGANISM Qualifiers: Sepsis type: sepsis due to unspecified organism Qualified Code(s): A41.9 - Sepsis, unspecified organism (9) Respiratory failure Code(s): J96.90 - RESPIRATORY FAILURE, UNSP, UNSP W HYPOXIA OR HYPERCAPNIA Qualifiers: Chronicity: acute Respiratory failure complication: hypoxia Qualified Code(s): J96.01 - Acute respiratory failure with hypoxia
[2017-10-06] MEDS: CHLORHEXIDINE GLUCONATE 4% CLEANSER FOR DECOLONIZATION TP SCH (21:57)
[2017-10-07] MEDS: PIPERACILLIN/TAZOB 3.375 GM 3.375 GM in DEXTROSE 5%-WATER - 50 ML IVPB SCH ×3 (01:20→17:42)
[2017-10-07] MEDS: HEPARIN NA (PORCINE) 5,000 UNITS/ML 1ML VIAL SQ SCH ×3 (05:54→21:38)
[2017-10-07] MEDS: D5-1/2NS+10 MEQ KCL - 10 MEQ/1,000 ML INFUS.BAG IV SCH (05:56)
[2017-10-07 07:55] LABS: BASOPHIL 0.1 % (0-2.0); EOSINOPHIL 0.8 % (0-4.5); MCH 26.4 pg (25.7-33.7); MCHC 31.7 g/dl (32.0-36.0); MEAN CELL VOLUME 83.2 fl (80-96); MEAN PLT VOLUME 8.6 fl (7.5-11.1); NEUTROPHILS 80.3 % (42.8-82.8); PLATELET COUNT 341 K/MM3 (134-434); RDW 15.8 % (11.6-15.6); WHITE BLOOD COUNT 15.1 K/mm3 (4.0-10.0)
[2017-10-07 08:16] LABS: ANION GAP 6 (8-16); CALCIUM 7.4 mg/dL (8.5-10.1); CO2 31 mmol/L (21-32); CREATININE 0.9 mg/dL (0.55-1.02); GLUCOSE,RANDOM 144 mg/dL (74-106)
--- NOTE | 2017-10-07 09:40 | PN ---
Progress Note (short form) - Note Progress Note: resting comfortably on ventimask this am Vital Signs Period Temp Pulse Resp BP Sys/Vega Pulse Ox Last 24 Hr 97.9 F-98.7 F 60-90 18-26 131-148/60-86 94-97 lungs scattered rhonchi cor-rrr abd soft,nt ext no edema CBC, BMP 10/07/17 07:25 10/07/17 07:25 Microbiology 10/01/17 19:50 Blood - Peripheral Venous Blood Culture - Final NO GROWTH AFTER 5 DAYS INCUBATION 10/01/17 19:50 Blood - Peripheral Venous Blood Culture - Final NO GROWTH AFTER 5 DAYS INCUBATION 10/02/17 00:15 Nasopharyngeal Swab Respiratory Virus (PCR) - Final 10/01/17 22:00 Urine - Urine - Catheterized Urine Culture - Final NO GROWTH OBTAINED 10/02/17 08:40 Urine For Antigen Detection Legionella Antigen - Final 10/02/17 08:40 Urine For Antigen Detection Streptococcus pneumoniae Antigen (M - Final 10/02/17 00:15 Nasopharyngeal Swab Influenza Types A,B Antigen ([facility]) - Final 10/02/17 00:15 Nasopharyngeal Swab - Final imp/reccd sepsis uti infected stage 3 ulcer on upper back pneumonia dnr/dni zosyn day #6 to complete 7 days of antibiotics Problem List - Problems (1) Sepsis Code(s): A41.9 - SEPSIS, UNSPECIFIED ORGANISM Qualifiers: Sepsis type: sepsis due to unspecified organism Qualified Code(s): A41.9 - Sepsis, unspecified organism (2) UTI (urinary tract infection) Code(s): N39.0 - URINARY TRACT INFECTION, SITE NOT SPECIFIED Qualifiers: Urinary tract infection type: acute cystitis Hematuria presence: without hematuria Qualified Code(s): N30.00 - Acute cystitis without hematuria (3) Infected pressure ulcer Code(s): L89.90 - PRESSURE ULCER OF UNSPECIFIED SITE, UNSPECIFIED STAGE; L08.9 - LOCAL INFECTION OF THE SKIN AND SUBCUTANEOUS TISSUE, UNSP (4) Elevated troponin I level Code(s): R74.8 - ABNORMAL LEVELS OF OTHER SERUM ENZYMES (5) Dementia Code(s): F03.90 - UNSPECIFIED DEMENTIA WITHOUT BEHAVIORAL DISTURBANCE Qualifiers: Dementia type: Alzheimer's disease Alzheimer's disease onset: unspecified onset Dementia behavioral disturbance: without behavioral disturbance Qualified Code(s): G30.9 - Alzheimer's disease, unspecified; F02.80 - Dementia in other diseases classified elsewhere without behavioral disturbance; F02.80 - Dementia in other diseases classified elsewhere without behavioral disturbance; F02.80 - Dementia in other diseases classified elsewhere without behavioral disturbance
[2017-10-07] MEDS ORDERED: ALBUTEROL SO4 2.5/IPRATROPIUM 0.5 INH SOL 3 ML VIAL.NEB. NEB ONE (10:19)
--- NOTE | 2017-10-07 10:32 | PN ---
Progress Note (short form) - Note Progress Note: Patient seen and examined. Events over the weekend noted. Awake, short of breath. Fluid overload. Discussed with nurse present by the bedside. Recent Travel: None PAST MEDICAL HISTORY: Dementia Aspirated Pneumonia Decubitus Ulcer PAST SURGICAL HISTORY: Unknown Social History: Smoking: Unknown Alcohol: None Drugs: None Resides in a SNF Family History: Non-contributory Allergies No Known Allergies Allergy (Verified 10/01/17 20:02) HOME MEDICATIONS: Home Medications Medication Instructions Recorded Acetaminophen 325 mg PO DAILY 10/01/17 Aspirin [ASA -] 81 mg PO DAILY 10/01/17 Vitamin B Comp W-C [Nephro-Milly -] 1 tablet PO DAILY 10/01/17 Vitamin B Comp W-C [Nephro-Milly -] 1 tablet PO DAILY 10/01/17 REVIEW OF SYSTEMS Unable to obtain- Dementia hx CONSTITUTIONAL: Absent: fever, chills, diaphoresis, generalized weakness, malaise, loss of appetite, weight change HEENT: Absent: rhinorrhea, nasal congestion, throat pain, throat swelling, difficulty swallowing, mouth swelling, ear pain, eye pain, visual changes CARDIOVASCULAR: Absent: chest pain, syncope, palpitations, irregular heart rate, lightheadedness , peripheral edema RESPIRATORY: Absent: cough, shortness of breath, dyspnea with exertion, orthopnea, wheezing, stridor, hemoptysis GASTROINTESTINAL: Absent: abdominal pain, abdominal distension, nausea, vomiting, diarrhea, constipation, melena, hematochezia GENITOURINARY: Absent: dysuria, frequency, urgency, hesitancy, hematuria, flank pain, genital pain MUSCULOSKELETAL: Absent: myalgia, arthralgia, joint swelling, back pain, neck pain SKIN: Absent: rash, itching, pallor HEMATOLOGIC/IMMUNOLOGIC: Absent: easy bleeding, easy bruising, lymphadenopathy, frequent infections ENDOCRINE: Absent: unexplained weight gain, unexplained weight loss, heat intolerance, cold intolerance NEUROLOGIC: Absent: headache, focal weakness or paresthesias, dizziness, unsteady gait, seizure, mental status changes, bladder or bowel incontinence PSYCHIATRIC: Absent: anxiety, depression, suicidal or homicidal ideation, hallucinations. PHYSICAL EXAMINATION Vital Signs Period Temp Pulse Resp BP Sys/Vega Pulse Ox Last 24 Hr 98.6 F-98.7 F 64-90 18-22 131-148/60-86 94-97 GENERAL: Awake, alert to baseline, in no acute distress. HEAD: Normal with no signs of trauma. EYES: Pupils equal, round and reactive to light, sclera anicteric, conjunctiva clear. No lid lag. EARS, NOSE, THROAT: Ears normal, nares patent, oropharynx clear without exudates. Dry mucous membranes. NECK: Normal range of motion, supple without lymphadenopathy, JVD, or masses. LUNGS: On Bipap, +coarse crackles scattered diffusely, diminished RLL HEART: Regular rate and rhythm, normal S1 and S2 without murmur, rub or gallop. ABDOMEN: Soft, nontender, not distended, normoactive bowel sounds, no guarding, no rebound, no masses. No hepatomegaly or splenomegaly. MUSCULOSKELETAL: Normal range of motion at all joints. No bony deformities or tenderness. No CVA tenderness. UPPER EXTREMITIES: 2+ pulses, warm, well-perfused. No cyanosis. No clubbing. No peripheral edema. LOWER EXTREMITIES: 2+ pulses, warm, well-perfused. No calf tenderness. No peripheral edema. NEUROLOGICAL: Cranial nerves II-XII intact. Non-verbal. Gait not observed. PSYCHIATRIC: Restless, at baseline SKIN: Warm, dry, normal turgor, no rashes. Stage 4 pressure ulcer 4cm to R- scapula with eschar, serous sanguineous drainage lesions noted, normal capillary refill. CBC, BMP 10/07/17 07:25 10/07/17 07:25 Microbiology 10/01/17 19:50 Blood - Peripheral Venous Blood Culture - Preliminary NO GROWTH OBTAINED AFTER 72 HOURS, INCUBATION TO CONTINUE FOR 2 DAYS. 10/01/17 19:50 Blood - Peripheral Venous Blood Culture - Preliminary NO GROWTH OBTAINED AFTER 72 HOURS, INCUBATION TO CONTINUE FOR 2 DAYS. 10/02/17 00:15 Nasopharyngeal Swab Respiratory Virus (PCR) - Final ASSESSMENT/PLAN: This is a 86 y/o woman with a PMHx of Dementia, Aspiration Pneumonia, Decubitus. Admitted for Severe Sepsis secondary to UTI, Pneumonia. Problem List - Problem (1) Sepsis Assessment/Plan: - Continue IV abx. - ID follow up appreciated. Code(s): A41.9 - SEPSIS, UNSPECIFIED ORGANISM Qualifiers: Sepsis type: sepsis due to unspecified organism Qualified Code(s): A41.9 - Sepsis, unspecified organism (2) Pneumonia Assessment/Plan: - Continue current management. Code(s): J18.9 - PNEUMONIA, UNSPECIFIED ORGANISM Qualifiers: Pneumonia type: due to unspecified organism Laterality: left Lung location: lower lobe of lung Qualified Code(s): J18.1 - Lobar pneumonia, unspecified organism (3) UTI (urinary tract infection) Assessment/Plan: - Urine Cultures-negative - Continue Zosyn - Monitor vitals Code(s): N39.0 - URINARY TRACT INFECTION, SITE NOT SPECIFIED Qualifiers: Urinary tract infection type: acute cystitis Hematuria presence: without hematuria Qualified Code(s): N30.00 - Acute cystitis without hematuria (4) Elevated troponin I level Assessment/Plan: - Likely secondary to Sepsis - Continue cardiac monitoring - Serial Enzymes - EKG- lateral ST changes - Cardiology Consulted - Asa Code(s): R74.8 - ABNORMAL LEVELS OF OTHER SERUM ENZYMES (5) Dementia Assessment/Plan: - Continue to monitor and treat accordingly - Fall Precautions Code(s): F03.90 - UNSPECIFIED DEMENTIA WITHOUT BEHAVIORAL DISTURBANCE Qualifiers: Dementia type: Alzheimer's disease Alzheimer's disease onset: unspecified onset Dementia behavioral disturbance: without behavioral disturbance Qualified Code(s): G30.9 - Alzheimer's disease, unspecified; F02.80 - Dementia in other diseases classified elsewhere without behavioral disturbance; F02.80 - Dementia in other diseases classified elsewhere without behavioral disturbance; F02.80 - Dementia in other diseases classified elsewhere without behavioral disturbance (6) DVT prophylaxis Assessment/Plan: - SCDs - Heparin SQ Code(s): [id number] - 7) Acute Congestive Heart Failure - Fluid overload. - Stop IV fluids. - IV Lasix 20 mg IVPB stat. - Strict I/Os - Cardiology to see the patient. 8) Hypernatremia/Hypokalemia. - Replete. - Neprology consulted.
[2017-10-07] MEDS: ALBUTEROL SO4 2.5/IPRATROPIUM 0.5 INH SOL 3 ML VIAL.NEB. NEB SCH ×3 (10:34→17:11)
[2017-10-07] MEDS ORDERED: POTASSIUM CHLORIDE 20 MEQ PREMIX IVPB 100 ML IVPB SCH (10:45)
[2017-10-07] MEDS ORDERED: PT OWN MED DRAWER 7, Y5N ONE (11:24)
[2017-10-07] MEDS ORDERED: POTASSIUM CHLORIDE 20 MEQ in DEXTROSE 5%-WATER - 250 ML IVPB ONE (11:30)
[2017-10-07] MEDS ORDERED: FUROSEMIDE 40 MG/4 ML INJECTABLE VIAL IVPUSH ONE (11:30)
[2017-10-07] MEDS ORDERED: FUROSEMIDE 40 MG/4 ML INJECTABLE VIAL ONE (11:31)
--- NOTE | 2017-10-07 12:32 | PN ---
Progress Note, Physician History of Present Illness: HPI: Briefly Ms Cardoza is an 86 year old woman with pmhx of dementia, aspiration pna, decubitus ulcer who presented to ED today via EMS for < 24Hr hrs of shortness of breath. She is a resident of [facility] and came in with her son. She in unable to provide hx. She is frail appearing and apparently has been in declining health. EMS felt she was in heart failure and she received 2 SL nitro prior to arrival in ED. In ED pt was febrile to 100, tachy w/HR 125, dyspneic with RR in high 20s, BP 76/56. She had significant wob and acute hypercapneic resp failure (7.25/54), started on Bilevel NIV. Labs otherwise notable for wbc 30K 10% bandemia, lactate 8, Cr 1.4 unk baseline. UA w / pyuria WBC 600+, +LE/N. CXR revealed perihilar congestion and possible RLL infiltrate vs atelectesis. EKG with some lateral ST changes, trop was 0.09, BNP 1200. She was started on Vancomycin, LVQ and Pip/Geovany for UTI and HAP, was given some gentle fluid resuscitation. Repeat abg pending. - Current Medication List Current Medications: Active Medications Albuterol/Ipratropium (Duoneb -) 1 amp NEB QIDR [facility] Last Admin: 10/07/17 11:08 Dose: Not Given Chlorhexidine Gluconate (Hibiclens For Decolonization -) 1 applic TP HS [facility] Last Admin: 10/06/17 21:57 Dose: Not Given Collagenase (Santyl -) 1 applic TP DAILY [facility] Last Admin: 10/06/17 09:57 Dose: 1 applic Heparin Sodium (Porcine) (Heparin -) 5,000 unit SQ TID [facility] Last Admin: 10/07/17 05:54 Dose: 5,000 unit Piperacillin Sod/Tazobactam (Sod 3.375 gm/ Dextrose) 50 mls @ 100 mls/hr IVPB Q8H-IV [facility] Last Admin: 10/07/17 11:28 Dose: 100 mls/hr Potassium Chloride 20 meq/ (Dextrose) 260 mls @ 130 mls/hr IVPB ONCE ONE Stop: 10/07/17 13:29 Nystatin (Nystop Powder -) 1 applic TP DAILY [facility] Last Admin: 10/06/17 09:56 Dose: 1 applic - Objective Vital Signs: Vital Signs Temperature 98.7 F 10/07/17 05:00 Pulse Rate 75 10/07/17 10:32 Respiratory Rate 18 10/07/17 08:42 Blood Pressure 140/86 10/07/17 08:42 O2 Sat by Pulse Oximetry (%) 92 L 10/07/17 10:32 Eyes: Yes: WNL, Conjunctiva Clear, EOM Intact HENT: Yes: WNL, Atraumatic, Normocephalic Neck: Yes: WNL, Supple, Trachea Midline Cardiovascular: Yes: WNL, Regular Rate and Rhythm, S1, S2 Respiratory: Yes: WNL, Regular, CTA Bilaterally Gastrointestinal: Yes: WNL, Normal Bowel Sounds Genitourinary: Yes: WNL Musculoskeletal: Yes: WNL Extremities: Yes: WNL Edema: No Integumentary: Yes: WNL Neurological: Yes: WNL, Alert, Oriented ...Motor Strength: WNL Psychiatric: Yes: WNL Labs: CBC, BMP 10/07/17 07:25 10/07/17 07:25 INR, PTT INR 1.05 (0.82-1.09) 10/01/17 19:30 Problem List - Problems (1) DVT prophylaxis Code(s): GGC6434 - (2) Dementia Code(s): F03.90 - UNSPECIFIED DEMENTIA WITHOUT BEHAVIORAL DISTURBANCE Qualifiers: Dementia type: Alzheimer's disease Alzheimer's disease onset: unspecified onset Dementia behavioral disturbance: without behavioral disturbance Qualified Code(s): G30.9 - Alzheimer's disease, unspecified; F02.80 - Dementia in other diseases classified elsewhere without behavioral disturbance; F02.80 - Dementia in other diseases classified elsewhere without behavioral disturbance; F02.80 - Dementia in other diseases classified elsewhere without behavioral disturbance (3) Elevated troponin I level Code(s): R74.8 - ABNORMAL LEVELS OF OTHER SERUM ENZYMES (4) Infected pressure ulcer Code(s): L89.90 - PRESSURE ULCER OF UNSPECIFIED SITE, UNSPECIFIED STAGE; L08.9 - LOCAL INFECTION OF THE SKIN AND SUBCUTANEOUS TISSUE, UNSP (5) Pneumonia Code(s): J18.9 - PNEUMONIA, UNSPECIFIED ORGANISM Qualifiers: Pneumonia type: due to unspecified organism Laterality: left Lung location: lower lobe of lung Qualified Code(s): J18.1 - Lobar pneumonia, unspecified organism (6) Sepsis Code(s): A41.9 - SEPSIS, UNSPECIFIED ORGANISM Qualifiers: Sepsis type: sepsis due to unspecified organism Qualified Code(s): A41.9 - Sepsis, unspecified organism (7) UTI (urinary tract infection) Code(s): N39.0 - URINARY TRACT INFECTION, SITE NOT SPECIFIED Qualifiers: Urinary tract infection type: acute cystitis Hematuria presence: without hematuria Qualified Code(s): N30.00 - Acute cystitis without hematuria Assessment/Plan imp; Acute Hypercapneic Respiratory Failure UTI Infected Sacral Decubitus Ulcer Sepsis Lactic Acidosis Acute Kidney Injury Dementia elevated bnp and tni's - most likely due to sepsis Plan abx cont supportive rx will f/u
[2017-10-07 12:49] VITALS: BMI 27.1
--- NOTE | 2017-10-07 12:49 | CON.NEP ---
Consult Consult Specialty:: Nephrology Referred by:: Dr. Singh Reason for Consultation:: Hypernatremia - History of Present Illness Chief Complaint: SOB/ incresed RR History of Present Illness: This is a 86 year old woman with Dementia who is non-verbal and resident [place], Hx of aspiration PNA who presented with SOB/Increased RR and found to have UTI and infected sacral decubitis ulcers with LEA and hypernatremia. Pt also noted to have hypercarbic respiratory failure requiring BIPAP support. Renal function has improved. Pt currently getting IV lasix for management of effusions. Serum Na trended up to 150. Pt unable to provide any history. Family at the bedside. - History Source History Provided By: Family Member, Medical Record Limitations to Obtaining History: Clinical Condition - Alcohol/Substance Use Hx Alcohol Use: No - Smoking History Smoking history: Unknown if ever smoked Home Medications - Allergies Allergies/Adverse Reactions: Allergies Allergy/AdvReac Type Severity Reaction Status Date / Time No Known Allergies Allergy Verified 10/01/17 20:02 - Home Medications Home Medications: Ambulatory Orders Acetaminophen 325 mg PO DAILY 10/01/17 Aspirin [ASA -] 81 mg PO DAILY 10/01/17 Vitamin B Comp W-C [Nephro-Milly -] 1 tablet PO DAILY 10/01/17 Vitamin B Comp W-C [Nephro-Milly -] 1 tablet PO DAILY 10/01/17 Family Disease History - Family Disease History Family History: Unable to Obtain Review of Systems Unable to obtain ROS, reason: DEMENTIA Nephrology Consult - Height Height: 5 ft - Weight Weight: 63.049 kg - BMI Body Mass Index (BMI): 27.1 - Lab Results CBC,BMP: CBC, BMP 10/07/17 07:25 10/07/17 07:25 Anion Gap: Anion Gap Anion Gap 6 (8-16) L 10/07/17 07:25 - Imaging Chest X-ray: Report Reviewed - Physical Examination Vital Signs: Vital Signs Temperature 98.7 F 10/07/17 05:00 Pulse Rate 75 10/07/17 10:32 Respiratory Rate 18 10/07/17 08:42 Blood Pressure 140/86 10/07/17 08:42 O2 Sat by Pulse Oximetry (%) 92 L 10/07/17 10:32 Constitutional: Yes: Well Nourished, No Distress, Calm Eyes: Yes: Conjunctiva Clear HENT: Yes: Atraumatic, Normocephalic Neck: Yes: Supple Cardiovascular: Yes: Regular Rate and Rhythm Respiratory: Yes: Regular, Diminished (at lung bases) Gastrointestinal: Yes: Normal Bowel Sounds, Soft Renal/: No: Canela Present Edema: No Assessment/Plan 86 year old woman with Dementia who is non-verbal and resident [place], Hx of aspiration PNA who presented with SOB/Increased RR and found to have UTI and infected sacral decubitis ulcers with LEA and hypernatremia. #Hypernatremia Water deficit is 0.9 L will need free water or D5W will monitor for stabilization in respiratory status over the next several hours and then start D5W is stable #Acute Renal Failure now resolved trend BUN/Cr #Hypercarbic/Hypoxic Respiratory failure BIPAP as needed Pulmonary follow up #UTI/Scaral Decubitis ulcers continue Abx as per ID #Dementia supportive care #Hypokalemia to get KCL ivpb 20meq today check mg levels Thank you will follow David Ellis DO Current Medications Albuterol/Ipratropium (Duoneb -) 1 amp NEB QIDR [facility] Last Admin: 10/07/17 11:08 Dose: Not Given Chlorhexidine Gluconate (Hibiclens For Decolonization -) 1 applic TP HS [facility] Last Admin: 10/06/17 21:57 Dose: Not Given Collagenase (Santyl -) 1 applic TP DAILY [facility] Last Admin: 10/06/17 09:57 Dose: 1 applic Heparin Sodium (Porcine) (Heparin -) 5,000 unit SQ TID [facility] Last Admin: 10/07/17 05:54 Dose: 5,000 unit Piperacillin Sod/Tazobactam (Sod 3.375 gm/ Dextrose) 50 mls @ 100 mls/hr IVPB Q8H-IV [facility] Last Admin: 10/07/17 11:28 Dose: 100 mls/hr Potassium Chloride 20 meq/ (Dextrose) 260 mls @ 130 mls/hr IVPB ONCE ONE Stop: 10/07/17 13:29 Last Admin: 10/07/17 12:39 Dose: 130 mls/hr Nystatin (Nystop Powder -) 1 applic TP DAILY [facility] Last Admin: 10/06/17 09:56 Dose: 1 applic
--- NOTE | 2017-10-07 14:03 | PN ---
Progress Note (short form) - Note Progress Note: PULMONARY Tachypneic on BiPAP. Pt unable to verbalize. No fevers recorded. Last Vital Signs Temp Pulse Resp BP Pulse Ox 98.7 F 75 18 140/86 96 10/07/17 05:00 10/07/17 10:32 10/07/17 08:42 10/07/17 08:42 10/07/17 13:36 Gen: tachypneic on BiPAP Heart: RRR Lung: bilateral rhonchi Abd: soft, nontender Ext: no edema CBC, BMP 10/07/17 07:25 10/07/17 07:25 Active Medications Albuterol/Ipratropium (Duoneb -) 1 amp NEB QIDR [facility] Last Admin: 10/07/17 11:08 Dose: Not Given Chlorhexidine Gluconate (Hibiclens For Decolonization -) 1 applic TP HS [facility] Last Admin: 10/06/17 21:57 Dose: Not Given Collagenase (Santyl -) 1 applic TP DAILY [facility] Last Admin: 10/06/17 09:57 Dose: 1 applic Heparin Sodium (Porcine) (Heparin -) 5,000 unit SQ TID [facility] Last Admin: 10/07/17 05:54 Dose: 5,000 unit Piperacillin Sod/Tazobactam (Sod 3.375 gm/ Dextrose) 50 mls @ 100 mls/hr IVPB Q8H-IV [facility] Last Admin: 10/07/17 11:28 Dose: 100 mls/hr Nystatin (Nystop Powder -) 1 applic TP DAILY [facility] Last Admin: 10/06/17 09:56 Dose: 1 applic A/P Acute Hypercapneic Respiratory Failure UTI Infected Sacral Decubitus Ulcer Sepsis Lactic Acidosis Acute Kidney Injury improving Dementia - continue antibiotics - wound care - monitor urine output, creatinine - continue BiPAP for work of breathing - O2 to keep Spo2 >90% - aspiration precautions - DVT prophylaxis - continue discussions regarding goals of care, recommend comfort measures
[2017-10-07] MEDS: NYSTATIN POWDER 100,000 UNITS/GM - 15 GM TOPICAL POWDER TP SCH (18:55)
[2017-10-07] MEDS: COLLAGENASE CLOSTRIDIUM HIST. 30 GRAMS TUBE TP SCH (18:55)
[2017-10-07] MEDS: CHLORHEXIDINE GLUCONATE 4% CLEANSER FOR DECOLONIZATION TP SCH (21:04)
[2017-10-08] MEDS: ALBUTEROL SO4 2.5/IPRATROPIUM 0.5 INH SOL 3 ML VIAL.NEB. NEB SCH ×4 (00:05→18:29)
[2017-10-08] MEDS ORDERED: PT OWN MED DRAWER 7, Y5N ONE ×4 (01:12→18:16)
[2017-10-08] MEDS: PIPERACILLIN/TAZOB 3.375 GM 3.375 GM in DEXTROSE 5%-WATER - 50 ML IVPB SCH ×3 (01:20→17:40)
[2017-10-08] MEDS: HEPARIN NA (PORCINE) 5,000 UNITS/ML 1ML VIAL SQ SCH ×3 (05:54→21:27)
[2017-10-08 07:53] LABS: BASOPHIL 0.1 % (0-2.0); EOSINOPHIL 0.7 % (0-4.5); MCH 25.7 pg (25.7-33.7); MCHC 31.1 g/dl (32.0-36.0); MEAN CELL VOLUME 82.6 fl (80-96); MEAN PLT VOLUME 8.5 fl (7.5-11.1); NEUTROPHILS 83.6 % (42.8-82.8); PLATELET COUNT 335 K/MM3 (134-434); RDW 15.5 % (11.6-15.6); WHITE BLOOD COUNT 14.1 K/mm3 (4.0-10.0)
[2017-10-08 08:28] LABS: ALBUMIN 1.6 g/dl (3.4-5.0); ANION GAP 8 (8-16); CALCIUM 7.9 mg/dL (8.5-10.1); CO2 33 mmol/L (21-32); GLUCOSE,RANDOM 95 mg/dL (74-106)
[2017-10-08 08:31] LABS: ALK PHOS 74 U/L (45-117); BILIRUBIN,TOTAL 0.5 mg/dL (0.2-1.0); CREATININE 1.1 mg/dL (0.55-1.02); SGOT/AST 14 U/L (15-37); SGPT/ALT 17 U/L (12-78); TOT PROT 5.7 g/dl (6.4-8.2)
--- NOTE | 2017-10-08 10:05 | PN ---
Progress Note (short form) - Note Progress Note: NIPPV overnight. Now on 50% VM O2. Congested cough. Intake & Output 10/05/17 10/06/17 10/07/17 10/08/17 23:59 23:59 23:59 23:59 Intake Total 900 2400 1200 50 Balance 900 2400 1200 50 Weight 139 lb Last Vital Signs Temp Pulse Resp BP Pulse Ox 97.8 F 72 20 153/59 94 L 10/08/17 05:26 10/08/17 05:26 10/08/17 05:26 10/08/17 05:26 10/07/17 22:00 Active Medications Albuterol/Ipratropium (Duoneb -) 1 amp NEB QIDR [facility] Last Admin: 10/08/17 07:03 Dose: 1 amp Chlorhexidine Gluconate (Hibiclens For Decolonization -) 1 applic TP HS [facility] Last Admin: 10/07/17 21:04 Dose: Not Given Collagenase (Santyl -) 1 applic TP DAILY [facility] Last Admin: 10/07/17 18:55 Dose: 1 applic Heparin Sodium (Porcine) (Heparin -) 5,000 unit SQ TID [facility] Last Admin: 10/08/17 05:54 Dose: 5,000 unit Piperacillin Sod/Tazobactam (Sod 3.375 gm/ Dextrose) 50 mls @ 100 mls/hr IVPB Q8H-IV [facility] Last Admin: 10/08/17 01:20 Dose: 100 mls/hr Potassium Chloride 40 meq/ (Dextrose) 1,000 mls @ 75 mls/hr IVPB Q13H [facility] Nystatin (Nystop Powder -) 1 applic TP DAILY [facility] Last Admin: 10/07/17 18:55 Dose: Not Given Gen: Tachypneic on VM O2 Heart: RRR Lung: bilateral rhonchi Abd: soft, nontender Ext: no edema Laboratory Results - last 24 hr 10/08/17 10/08/17 06:00 06:00 WBC 14.1 H RBC 4.10 Hgb 10.5 L Hct 33.8 MCV 82.6 MCH 25.7 MCHC 31.1 L RDW 15.5 Plt Count 335 MPV 8.5 Neutrophils % 83.6 H Lymphocytes % 10.2 Monocytes % 5.4 Eosinophils % 0.7 Basophils % 0.1 Sodium 148 H Potassium 2.9 L* Chloride 107 Carbon Dioxide 33 H Anion Gap 8 BUN 16 Creatinine 1.1 H D Creat Clearance w eGFR 46.98 Random Glucose 95 D Calcium 7.9 L Total Bilirubin 0.5 D AST 14 L D ALT 17 D Alkaline Phosphatase 74 Total Protein 5.7 L Albumin 1.6 L A/P Acute Hypercapneic Respiratory Failure UTI Infected Sacral Decubitus Ulcer Sepsis Lactic Acidosis Acute Kidney Injury improving Dementia - ABX per ID - Local wound care - NIPPV alternating with VM O2 as tolerated to keep Spo2 >90% - Aspiration precautions - DVT prophylaxis - continue discussions regarding goals of care, recommend comfort measures Dr Lovett
[2017-10-08] MEDS: NYSTATIN POWDER 100,000 UNITS/GM - 15 GM TOPICAL POWDER TP SCH (10:06)
[2017-10-08] MEDS: COLLAGENASE CLOSTRIDIUM HIST. 30 GRAMS TUBE TP SCH (10:07)
[2017-10-08] MEDS: DEXTROSE 5% IVPB SCH (11:19)
[2017-10-08] MEDS: WATER IVPB SCH (11:19)
[2017-10-08] MEDS: POTASSIUM CHLORIDE IVPB SCH (11:19)
--- NOTE | 2017-10-08 11:25 | PN ---
Progress Note, Physician History of Present Illness: HPI: Briefly Ms Cardoza is an 86 year old woman with pmhx of dementia, aspiration pna, decubitus ulcer who presented to ED today via EMS for < 24Hr hrs of shortness of breath. She is a resident of [facility] and came in with her son. She in unable to provide hx. She is frail appearing and apparently has been in declining health. EMS felt she was in heart failure and she received 2 SL nitro prior to arrival in ED. In ED pt was febrile to 100, tachy w/HR 125, dyspneic with RR in high 20s, BP 76/56. She had significant wob and acute hypercapneic resp failure (7.25/54), started on Bilevel NIV. Labs otherwise notable for wbc 30K 10% bandemia, lactate 8, Cr 1.4 unk baseline. UA w / pyuria WBC 600+, +LE/N. CXR revealed perihilar congestion and possible RLL infiltrate vs atelectesis. EKG with some lateral ST changes, trop was 0.09, BNP 1200. She was started on Vancomycin, LVQ and Pip/Geovany for UTI and HAP, was given some gentle fluid resuscitation. Repeat abg pending. - Current Medication List Current Medications: Active Medications Albuterol/Ipratropium (Duoneb -) 1 amp NEB QIDR [facility] Last Admin: 10/08/17 07:03 Dose: 1 amp Chlorhexidine Gluconate (Hibiclens For Decolonization -) 1 applic TP HS [facility] Last Admin: 10/07/17 21:04 Dose: Not Given Collagenase (Santyl -) 1 applic TP DAILY [facility] Last Admin: 10/08/17 10:07 Dose: 1 applic Heparin Sodium (Porcine) (Heparin -) 5,000 unit SQ TID [facility] Last Admin: 10/08/17 05:54 Dose: 5,000 unit Piperacillin Sod/Tazobactam (Sod 3.375 gm/ Dextrose) 50 mls @ 100 mls/hr IVPB Q8H-IV [facility] Last Admin: 10/08/17 10:05 Dose: 100 mls/hr Potassium Chloride 40 meq/ (Dextrose) 1,000 mls @ 75 mls/hr IVPB Q13H [facility] Last Admin: 10/08/17 11:19 Dose: 75 mls/hr Nystatin (Nystop Powder -) 1 applic TP DAILY [facility] Last Admin: 10/08/17 10:06 Dose: 1 applic - Objective Vital Signs: Vital Signs Temperature 97.9 F 10/08/17 10:00 Pulse Rate 79 10/08/17 10:00 Respiratory Rate 20 10/08/17 10:00 Blood Pressure 138/77 10/08/17 10:00 O2 Sat by Pulse Oximetry (%) 94 L 10/07/17 22:00 Eyes: Yes: WNL, Conjunctiva Clear, EOM Intact HENT: Yes: WNL, Atraumatic, Normocephalic Neck: Yes: WNL, Supple, Trachea Midline Cardiovascular: Yes: WNL, Regular Rate and Rhythm Respiratory: Yes: Rhonchi Gastrointestinal: Yes: WNL, Normal Bowel Sounds Genitourinary: Yes: WNL Musculoskeletal: Yes: WNL Extremities: Yes: WNL Edema: No Integumentary: Yes: WNL ...Motor Strength: WNL Psychiatric: Yes: WNL Labs: CBC, BMP 10/08/17 06:00 10/08/17 06:00 INR, PTT INR 1.05 (0.82-1.09) 10/01/17 19:30 Problem List - Problems (1) DVT prophylaxis Code(s): LTX2010 - (2) Dementia Code(s): F03.90 - UNSPECIFIED DEMENTIA WITHOUT BEHAVIORAL DISTURBANCE Qualifiers: Dementia type: Alzheimer's disease Alzheimer's disease onset: unspecified onset Dementia behavioral disturbance: without behavioral disturbance Qualified Code(s): G30.9 - Alzheimer's disease, unspecified; F02.80 - Dementia in other diseases classified elsewhere without behavioral disturbance; F02.80 - Dementia in other diseases classified elsewhere without behavioral disturbance; F02.80 - Dementia in other diseases classified elsewhere without behavioral disturbance (3) Elevated troponin I level Code(s): R74.8 - ABNORMAL LEVELS OF OTHER SERUM ENZYMES (4) Infected pressure ulcer Code(s): L89.90 - PRESSURE ULCER OF UNSPECIFIED SITE, UNSPECIFIED STAGE; L08.9 - LOCAL INFECTION OF THE SKIN AND SUBCUTANEOUS TISSUE, UNSP (5) Pneumonia Code(s): J18.9 - PNEUMONIA, UNSPECIFIED ORGANISM Qualifiers: Pneumonia type: due to unspecified organism Laterality: left Lung location: lower lobe of lung Qualified Code(s): J18.1 - Lobar pneumonia, unspecified organism (6) Sepsis Code(s): A41.9 - SEPSIS, UNSPECIFIED ORGANISM Qualifiers: Sepsis type: sepsis due to unspecified organism Qualified Code(s): A41.9 - Sepsis, unspecified organism (7) UTI (urinary tract infection) Code(s): N39.0 - URINARY TRACT INFECTION, SITE NOT SPECIFIED Qualifiers: Urinary tract infection type: acute cystitis Hematuria presence: without hematuria Qualified Code(s): N30.00 - Acute cystitis without hematuria Assessment/Plan imp; Acute Hypercapneic Respiratory Failure UTI Infected Sacral Decubitus Ulcer Sepsis Lactic Acidosis Acute Kidney Injury Dementia elevated bnp and tni's - most likely due to sepsis Plan abx cont supportive rx will f/u
--- NOTE | 2017-10-08 13:13 | PN ---
Progress Note (short form) - Note Progress Note: resting comfortably more alert on ventimask Vital Signs Period Temp Pulse Resp BP Sys/Vega Pulse Ox Last 24 Hr 97.8 F-100.2 F 72-81 18-20 90-153/44-77 94-96 cor-rrr llungs scattered rhonchi abd soft,nt ext no edema CBC, BMP 10/08/17 06:00 10/08/17 06:00 Microbiology 10/01/17 19:50 Blood - Peripheral Venous Blood Culture - Final NO GROWTH AFTER 5 DAYS INCUBATION 10/01/17 19:50 Blood - Peripheral Venous Blood Culture - Final NO GROWTH AFTER 5 DAYS INCUBATION 10/02/17 00:15 Nasopharyngeal Swab Respiratory Virus (PCR) - Final 10/01/17 22:00 Urine - Urine - Catheterized Urine Culture - Final NO GROWTH OBTAINED 10/02/17 08:40 Urine For Antigen Detection Legionella Antigen - Final 10/02/17 08:40 Urine For Antigen Detection Streptococcus pneumoniae Antigen (M - Final 10/02/17 00:15 Nasopharyngeal Swab Influenza Types A,B Antigen ([facility]) - Final 10/02/17 00:15 Nasopharyngeal Swab - Final imp/reccd sepsis uti infected stage 3 ulcer on upper back pneumonia dnr/dni zosyn day #7 to continue wbc improving Problem List - Problems (1) Sepsis Code(s): A41.9 - SEPSIS, UNSPECIFIED ORGANISM Qualifiers: Sepsis type: sepsis due to unspecified organism Qualified Code(s): A41.9 - Sepsis, unspecified organism (2) UTI (urinary tract infection) Code(s): N39.0 - URINARY TRACT INFECTION, SITE NOT SPECIFIED Qualifiers: Urinary tract infection type: acute cystitis Hematuria presence: without hematuria Qualified Code(s): N30.00 - Acute cystitis without hematuria (3) Infected pressure ulcer Code(s): L89.90 - PRESSURE ULCER OF UNSPECIFIED SITE, UNSPECIFIED STAGE; L08.9 - LOCAL INFECTION OF THE SKIN AND SUBCUTANEOUS TISSUE, UNSP (4) Elevated troponin I level Code(s): R74.8 - ABNORMAL LEVELS OF OTHER SERUM ENZYMES (5) Dementia Code(s): F03.90 - UNSPECIFIED DEMENTIA WITHOUT BEHAVIORAL DISTURBANCE Qualifiers: Dementia type: Alzheimer's disease Alzheimer's disease onset: unspecified onset Dementia behavioral disturbance: without behavioral disturbance Qualified Code(s): G30.9 - Alzheimer's disease, unspecified; F02.80 - Dementia in other diseases classified elsewhere without behavioral disturbance; F02.80 - Dementia in other diseases classified elsewhere without behavioral disturbance; F02.80 - Dementia in other diseases classified elsewhere without behavioral disturbance
--- NOTE | 2017-10-08 14:12 | PN ---
Progress Note (short form) - Note Progress Note: Renal follow up for Hypernatremia Pt seen and examined at the bedside awake no overnight events stated D5W this am febrile last night Vital Signs Temperature 97.9 F 10/08/17 13:27 Pulse Rate 79 10/08/17 13:27 Respiratory Rate 20 10/08/17 13:27 Blood Pressure 122/55 10/08/17 13:27 O2 Sat by Pulse Oximetry (%) 95 10/08/17 10:00 Intake & Output 10/05/17 10/06/17 10/07/17 10/08/17 23:59 23:59 23:59 23:59 Intake Total 900 2400 1200 50 Balance 900 2400 1200 50 Weight 63.049 kg NAD awake RRR + rhochi at lung bases soft NT/ND Abd No LE edema CBC, BMP 10/08/17 06:00 10/08/17 06:00 Current Medications Albuterol/Ipratropium (Duoneb -) 1 amp NEB QIDR [facility] Last Admin: 10/08/17 11:41 Dose: 1 amp Chlorhexidine Gluconate (Hibiclens For Decolonization -) 1 applic TP HS [facility] Last Admin: 10/07/17 21:04 Dose: Not Given Collagenase (Santyl -) 1 applic TP DAILY [facility] Last Admin: 10/08/17 10:07 Dose: 1 applic Heparin Sodium (Porcine) (Heparin -) 5,000 unit SQ TID [facility] Last Admin: 10/08/17 13:07 Dose: 5,000 unit Piperacillin Sod/Tazobactam (Sod 3.375 gm/ Dextrose) 50 mls @ 100 mls/hr IVPB Q8H-IV [facility] Last Admin: 10/08/17 10:05 Dose: 100 mls/hr Potassium Chloride 40 meq/ (Dextrose) 1,000 mls @ 75 mls/hr IVPB Q13H [facility] Last Admin: 10/08/17 11:19 Dose: 75 mls/hr Nystatin (Nystop Powder -) 1 applic TP DAILY [facility] Last Admin: 10/08/17 10:06 Dose: 1 applic 86 year old woman with Dementia who is non-verbal and resident at [place], Hx of aspiration PNA who presented with SOB/Increased RR and found to have UTI and infected sacral decubitis ulcers with LEA and hypernatremia. #Hypernatremia started D5W with KCL this am monitor volume status/respiratoy status trend Na Q24hr #Acute Renal Failure now resolved trend BUN/Cr #Hypercarbic/Hypoxic Respiratory failure BIPAP as needed Pulmonary follow up #UTI/Scaral Decubitis ulcers continue Abx as per ID #Dementia supportive care #Hypokalemia to get KCl wit IVF Thank you will follow David Ellis DO
--- NOTE | 2017-10-08 16:29 | PN ---
Progress Note (short form) - Note Progress Note: Patient seen and examined. Doing better as compared to yesterday. Still congested. Thick secretions. Opening eyes. Afebrile. Recent Travel: None PAST MEDICAL HISTORY: Dementia Aspirated Pneumonia Decubitus Ulcer PAST SURGICAL HISTORY: Unknown Social History: Smoking: Unknown Alcohol: None Drugs: None Resides in a SNF Family History: Non-contributory Allergies No Known Allergies Allergy (Verified 10/01/17 20:02) HOME MEDICATIONS: Home Medications Medication Instructions Recorded Acetaminophen 325 mg PO DAILY 10/01/17 Aspirin [ASA -] 81 mg PO DAILY 10/01/17 Vitamin B Comp W-C [Nephro-Milly -] 1 tablet PO DAILY 10/01/17 Vitamin B Comp W-C [Nephro-Milly -] 1 tablet PO DAILY 10/01/17 REVIEW OF SYSTEMS Unable to obtain- Dementia hx CONSTITUTIONAL: Absent: fever, chills, diaphoresis, generalized weakness, malaise, loss of appetite, weight change HEENT: Absent: rhinorrhea, nasal congestion, throat pain, throat swelling, difficulty swallowing, mouth swelling, ear pain, eye pain, visual changes CARDIOVASCULAR: Absent: chest pain, syncope, palpitations, irregular heart rate, lightheadedness , peripheral edema RESPIRATORY: Absent: cough, shortness of breath, dyspnea with exertion, orthopnea, wheezing, stridor, hemoptysis GASTROINTESTINAL: Absent: abdominal pain, abdominal distension, nausea, vomiting, diarrhea, constipation, melena, hematochezia GENITOURINARY: Absent: dysuria, frequency, urgency, hesitancy, hematuria, flank pain, genital pain MUSCULOSKELETAL: Absent: myalgia, arthralgia, joint swelling, back pain, neck pain SKIN: Absent: rash, itching, pallor HEMATOLOGIC/IMMUNOLOGIC: Absent: easy bleeding, easy bruising, lymphadenopathy, frequent infections ENDOCRINE: Absent: unexplained weight gain, unexplained weight loss, heat intolerance, cold intolerance NEUROLOGIC: Absent: headache, focal weakness or paresthesias, dizziness, unsteady gait, seizure, mental status changes, bladder or bowel incontinence PSYCHIATRIC: Absent: anxiety, depression, suicidal or homicidal ideation, hallucinations. PHYSICAL EXAMINATION Vital Signs Period Temp Pulse Resp BP Sys/Veag Pulse Ox Last 24 Hr 97.8 F-100.2 F 72-81 18-20 90-153/44-77 94-95 GENERAL: Awake, alert to baseline, in no acute distress. HEAD: Normal with no signs of trauma. EYES: Pupils equal, round and reactive to light, sclera anicteric, conjunctiva clear. No lid lag. EARS, NOSE, THROAT: Ears normal, nares patent, oropharynx clear without exudates. Dry mucous membranes. NECK: Normal range of motion, supple without lymphadenopathy, JVD, or masses. LUNGS: On Bipap, +coarse crackles scattered diffusely, diminished RLL HEART: Regular rate and rhythm, normal S1 and S2 without murmur, rub or gallop. ABDOMEN: Soft, nontender, not distended, normoactive bowel sounds, no guarding, no rebound, no masses. No hepatomegaly or splenomegaly. MUSCULOSKELETAL: Normal range of motion at all joints. No bony deformities or tenderness. No CVA tenderness. UPPER EXTREMITIES: 2+ pulses, warm, well-perfused. No cyanosis. No clubbing. No peripheral edema. LOWER EXTREMITIES: 2+ pulses, warm, well-perfused. No calf tenderness. No peripheral edema. NEUROLOGICAL: Cranial nerves II-XII intact. Non-verbal. Gait not observed. PSYCHIATRIC: Restless, at baseline SKIN: Warm, dry, normal turgor, no rashes. Stage 4 pressure ulcer 4cm to R- scapula with eschar, serous sanguineous drainage lesions noted, normal capillary refill. CBC, BMP 10/08/17 06:00 10/08/17 06:00 ASSESSMENT/PLAN: This is a 86 y/o woman with a PMHx of Dementia, Aspiration Pneumonia, Decubitus. Admitted for Severe Sepsis secondary to UTI, Pneumonia. Problem List - Problem (1) Sepsis Assessment/Plan: - Continue IV abx. - ID follow up appreciated. Code(s): A41.9 - SEPSIS, UNSPECIFIED ORGANISM Qualifiers: Sepsis type: sepsis due to unspecified organism Qualified Code(s): A41.9 - Sepsis, unspecified organism (2) Pneumonia Assessment/Plan: - Continue current management. Code(s): J18.9 - PNEUMONIA, UNSPECIFIED ORGANISM Qualifiers: Pneumonia type: due to unspecified organism Laterality: left Lung location: lower lobe of lung Qualified Code(s): J18.1 - Lobar pneumonia, unspecified organism 3) #Hypercarbic/Hypoxic Respiratory failure BIPAP as needed Pulmonary follow up (4) UTI (urinary tract infection) Assessment/Plan: - Urine Cultures-negative - Continue Zosyn - Monitor vitals Code(s): N39.0 - URINARY TRACT INFECTION, SITE NOT SPECIFIED Qualifiers: Urinary tract infection type: acute cystitis Hematuria presence: without hematuria Qualified Code(s): N30.00 - Acute cystitis without hematuria (5) Elevated troponin I level Assessment/Plan: - Likely secondary to Sepsis - Continue cardiac monitoring - Serial Enzymes - EKG- lateral ST changes - Cardiology Consulted - Asa Code(s): R74.8 - ABNORMAL LEVELS OF OTHER SERUM ENZYMES (6) Dementia Assessment/Plan: - Continue to monitor and treat accordingly - Fall Precautions Code(s): F03.90 - UNSPECIFIED DEMENTIA WITHOUT BEHAVIORAL DISTURBANCE Qualifiers: Dementia type: Alzheimer's disease Alzheimer's disease onset: unspecified onset Dementia behavioral disturbance: without behavioral disturbance Qualified Code(s): G30.9 - Alzheimer's disease, unspecified; F02.80 - Dementia in other diseases classified elsewhere without behavioral disturbance; F02.80 - Dementia in other diseases classified elsewhere without behavioral disturbance; F02.80 - Dementia in other diseases classified elsewhere without behavioral disturbance (7) DVT prophylaxis Assessment/Plan: - SCDs - Heparin SQ Code(s): [id number] - 8) Hypernatremia/Hypokalemia. - Replete. - Neprology follow up appreciated.
[2017-10-08] MEDS: CHLORHEXIDINE GLUCONATE 4% CLEANSER FOR DECOLONIZATION TP SCH (21:27)
[2017-10-09] MEDS: ALBUTEROL SO4 2.5/IPRATROPIUM 0.5 INH SOL 3 ML VIAL.NEB. NEB SCH ×4 (00:05→18:32)
[2017-10-09] MEDS: WATER IVPB SCH ×3 (00:20→13:26)
[2017-10-09] MEDS: DEXTROSE 5% IVPB SCH ×3 (00:20→13:26)
[2017-10-09] MEDS: POTASSIUM CHLORIDE IVPB SCH ×3 (00:20→13:26)
[2017-10-09] MEDS: PIPERACILLIN/TAZOB 3.375 GM 3.375 GM in DEXTROSE 5%-WATER - 50 ML IVPB SCH ×3 (01:53→17:55)
[2017-10-09] MEDS: HEPARIN NA (PORCINE) 5,000 UNITS/ML 1ML VIAL SQ SCH ×3 (06:03→22:05)
[2017-10-09 07:12] LABS: BASOPHIL 0.2 % (0-2.0); EOSINOPHIL 1.6 % (0-4.5); MCH 26.2 pg (25.7-33.7); MCHC 31.7 g/dl (32.0-36.0); MEAN CELL VOLUME 82.7 fl (80-96); MEAN PLT VOLUME 8.4 fl (7.5-11.1); NEUTROPHILS 82.3 % (42.8-82.8); PLATELET COUNT 334 K/MM3 (134-434); RDW 15.4 % (11.6-15.6); WHITE BLOOD COUNT 13.4 K/mm3 (4.0-10.0)
[2017-10-09 07:43] LABS: ALBUMIN 1.6 g/dl (3.4-5.0); ALK PHOS 63 U/L (45-117); ANION GAP 6 (8-16); BILIRUBIN,TOTAL 0.5 mg/dL (0.2-1.0); CO2 35 mmol/L (21-32); GLUCOSE,RANDOM 142 mg/dL (74-106); MAGNESIUM 1.6 mg/dL (1.8-2.4); PHOSPHOROUS 2.8 mg/dL (2.5-4.9); SGOT/AST 11 U/L (15-37); SGPT/ALT 14 U/L (12-78); TOT PROT 5.2 g/dl (6.4-8.2)
[2017-10-09] MEDS: NYSTATIN POWDER 100,000 UNITS/GM - 15 GM TOPICAL POWDER TP SCH (09:47)
[2017-10-09] MEDS: COLLAGENASE CLOSTRIDIUM HIST. 30 GRAMS TUBE TP SCH (09:47)
--- NOTE | 2017-10-09 09:58 | CONSULT ---
Admitting History and Physical - Primary Care Physician PCP: Rasheed Singh - Admission History of Present Illness: This is a 86 y/o woman with a past medical history of Dementia, Aspiration Pneumonia, Decubitus Ulcer, presented to the ED from the [facility] with SOB. Pt was on a pureed diet and thickenened liquids at [facility]. (nectar vs honey- both documented in transfer summary). A/P Acute Hypercapneic Respiratory Failure UTI Infected Sacral Decubitus Ulcer Sepsis Lactic Acidosis Acute Kidney Injury improving Dementia History Source: Medical Record Limitations to Obtaining History: Clinical Condition, Dementia - Smoking History Smoking history: Unknown if ever smoked - Alcohol/Substance Use Hx Alcohol Use: No History - Admission Reason For Visit: DEMENTIA/SEPSIS/PNEUMONIA - Diagnostics X-ray: Report Reviewed - General Mental Status: Awake and Alert (Establishes/maintains eye contact,Smiles,holds my hand.) Attention: Intact - Hearing Hearing: Normal Speech Evaluation - Communication Primary Language: ROMANIAN (Welsh/per roommate) Communication: Yes: Non-Communicable (occasional phonation) Oral Expression Ability: Yes: Non-Verbal - Speech Characteristics Voice Phonatory-based Quality: Yes: Normal - Language/Verbal Expression Functional Communication Status: Yes: Severely Impaired - Swallow Evaluation/Bedside Assessment Current Nutritional Intake: NPO Oral Secretions: Yes: WFL Dentition: Yes: Edentulous Facial Symmetry at Rest: Symmetrical Labial Seal: WFL Oral Prep Time: Increased A-P Transit: Impaired Timing of Swallow: Delayed Coughing/Throat Clear: No Recommendations - Speech Evaluation, Impression/Plan Impression: Readily accepted several trials of puree with no swallow palpated. I suspect impaired oropharngeal transfer. With honey thick liquid trials, viscosity improved transfer of the bolus with delayed but fairly brisk swallow generated. No cough but phonation and slightly increased RR. - Dysphagia Impressions/Plan Swallowing Skills: Impaired Dysphagia Impressions: Risk of Aspiration, Ongoing Evaluation *Silent aspiration: cannot be R/O at bedside Recommendations: Modified Barium Swallow
--- NOTE | 2017-10-09 11:12 | PN ---
Progress Note, Physician History of Present Illness: HPI: Briefly Ms Cardoza is an 86 year old woman with pmhx of dementia, aspiration pna, decubitus ulcer who presented to ED today via EMS for < 24Hr hrs of shortness of breath. She is a resident of [facility] and came in with her son. She in unable to provide hx. She is frail appearing and apparently has been in declining health. EMS felt she was in heart failure and she received 2 SL nitro prior to arrival in ED. In ED pt was febrile to 100, tachy w/HR 125, dyspneic with RR in high 20s, BP 76/56. She had significant wob and acute hypercapneic resp failure (7.25/54), started on Bilevel NIV. Labs otherwise notable for wbc 30K 10% bandemia, lactate 8, Cr 1.4 unk baseline. UA w / pyuria WBC 600+, +LE/N. CXR revealed perihilar congestion and possible RLL infiltrate vs atelectesis. EKG with some lateral ST changes, trop was 0.09, BNP 1200. She was started on Vancomycin, LVQ and Pip/Geovany for UTI and HAP, was given some gentle fluid resuscitation. Repeat abg pending. - Current Medication List Current Medications: Active Medications Albuterol/Ipratropium (Duoneb -) 1 amp NEB QIDR [facility] Last Admin: 10/09/17 06:41 Dose: 1 amp Chlorhexidine Gluconate (Hibiclens For Decolonization -) 1 applic TP HS KEVIN Last Admin: 10/08/17 21:27 Dose: Not Given Collagenase (Santyl -) 1 applic TP DAILY KEVIN Last Admin: 10/09/17 09:47 Dose: 1 applic Heparin Sodium (Porcine) (Heparin -) 5,000 unit SQ TID KEVIN Last Admin: 10/09/17 06:03 Dose: 5,000 unit Piperacillin Sod/Tazobactam (Sod 3.375 gm/ Dextrose) 50 mls @ 100 mls/hr IVPB Q8H-IV KEVIN Last Admin: 10/09/17 09:46 Dose: 100 mls/hr Potassium Chloride 40 meq/ (Dextrose) 1,000 mls @ 75 mls/hr IVPB Q13H KEVIN Last Admin: 10/09/17 01:52 Dose: 75 mls/hr Nystatin (Nystop Powder -) 1 applic TP DAILY KEVIN Last Admin: 10/09/17 09:47 Dose: 1 applic - Objective Vital Signs: Vital Signs Temperature 98.3 F 10/09/17 08:00 Pulse Rate 84 10/09/17 05:56 Respiratory Rate 20 10/09/17 05:56 Blood Pressure 110/59 10/09/17 05:56 O2 Sat by Pulse Oximetry (%) 94 L 10/08/17 21:20 Eyes: Yes: WNL, Conjunctiva Clear, EOM Intact HENT: Yes: WNL, Atraumatic, Normocephalic Neck: Yes: WNL, Supple, Trachea Midline Cardiovascular: Yes: WNL, Regular Rate and Rhythm Respiratory: Yes: Diminished, On Venti-Mask Gastrointestinal: Yes: WNL, Normal Bowel Sounds Genitourinary: Yes: WNL Musculoskeletal: Yes: WNL Extremities: Yes: WNL Edema: No Integumentary: Yes: WNL Neurological: Yes: WNL, Alert, Oriented ...Motor Strength: WNL Psychiatric: Yes: WNL Labs: CBC, BMP 10/09/17 06:00 10/09/17 06:00 INR, PTT INR 1.05 (0.82-1.09) 10/01/17 19:30 Problem List - Problems (1) DVT prophylaxis Code(s): [id number] - (2) Dementia Code(s): F03.90 - UNSPECIFIED DEMENTIA WITHOUT BEHAVIORAL DISTURBANCE Qualifiers: Dementia type: Alzheimer's disease Alzheimer's disease onset: unspecified onset Dementia behavioral disturbance: without behavioral disturbance Qualified Code(s): G30.9 - Alzheimer's disease, unspecified; F02.80 - Dementia in other diseases classified elsewhere without behavioral disturbance; F02.80 - Dementia in other diseases classified elsewhere without behavioral disturbance; F02.80 - Dementia in other diseases classified elsewhere without behavioral disturbance (3) Elevated troponin I level Code(s): R74.8 - ABNORMAL LEVELS OF OTHER SERUM ENZYMES (4) Infected pressure ulcer Code(s): L89.90 - PRESSURE ULCER OF UNSPECIFIED SITE, UNSPECIFIED STAGE; L08.9 - LOCAL INFECTION OF THE SKIN AND SUBCUTANEOUS TISSUE, UNSP (5) Pneumonia Code(s): J18.9 - PNEUMONIA, UNSPECIFIED ORGANISM Qualifiers: Pneumonia type: due to unspecified organism Laterality: left Lung location: lower lobe of lung Qualified Code(s): J18.1 - Lobar pneumonia, unspecified organism (6) Sepsis Code(s): A41.9 - SEPSIS, UNSPECIFIED ORGANISM Qualifiers: Sepsis type: sepsis due to unspecified organism Qualified Code(s): A41.9 - Sepsis, unspecified organism (7) UTI (urinary tract infection) Code(s): N39.0 - URINARY TRACT INFECTION, SITE NOT SPECIFIED Qualifiers: Urinary tract infection type: acute cystitis Hematuria presence: without hematuria Qualified Code(s): N30.00 - Acute cystitis without hematuria Assessment/Plan imp; Acute Hypercapneic Respiratory Failure UTI Infected Sacral Decubitus Ulcer Sepsis Lactic Acidosis Acute Kidney Injury Dementia elevated bnp and tni's - most likely due to sepsis Plan abx cont supportive rx will f/u
--- NOTE | 2017-10-09 12:22 | PN ---
Progress Note (short form) - Note Progress Note: PULMONARY ON V/M O2 BIPAP HS/PRN PALE/AFEBRILE SCATTERED RHONCHI S1S2 BS+ NO EDEMA LABS/MEDS/NOTES/IMAGES REVIEWED Sepsis Lactic acidosis UTI PNA Aspiration Stage III Decubitus Ulcer Leukocytosis Advanced Dementia (+) troponin ABX per ID IVF Local wound care NIPPV DNR/DNI Alaina CONNORS MD
--- NOTE | 2017-10-09 13:04 | PN ---
Progress Note (short form) - Note Progress Note: Renal follow up for Hypernatremia Pt seen and examined at the bedside awake on facemask O2 going to swallow eval no overnight events was on IVF but IV line became infiltrated Vital Signs Temperature 98.3 F 10/09/17 08:00 Pulse Rate 84 10/09/17 05:56 Respiratory Rate 20 10/09/17 05:56 Blood Pressure 110/59 10/09/17 05:56 O2 Sat by Pulse Oximetry (%) 94 L 10/08/17 21:20 Intake & Output 10/06/17 10/07/17 10/08/17 10/09/17 23:59 23:59 23:59 23:59 Intake Total 2400 1200 700 900 Balance 2400 1200 700 900 Weight 63.049 kg NAD awake RRR + rhochi at lung bases soft NT/ND Abd No LE edema CBC, BMP 10/09/17 06:00 10/09/17 06:00 Current Medications Albuterol/Ipratropium (Duoneb -) 1 amp NEB QIDR KEVIN Last Admin: 10/09/17 06:41 Dose: 1 amp Chlorhexidine Gluconate (Hibiclens For Decolonization -) 1 applic TP HS KEVIN Last Admin: 10/08/17 21:27 Dose: Not Given Collagenase (Santyl -) 1 applic TP DAILY KEVIN Last Admin: 10/09/17 09:47 Dose: 1 applic Heparin Sodium (Porcine) (Heparin -) 5,000 unit SQ TID KEVIN Last Admin: 10/09/17 06:03 Dose: 5,000 unit Piperacillin Sod/Tazobactam (Sod 3.375 gm/ Dextrose) 50 mls @ 100 mls/hr IVPB Q8H-IV KEVIN Last Admin: 10/09/17 09:46 Dose: 100 mls/hr Potassium Chloride 40 meq/ (Dextrose) 1,000 mls @ 75 mls/hr IVPB Q13H KEVIN Last Admin: 10/09/17 01:52 Dose: 75 mls/hr Nystatin (Nystop Powder -) 1 applic TP DAILY [facility] Last Admin: 10/09/17 09:47 Dose: 1 applic 86 year old woman with Dementia who is non-verbal and resident at [place], Hx of aspiration PNA who presented with SOB/Increased RR and found to have UTI and infected sacral decubitis ulcers with LEA and hypernatremia. #Hypernatremia serum na improving will continue D5W as tolerated if pt required some IV nutrition can consider starting clinamix #Acute Renal Failure now resolved trend BUN/Cr #Hypercarbic/Hypoxic Respiratory failure BIPAP as needed Pulmonary follow up #UTI/Scaral Decubitis ulcers continue Abx as per ID #Dementia supportive care #Hypokalemia to get KCl wit IVF Thank you will follow David Ellis DO
--- NOTE | 2017-10-09 13:18 | PN ---
Progress Note (short form) - Note Progress Note: resting comfortably more alert on ventimask for MBS today Vital Signs Period Temp Pulse Resp BP Sys/Vega Pulse Ox Last 24 Hr 97.9 F-100 F 76-84 20-20 110-124/55-62 94-94 cor-rrr lungs decreased bs at bases abd soft,nt ext no edema CBC, BMP 10/09/17 06:00 10/09/17 06:00 imp/reccd sepsis uti infected stage 3 ulcer on upper back pneumonia dnr/dni zosyn day #7 d/c antibiotics in next 24 to 48 hours wbc improving Problem List - Problems (1) Sepsis Code(s): A41.9 - SEPSIS, UNSPECIFIED ORGANISM Qualifiers: Sepsis type: sepsis due to unspecified organism Qualified Code(s): A41.9 - Sepsis, unspecified organism (2) UTI (urinary tract infection) Code(s): N39.0 - URINARY TRACT INFECTION, SITE NOT SPECIFIED Qualifiers: Urinary tract infection type: acute cystitis Hematuria presence: without hematuria Qualified Code(s): N30.00 - Acute cystitis without hematuria (3) Infected pressure ulcer Code(s): L89.90 - PRESSURE ULCER OF UNSPECIFIED SITE, UNSPECIFIED STAGE; L08.9 - LOCAL INFECTION OF THE SKIN AND SUBCUTANEOUS TISSUE, UNSP (4) Elevated troponin I level Code(s): R74.8 - ABNORMAL LEVELS OF OTHER SERUM ENZYMES (5) Dementia Code(s): F03.90 - UNSPECIFIED DEMENTIA WITHOUT BEHAVIORAL DISTURBANCE Qualifiers: Dementia type: Alzheimer's disease Alzheimer's disease onset: unspecified onset Dementia behavioral disturbance: without behavioral disturbance Qualified Code(s): G30.9 - Alzheimer's disease, unspecified; F02.80 - Dementia in other diseases classified elsewhere without behavioral disturbance; F02.80 - Dementia in other diseases classified elsewhere without behavioral disturbance; F02.80 - Dementia in other diseases classified elsewhere without behavioral disturbance
--- NOTE | 2017-10-09 14:15 | PN ---
Progress Note (short form) - Note Progress Note: Patient seen and examined. Slightly more awake as compared to yesterday. Had MBS. Discussed with son the results of MBS and discussed in detail about the options. Afebrile. Not in respiratory distress Recent Travel: None PAST MEDICAL HISTORY: Dementia Aspirated Pneumonia Decubitus Ulcer PAST SURGICAL HISTORY: Unknown Social History: Smoking: Unknown Alcohol: None Drugs: None Resides in a SNF Family History: Non-contributory Allergies No Known Allergies Allergy (Verified 10/01/17 20:02) HOME MEDICATIONS: Home Medications Medication Instructions Recorded Acetaminophen 325 mg PO DAILY 10/01/17 Aspirin [ASA -] 81 mg PO DAILY 10/01/17 Vitamin B Comp W-C [Nephro-Milly -] 1 tablet PO DAILY 10/01/17 Vitamin B Comp W-C [Nephro-Milly -] 1 tablet PO DAILY 10/01/17 REVIEW OF SYSTEMS Unable to obtain- Dementia hx CONSTITUTIONAL: Absent: fever, chills, diaphoresis, generalized weakness, malaise, loss of appetite, weight change HEENT: Absent: rhinorrhea, nasal congestion, throat pain, throat swelling, difficulty swallowing, mouth swelling, ear pain, eye pain, visual changes CARDIOVASCULAR: Absent: chest pain, syncope, palpitations, irregular heart rate, lightheadedness , peripheral edema RESPIRATORY: Absent: cough, shortness of breath, dyspnea with exertion, orthopnea, wheezing, stridor, hemoptysis GASTROINTESTINAL: Absent: abdominal pain, abdominal distension, nausea, vomiting, diarrhea, constipation, melena, hematochezia GENITOURINARY: Absent: dysuria, frequency, urgency, hesitancy, hematuria, flank pain, genital pain MUSCULOSKELETAL: Absent: myalgia, arthralgia, joint swelling, back pain, neck pain SKIN: Absent: rash, itching, pallor HEMATOLOGIC/IMMUNOLOGIC: Absent: easy bleeding, easy bruising, lymphadenopathy, frequent infections ENDOCRINE: Absent: unexplained weight gain, unexplained weight loss, heat intolerance, cold intolerance NEUROLOGIC: Absent: headache, focal weakness or paresthesias, dizziness, unsteady gait, seizure, mental status changes, bladder or bowel incontinence PSYCHIATRIC: Absent: anxiety, depression, suicidal or homicidal ideation, hallucinations. PHYSICAL EXAMINATION Vital Signs Period Temp Pulse Resp BP Sys/Vega Pulse Ox Last 24 Hr 98.2 F-100 F 76-84 20-20 110-124/59-62 94-98 GENERAL: Awake, alert to baseline, in no acute distress. HEAD: Normal with no signs of trauma. EYES: Pupils equal, round and reactive to light, sclera anicteric, conjunctiva clear. No lid lag. EARS, NOSE, THROAT: Ears normal, nares patent, oropharynx clear without exudates. Dry mucous membranes. NECK: Normal range of motion, supple without lymphadenopathy, JVD, or masses. LUNGS: On Bipap, +coarse crackles scattered diffusely, diminished RLL HEART: Regular rate and rhythm, normal S1 and S2 without murmur, rub or gallop. ABDOMEN: Soft, nontender, not distended, normoactive bowel sounds, no guarding, no rebound, no masses. No hepatomegaly or splenomegaly. MUSCULOSKELETAL: Normal range of motion at all joints. No bony deformities or tenderness. No CVA tenderness. UPPER EXTREMITIES: 2+ pulses, warm, well-perfused. No cyanosis. No clubbing. No peripheral edema. LOWER EXTREMITIES: 2+ pulses, warm, well-perfused. No calf tenderness. No peripheral edema. NEUROLOGICAL: Cranial nerves II-XII intact. Non-verbal. Gait not observed. PSYCHIATRIC: Restless, at baseline SKIN: Warm, dry, normal turgor, no rashes. Stage 4 pressure ulcer 4cm to R- scapula with eschar, serous sanguineous drainage lesions noted, normal capillary refill. CBC, BMP 10/09/17 06:00 10/09/17 06:00 ASSESSMENT/PLAN: This is a 86 y/o woman with a PMHx of Dementia, Aspiration Pneumonia, Decubitus. Admitted for Severe Sepsis secondary to UTI, Pneumonia. Problem List - Problem (1) Sepsis Assessment/Plan: - Continue IV abx. Another 24-48 hrs. - ID follow up appreciated. Code(s): A41.9 - SEPSIS, UNSPECIFIED ORGANISM Qualifiers: Sepsis type: sepsis due to unspecified organism Qualified Code(s): A41.9 - Sepsis, unspecified organism (2) Pneumonia Assessment/Plan: - Continue current management. Code(s): J18.9 - PNEUMONIA, UNSPECIFIED ORGANISM Qualifiers: Pneumonia type: due to unspecified organism Laterality: left Lung location: lower lobe of lung Qualified Code(s): J18.1 - Lobar pneumonia, unspecified organism 3) #Hypercarbic/Hypoxic Respiratory failure BIPAP as needed Pulmonary follow up (4) UTI (urinary tract infection) Assessment/Plan: - Urine Cultures-negative - Continue Zosyn - Monitor vitals Code(s): N39.0 - URINARY TRACT INFECTION, SITE NOT SPECIFIED Qualifiers: Urinary tract infection type: acute cystitis Hematuria presence: without hematuria Qualified Code(s): N30.00 - Acute cystitis without hematuria (5) Elevated troponin I level Assessment/Plan: - Likely secondary to Sepsis - Continue cardiac monitoring - Serial Enzymes - EKG- lateral ST changes - Cardiology Consulted - Asa Code(s): R74.8 - ABNORMAL LEVELS OF OTHER SERUM ENZYMES (6) Dementia Assessment/Plan: - Continue to monitor and treat accordingly - Fall Precautions Code(s): F03.90 - UNSPECIFIED DEMENTIA WITHOUT BEHAVIORAL DISTURBANCE Qualifiers: Dementia type: Alzheimer's disease Alzheimer's disease onset: unspecified onset Dementia behavioral disturbance: without behavioral disturbance Qualified Code(s): G30.9 - Alzheimer's disease, unspecified; F02.80 - Dementia in other diseases classified elsewhere without behavioral disturbance; F02.80 - Dementia in other diseases classified elsewhere without behavioral disturbance; F02.80 - Dementia in other diseases classified elsewhere without behavioral disturbance (7) DVT prophylaxis Assessment/Plan: - SCDs - Heparin SQ Code(s): [id number] - 8) Hypernatremia/Hypokalemia. - Continue IV fluids. - Neprology follow up appreciated. MBS results noted. Dysphagia puree diet mixed with ensure for honey thick consistency. If she aspirates on this then will have to discuss with family about alternate means of intake. Options including PEG discussed with son present by the bedside.
[2017-10-09] MEDS ORDERED: PT OWN MED DRAWER 7, Y5N ONE (17:49)
[2017-10-09] MEDS: CHLORHEXIDINE GLUCONATE 4% CLEANSER FOR DECOLONIZATION TP SCH (22:06)
[2017-10-10] MEDS: POTASSIUM CHLORIDE IVPB SCH (02:00)
[2017-10-10] MEDS: WATER IVPB SCH (02:00)
[2017-10-10] MEDS: DEXTROSE 5% IVPB SCH (02:00)
[2017-10-10] MEDS ORDERED: PT OWN MED DRAWER 7, Y5N ONE ×3 (02:15→17:27)
[2017-10-10] MEDS: PIPERACILLIN/TAZOB 3.375 GM 3.375 GM in DEXTROSE 5%-WATER - 50 ML IVPB SCH ×3 (02:24→18:12)
[2017-10-10] MEDS: HEPARIN NA (PORCINE) 5,000 UNITS/ML 1ML VIAL SQ SCH ×3 (05:34→21:41)
[2017-10-10] MEDS: ALBUTEROL SO4 2.5/IPRATROPIUM 0.5 INH SOL 3 ML VIAL.NEB. NEB SCH ×5 (07:08→23:00)
[2017-10-10 07:26] LABS: ALBUMIN 1.6 g/dl (3.4-5.0); ANION GAP 5 (8-16); CALCIUM 7.2 mg/dL (8.5-10.1); CO2 34 mmol/L (21-32); GLUCOSE,RANDOM 122 mg/dL (74-106)
[2017-10-10 07:30] LABS: ALK PHOS 64 U/L (45-117); BILIRUBIN,TOTAL 0.6 mg/dL (0.2-1.0); CREATININE 0.9 mg/dL (0.55-1.02); SGOT/AST 13 U/L (15-37); SGPT/ALT 14 U/L (12-78); TOT PROT 5.4 g/dl (6.4-8.2)
[2017-10-10 08:14] LABS: BASOPHIL 0.2 % (0-2.0); EOSINOPHIL 1.9 % (0-4.5); MCH 27.3 pg (25.7-33.7); MCHC 32.9 g/dl (32.0-36.0); MEAN CELL VOLUME 82.7 fl (80-96); MEAN PLT VOLUME 8.5 fl (7.5-11.1); NEUTROPHILS 82.8 % (42.8-82.8); PLATELET COUNT 345 K/MM3 (134-434); RDW 15.4 % (11.6-15.6); WHITE BLOOD COUNT 13.2 K/mm3 (4.0-10.0)
[2017-10-10] MEDS: COLLAGENASE CLOSTRIDIUM HIST. 30 GRAMS TUBE TP SCH (09:53)
[2017-10-10] MEDS: NYSTATIN POWDER 100,000 UNITS/GM - 15 GM TOPICAL POWDER TP SCH (09:54)
--- NOTE | 2017-10-10 10:13 | PN ---
Progress Note (short form) - Note Progress Note: PULMONARY ON n/c O2 SAT GREATER THAN 90% BIPAP HS/PRN PALE/AFEBRILE SCATTERED RHONCHI S1S2 BS+ NO EDEMA LABS/MEDS/NOTES/IMAGES REVIEWED Sepsis Lactic acidosis UTI PNA Aspiration Stage III Decubitus Ulcer Leukocytosis Advanced Dementia (+) troponin ABX per ID IVF Local wound care NIPPV DNR/DNI R WAYLON SOLITARIO
--- NOTE | 2017-10-10 11:35 | PN ---
Progress Note (short form) - Note Progress Note: Renal follow up for Hypernatremia Pt seen and examined at the bedside no overnight events on IVF Vital Signs Temperature 98.9 F 10/10/17 05:41 Pulse Rate 81 10/10/17 05:41 Respiratory Rate 20 10/10/17 05:41 Blood Pressure 114/56 10/10/17 05:41 O2 Sat by Pulse Oximetry (%) 94 L 10/09/17 22:00 Intake & Output 10/07/17 10/08/17 10/09/17 10/10/17 23:59 23:59 23:59 23:59 Intake Total 1463 301 6218 470 Output Total 1 Balance 7615 204 2817 470 Weight 63.049 kg NAD awake RRR + rhochi at lung bases soft NT/ND Abd No LE edema CBC, BMP 10/10/17 07:30 10/10/17 06:25 Current Medications Albuterol/Ipratropium (Duoneb -) 1 amp NEB QIDR KEVIN Last Admin: 10/10/17 07:08 Dose: 1 amp Collagenase (Santyl -) 1 applic TP DAILY KEVIN Last Admin: 10/10/17 09:53 Dose: 1 applic Heparin Sodium (Porcine) (Heparin -) 5,000 unit SQ TID KEVIN Last Admin: 10/10/17 05:34 Dose: 5,000 unit Piperacillin Sod/Tazobactam (Sod 3.375 gm/ Dextrose) 50 mls @ 100 mls/hr IVPB Q8H-IV KEVIN Last Admin: 10/10/17 09:53 Dose: 100 mls/hr Potassium Chloride 40 meq/ (Amino Acids) 1,020 mls @ 42 mls/hr IVPB Q12H KEVIN Nystatin (Nystop Powder -) 1 applic TP DAILY KEVIN Last Admin: 10/10/17 09:54 Dose: 1 applic 86 year old woman with Dementia who is non-verbal and resident at [place], Hx of aspiration PNA who presented with SOB/Increased RR and found to have UTI and infected sacral decubitis ulcers with LEA and hypernatremia. #Hypernatremia Na now WNL on D5W change IVF to clinamix at row rate #Acute Renal Failure now resolved trend BUN/Cr #Hypercarbic/Hypoxic Respiratory failure BIPAP as needed Pulmonary follow up #UTI/Scaral Decubitis ulcers continue Abx as per ID #Dementia supportive care #Hypokalemia to get KCl wit IVF Thank you will follow David Ellis DO
[2017-10-10] MEDS: POTASSIUM CHLORIDE 40 MEQ in AMINO ACIDS 4.25%/D5W 1,000 ML IVPB SCH ×2 (12:56→21:41)
--- NOTE | 2017-10-10 17:20 | PN ---
Progress Note (short form) - Note Progress Note: Subjective: Patient was seen and examined at the bedside, she is resting comfortably Now febrile to 100.4 rectal. F/u chest x-ray, UA, urine culture, blood cultures Current Medications Generic Name Dose Route Start Last Admin Trade Name Freq PRN Reason Stop Dose Admin Albuterol/Ipratropium 1 amp 10/07/17 10:45 10/10/17 11:35 Duoneb - NEB 1 amp QIDR KEVIN Administration Collagenase 1 applic 10/04/17 10:00 10/10/17 09:53 Santyl - TP 1 applic DAILY KEVIN Administration Heparin Sodium (Porcine) 5,000 unit 10/03/17 22:00 10/10/17 13:06 Heparin - SQ 5,000 unit TID KEVIN Administration Piperacillin Sod/Tazobactam 50 mls @ 100 mls/hr 10/04/17 02:00 10/10/17 09:53 Sod 3.375 gm/ Dextrose IVPB 100 mls/hr Q8H-IV KEVIN Administration Potassium Chloride 40 meq/ 1,020 mls @ 42 mls/hr 10/10/17 09:30 10/10/17 12: 56 Amino Acids IVPB 42 mls/hr Q12H KEVIN Administration Nystatin 1 applic 10/04/17 10:00 10/10/17 09:54 Nystop Powder - TP 1 applic DAILY KEVIN Administration Objective: Vital Signs Period Temp Pulse Resp BP Sys/Vega Pulse Ox Last 24 Hr 97.8 F-99.1 F 65-96 20-20 86-156/52-93 94-97 Physical Exam: General: Pale, NAD Lungs: Scattered rhonchi throughout Heart: RRR, S1S2 Abd: Soft, non-distended. Normoactive bowel sounds Ext: no edema Skin: Stage 3 pressure to right scapula CBCD WBC 13.2 K/mm3 (4.0-10.0) H 10/10/17 07:30 RBC 3.60 M/mm3 (3.60-5.2) 10/10/17 07:30 Hgb 9.8 GM/dL (10.7-15.3) L 10/10/17 07:30 Hct 29.8 % (32.4-45.2) L 10/10/17 07:30 MCV 82.7 fl (80-96) 10/10/17 07:30 MCHC 32.9 g/dl (32.0-36.0) 10/10/17 07:30 RDW 15.4 % (11.6-15.6) 10/10/17 07:30 Plt Count 345 K/MM3 (134-434) 10/10/17 07:30 MPV 8.5 fl (7.5-11.1) 10/10/17 07:30 CMP Sodium 142 mmol/L (136-145) 10/10/17 06:25 Potassium 3.3 mmol/L (3.5-5.1) L 10/10/17 06:25 Chloride 103 mmol/L (98-107) 10/10/17 06:25 Carbon Dioxide 34 mmol/L (21-32) H 10/10/17 06:25 Anion Gap 5 (8-16) L 10/10/17 06:25 BUN 12 mg/dL (7-18) 10/10/17 06:25 Creatinine 0.9 mg/dL (0.55-1.02) 10/10/17 06:25 Creat Clearance w eGFR 59.23 (>60) 10/10/17 06:25 Random Glucose 122 mg/dL (74-106) H 10/10/17 06:25 Calcium 7.2 mg/dL (8.5-10.1) L 10/10/17 06:25 Total Bilirubin 0.6 mg/dL (0.2-1.0) 10/10/17 06:25 AST 13 U/L (15-37) L 10/10/17 06:25 ALT 14 U/L (12-78) 10/10/17 06:25 Alkaline Phosphatase 64 U/L (45-117) 10/10/17 06:25 Total Protein 5.4 g/dl (6.4-8.2) L 10/10/17 06:25 Albumin 1.6 g/dl (3.4-5.0) L 10/10/17 06:25 CARDIAC ENZYMES Creatine Kinase 149 IU/L (26-192) 10/02/17 09:00 Troponin I 0.11 ng/ml (0.00-0.05) H 10/02/17 09:00 Microbiology 10/01/17 19:50 Blood - Peripheral Venous Blood Culture - Final NO GROWTH AFTER 5 DAYS INCUBATION 10/01/17 19:50 Blood - Peripheral Venous Blood Culture - Final NO GROWTH AFTER 5 DAYS INCUBATION 10/02/17 00:15 Nasopharyngeal Swab Respiratory Virus (PCR) - Final 10/01/17 22:00 Urine - Urine - Catheterized Urine Culture - Final NO GROWTH OBTAINED 10/02/17 08:40 Urine For Antigen Detection Legionella Antigen - Final 10/02/17 08:40 Urine For Antigen Detection Streptococcus pneumoniae Antigen (M - Final 10/02/17 00:15 Nasopharyngeal Swab Influenza Types A,B Antigen ([facility]) - Final 10/02/17 00:15 Nasopharyngeal Swab - Final Assessment: This is an 86 year old male with PMHx of dementia, aspiration pneumonia, decubitus ulcers, who presented to [facility] with shortness of breath and was found to be in acute respiratory distress. Plan: 1) ID: Severe sepsis 2/2 infected stage 3 ulcer, UTI, pneumonia - Tmax 100.4 today - F/u UA, urine culture, blood cultures, chest x-ray - Continue Zosyn day #7 - Appreciate ID consult 2) Acute hypercapnic/hypoxic respiratory failure - NIPPV as needed - Chest PT - Duoneb - Appreciate pulmonary consult 3) Elevated troponins - Per cardiology, likely 2/2 sepsis - Peaked 0.13, trended down on 10/02 - Appreciate cardiology consult 4) LEA - Resolved 5) Hypernatremia - Resolved 6) F/E/N: - Hyperkalemia: repleted in IV fluids today - Monitor electrolytes - Dysphagia pureed diet when more alert and awake 7) Prophylaxis: - Heparin 5,000u sq bid 8) Dispo: - Requires continued inpatient care CODE STATUS: DNR/DNI Visit type - Emergency Visit Emergency Visit: Yes ED Registration Date: 10/01/17 Care time: The patient presented to the Emergency Department on the above date and was hospitalized for further evaluation of their emergent condition. - New Patient This patient is new to me today: Yes Date on this admission: 10/10/17 - Critical Care Critical Care patient: No
[2017-10-10] MEDS ORDERED: ACETAMINOPHEN 650 MG SUPP.RECT PR ONE (22:30)
[2017-10-11] MEDS ORDERED: SODIUM CHLORIDE 500 ML IV STA (01:03)
[2017-10-11] MEDS ORDERED: IBUPROFEN 800 MG/8 ML IJ IVPB ONE (01:31)
[2017-10-11 01:33] LABS: URINE APPEARANCE SLCLOUDY; URINE BILIRUBIN NEGATIVE (NEGATIVE); URINE BLOOD NEGATIVE (NEGATIVE); URINE COLOR YELLOW; URINE GLUCOSE (UA) NEGATIVE (NEGATIVE); URINE KETONE NEGATIVE (NEGATIVE); URINE NITRITE NEGATIVE (NEGATIVE); URINE PROTEIN NEGATIVE (NEGATIVE); URINE UROBILINOGEN NEGATIVE mg/dL (0.2-1.0)
[2017-10-11] MEDS ORDERED: PT OWN MED DRAWER 7, Y5N ONE ×2 (02:12→09:32)
[2017-10-11] MEDS: PIPERACILLIN/TAZOB 3.375 GM 3.375 GM in DEXTROSE 5%-WATER - 50 ML IVPB SCH ×2 (03:06→09:34)
[2017-10-11] MEDS: ALBUTEROL SO4 2.5/IPRATROPIUM 0.5 INH SOL 3 ML VIAL.NEB. NEB SCH ×3 (05:58→18:21)
[2017-10-11 06:58] LABS: BASOPHIL 0.1 % (0-2.0); MCH 26.4 pg (25.7-33.7); MCHC 31.9 g/dl (32.0-36.0); MEAN CELL VOLUME 82.8 fl (80-96); MEAN PLT VOLUME 8.2 fl (7.5-11.1); PLATELET COUNT 296 K/MM3 (134-434); RDW 15.6 % (11.6-15.6); WHITE BLOOD COUNT 12.2 K/mm3 (4.0-10.0)
[2017-10-11 07:31] LABS: ALBUMIN 1.3 g/dl (3.4-5.0); ALK PHOS 56 U/L (45-117); ANION GAP 6 (8-16); BILIRUBIN,TOTAL 0.5 mg/dL (0.2-1.0); CO2 31 mmol/L (21-32); CREATININE 0.8 mg/dL (0.55-1.02); GLUCOSE,RANDOM 109 mg/dL (74-106); MAGNESIUM 1.6 mg/dL (1.8-2.4); PHOSPHOROUS 2.3 mg/dL (2.5-4.9); SGOT/AST 11 U/L (15-37); SGPT/ALT 12 U/L (12-78); TOT PROT 4.8 g/dl (6.4-8.2)
[2017-10-11] MEDS: POTASSIUM CHLORIDE 40 MEQ in AMINO ACIDS 4.25%/D5W 1,000 ML IVPB SCH ×2 (09:30→21:35)
[2017-10-11] MEDS: HEPARIN NA (PORCINE) 5,000 UNITS/ML 1ML VIAL SQ SCH ×2 (09:34→22:17)
[2017-10-11] MEDS: COLLAGENASE CLOSTRIDIUM HIST. 30 GRAMS TUBE TP SCH (09:35)
[2017-10-11] MEDS: NYSTATIN POWDER 100,000 UNITS/GM - 15 GM TOPICAL POWDER TP SCH (09:35)
[2017-10-11 09:51] LABS: URINE LEUK ESTERASE Negative (NEGATIVE)
--- NOTE | 2017-10-11 10:38 | PN ---
Progress Note (short form) - Note Progress Note: PULMONARY ON N/C O2 SAT GREATER THAN 90% BIPAP HS/PRN PALE/AFEBRILE SCATTERED RHONCHI S1S2 BS+ NO EDEMA LABS/MEDS/NOTES/IMAGES REVIEWED Sepsis Lactic acidosis UTI PNA Aspiration Stage III Decubitus Ulcer Leukocytosis Advanced Dementia ABX per ID IVF Local wound care NIPPV DNR/DNI Alaina CONNORS MD
[2017-10-11] MEDS ORDERED: MAGNESIUM SULF 50% (8.12 MEQ/2 ML-1 GM VIAL) IVPB ONE (12:00)
--- NOTE | 2017-10-11 12:24 | PN ---
Progress Note (short form) - Note Progress Note: resting comfortably now being fed pureed food fever last pm now resolved no diarrhea Vital Signs Period Temp Pulse Resp BP Sys/Vega Pulse Ox Last 24 Hr 98 F-101.2 F 65-84 18-24 86-120/47-75 95-99 cor-rrr lungs decreased bs at bases abd soft,nt ext no edema ulcer on back unchanged CBC, BMP 10/11/17 06:00 10/11/17 06:00 cultures sent imp/reccd sepsis uti infected stage 3 ulcer on upper back pneumonia dnr/dni ?aspiration-now npo again only new event is that she is being fed now day #9 zosyn would d/c antibiotics and observe Problem List - Problems (1) Sepsis Code(s): A41.9 - SEPSIS, UNSPECIFIED ORGANISM Qualifiers: Sepsis type: sepsis due to unspecified organism Qualified Code(s): A41.9 - Sepsis, unspecified organism (2) UTI (urinary tract infection) Code(s): N39.0 - URINARY TRACT INFECTION, SITE NOT SPECIFIED Qualifiers: Urinary tract infection type: acute cystitis Hematuria presence: without hematuria Qualified Code(s): N30.00 - Acute cystitis without hematuria (3) Infected pressure ulcer Code(s): L89.90 - PRESSURE ULCER OF UNSPECIFIED SITE, UNSPECIFIED STAGE; L08.9 - LOCAL INFECTION OF THE SKIN AND SUBCUTANEOUS TISSUE, UNSP (4) Elevated troponin I level Code(s): R74.8 - ABNORMAL LEVELS OF OTHER SERUM ENZYMES (5) Dementia Code(s): F03.90 - UNSPECIFIED DEMENTIA WITHOUT BEHAVIORAL DISTURBANCE Qualifiers: Dementia type: Alzheimer's disease Alzheimer's disease onset: unspecified onset Dementia behavioral disturbance: without behavioral disturbance Qualified Code(s): G30.9 - Alzheimer's disease, unspecified; F02.80 - Dementia in other diseases classified elsewhere without behavioral disturbance; F02.80 - Dementia in other diseases classified elsewhere without behavioral disturbance; F02.80 - Dementia in other diseases classified elsewhere without behavioral disturbance
[2017-10-11] MEDS ORDERED: MAGNESIUM SULF 50% (8.12 MEQ/2 ML-1 GM VIAL) ONE (13:18)
--- NOTE | 2017-10-11 13:45 | PN ---
Progress Note (short form) - Note Progress Note: Medical coverage for Dr. Singh Subjective: Patient was seen and examined at the bedside, she is on ventimask Tmax 101.2 overnight Current Medications Generic Name Dose Route Start Last Admin Trade Name Braulio PRN Reason Stop Dose Admin Albuterol/Ipratropium 1 amp 10/07/17 10:45 10/11/17 10:45 Duoneb - NEB 1 amp QIDR KEVIN Administration Collagenase 1 applic 10/04/17 10:00 10/11/17 09:35 Santyl - TP 1 applic DAILY KEVIN Administration Heparin Sodium (Porcine) 5,000 unit 10/10/17 22:00 10/11/17 09:34 Heparin - SQ 5,000 unit BID KEVIN Administration Piperacillin Sod/Tazobactam 50 mls @ 100 mls/hr 10/04/17 02:00 10/11/17 09:34 Sod 3.375 gm/ Dextrose IVPB 100 mls/hr Q8H-IV KEVIN Administration Potassium Chloride 40 meq/ 1,020 mls @ 42 mls/hr 10/10/17 09:30 10/11/17 09: 30 Amino Acids IVPB 42 mls/hr Q12H KEVIN Administration Nystatin 1 applic 10/04/17 10:00 10/11/17 09:35 Nystop Powder - TP 1 applic DAILY KEVIN Administration Potassium Phos/Sodium Phos 1 packet 10/11/17 11:30 10/11/17 13:52 Phos-Nak Packet - PO 10/11/17 22:01 Not Given TID KEVIN Objective: Vital Signs Period Temp Pulse Resp BP Sys/Vega Pulse Ox Last 24 Hr 97.6 F-101.2 F 67-87 18-24 93-120/47-75 95-99 Physical Exam: General: Pale, NAD Lungs: Scattered rhonchi throughout Heart: RRR, S1S2 Abd: Soft, non-distended. Normoactive bowel sounds Ext: no edema Skin: Pressure to right scapula CBCD WBC 12.2 K/mm3 (4.0-10.0) H 10/11/17 06:00 RBC 3.34 M/mm3 (3.60-5.2) L 10/11/17 06:00 Hgb 8.8 GM/dL (10.7-15.3) L D 10/11/17 06:00 Hct 27.6 % (32.4-45.2) L 10/11/17 06:00 MCV 82.8 fl (80-96) 10/11/17 06:00 MCHC 31.9 g/dl (32.0-36.0) L 10/11/17 06:00 RDW 15.6 % (11.6-15.6) 10/11/17 06:00 Plt Count 296 K/MM3 (134-434) 10/11/17 06:00 MPV 8.2 fl (7.5-11.1) 10/11/17 06:00 CMP Sodium 140 mmol/L (136-145) 10/11/17 06:00 Potassium 3.6 mmol/L (3.5-5.1) 10/11/17 06:00 Chloride 103 mmol/L (98-107) 10/11/17 06:00 Carbon Dioxide 31 mmol/L (21-32) 10/11/17 06:00 Anion Gap 6 (8-16) L 10/11/17 06:00 BUN 15 mg/dL (7-18) D 10/11/17 06:00 Creatinine 0.8 mg/dL (0.55-1.02) 10/11/17 06:00 Creat Clearance w eGFR > 60 (>60) 10/11/17 06:00 Random Glucose 109 mg/dL (74-106) H 10/11/17 06:00 Calcium 7.0 mg/dL (8.5-10.1) L 10/11/17 06:00 Total Bilirubin 0.5 mg/dL (0.2-1.0) 10/11/17 06:00 AST 11 U/L (15-37) L 10/11/17 06:00 ALT 12 U/L (12-78) 10/11/17 06:00 Alkaline Phosphatase 56 U/L (45-117) 10/11/17 06:00 Total Protein 4.8 g/dl (6.4-8.2) L 10/11/17 06:00 Albumin 1.3 g/dl (3.4-5.0) L 10/11/17 06:00 CARDIAC ENZYMES Creatine Kinase 149 IU/L (26-192) 10/02/17 09:00 Troponin I 0.11 ng/ml (0.00-0.05) H 10/02/17 09:00 Microbiology 10/01/17 19:50 Blood - Peripheral Venous Blood Culture - Final NO GROWTH AFTER 5 DAYS INCUBATION 10/01/17 19:50 Blood - Peripheral Venous Blood Culture - Final NO GROWTH AFTER 5 DAYS INCUBATION 10/02/17 00:15 Nasopharyngeal Swab Respiratory Virus (PCR) - Final 10/01/17 22:00 Urine - Urine - Catheterized Urine Culture - Final NO GROWTH OBTAINED 10/02/17 08:40 Urine For Antigen Detection Legionella Antigen - Final 10/02/17 08:40 Urine For Antigen Detection Streptococcus pneumoniae Antigen (M - Final 10/02/17 00:15 Nasopharyngeal Swab Influenza Types A,B Antigen ([facility]UY) - Final 10/02/17 00:15 Nasopharyngeal Swab - Final Assessment: This is an 86 year old male with PMHx of dementia, aspiration pneumonia, decubitus ulcers, who presented to [facility] with shortness of breath and was found to be in acute respiratory distress. Plan: 1) ID: Severe sepsis 2/2 infected stage 3 ulcer, UTI, pneumonia - Tmax 101.2 overnight - UA negative - F/u urine culture, blood cultures - Chest X-ray reviewed - Continue Zosyn per ID - Patient with coughing while eating, will make NPO and reconsult for swallow evaluation - Appreciate ID consult 2) Acute hypercapnic/hypoxic respiratory failure - NIPPV as needed - Chest PT - Duoneb - Appreciate pulmonary consult 3) Elevated troponins - Per cardiology, likely 2/2 sepsis - Peaked 0.13, trended down on 10/02 - Appreciate cardiology consult 4) LEA - Resolved 5) Hypernatremia - Resolved 6) F/E/N: - Hyperkalemia: resolved - Hypomagnesemia: replete - Hypophosphatemia - Monitor electrolytes - Continue Clinimix - Will make NPO 7) Prophylaxis: - Heparin 5,000u sq bid 8) Dispo: - Requires continued inpatient care CODE STATUS: DNR/DNI Visit type - Emergency Visit Emergency Visit: Yes ED Registration Date: 10/01/17 Care time: The patient presented to the Emergency Department on the above date and was hospitalized for further evaluation of their emergent condition. - New Patient This patient is new to me today: No - Critical Care Critical Care patient: No
[2017-10-11] MEDS: NAPH,MB-DB/K PH,MBDB POWDER PACKET PO SCH ×3 (13:52→22:17)
--- NOTE | 2017-10-11 15:13 | PN ---
Progress Note (short form) - Note Progress Note: Renal follow up for Hypernatremia Pt seen and examined at the bedside on facemask O2 no overnight events Vital Signs Temperature 97.6 F 10/11/17 13:33 Pulse Rate 87 10/11/17 13:33 Respiratory Rate 20 10/11/17 13:33 Blood Pressure 93/47 10/11/17 13:33 O2 Sat by Pulse Oximetry (%) 95 10/11/17 10:40 Intake & Output 10/08/17 10/09/17 10/10/17 10/11/17 23:59 23:59 23:59 23:59 Intake Total 700 1998 145 2354 Output Total 1 Balance 700 8223 409 6397 NAD awake RRR + rhochi at lung bases soft NT/ND Abd No LE edema CBC, BMP 10/11/17 06:00 10/11/17 06:00 Current Medications Albuterol/Ipratropium (Duoneb -) 1 amp NEB QIDR REPLACED BY [facility] Last Admin: 10/11/17 10:45 Dose: 1 amp Collagenase (Santyl -) 1 applic TP DAILY REPLACED BY [facility] Last Admin: 10/11/17 09:35 Dose: 1 applic Heparin Sodium (Porcine) (Heparin -) 5,000 unit SQ BID KEVIN Last Admin: 10/11/17 09:34 Dose: 5,000 unit Potassium Chloride 40 meq/ (Amino Acids) 1,020 mls @ 42 mls/hr IVPB Q12H REPLACED BY [facility] Last Admin: 10/11/17 09:30 Dose: 42 mls/hr Nystatin (Nystop Powder -) 1 applic TP DAILY REPLACED BY [facility] Last Admin: 10/11/17 09:35 Dose: 1 applic Potassium Phos/Sodium Phos (Phos-Nak Packet -) 1 packet PO TID KEVIN Stop: 10/11/17 22:01 Last Admin: 10/11/17 13:52 Dose: Not Given 86 year old woman with Dementia who is non-verbal and resident at [place], Hx of aspiration PNA who presented with SOB/Increased RR and found to have UTI and infected sacral decubitis ulcers with LEA and hypernatremia. #Hypernatremia Improved with IVF hydration continue clinamex at present rate #Hypercarbic/Hypoxic Respiratory failure BIPAP as needed Pulmonary follow up #Cough/Aspiration risk pt now NPO Check CXR #Hypophosphatemia/Hypomagnesemia Given IV Mg Sulfate To get K-Phos IV as well Trend levels daily David Ellis DO
--- NOTE | 2017-10-11 15:37 | PN ---
Progress Note, MEDICAL STAFF ASSISTANT - Note Progress Note: Selected Entries 10/10/17 10/10/17 10/10/17 01:08 05:41 09:25 Breakfast 25% Lunch Supper Temperature 98.9 F 98.9 F 10/10/17 10/10/17 10/10/17 10:00 13:39 19:03 Breakfast Lunch 50% Supper 75% Temperature 98.3 F 99.1 F 100.4 F H 10/10/17 10/11/17 10/11/17 23:00 01:12 05:00 Breakfast Lunch Supper Temperature 100.5 F H 101.2 F H 98.8 F 10/11/17 10/11/17 10/11/17 09:35 09:44 13:33 Breakfast 75% Lunch 50% Supper Temperature 98 F 97.6 F Laboratory Tests 10/08/17 10/10/17 10/11/17 06:00 07:30 06:00 WBC 14.1 H 13.2 H 12.2 H Made NPO after lunch due to responsive coughing intermittently. No coughing during lunch.Staff aware of providing all foods/liquids to honey thick liquid on tsp only. CXR unchanged. Right lung clear. Multiple factors could be resulting in elevated temperature with Hx of aspiration PNA,and aspiration on honey thick from cup, UTI and infected sacral decubitis ulcers. Swallowing reassessed.No overt signs of aspiration. Readily accepted 10 tsp of honey thick liquid on tsp without vocal wetness, and delayed but fairly brisk swallow. Pt did silently aspirate on honey thick from cup, eliminated but still at risk from tsp. Pt is DNR/DNI. Option of PO trial with modified diet and compensatory strategies vs comfort care vs TF. Consider trial again with use of compensatory strategies. Careful monitoring of pulmonary status. Palliative care consult.
[2017-10-11] MEDS: ACETAMINOPHEN 1000 MG/100 ML VIAL (NON FORMULARY) IVPB PRN (18:56)
[2017-10-12] MEDS: ALBUTEROL SO4 2.5/IPRATROPIUM 0.5 INH SOL 3 ML VIAL.NEB. NEB SCH ×2 (05:55)
[2017-10-12 08:02] LABS: ANION GAP 6 (8-16); CALCIUM 7.3 mg/dL (8.5-10.1); CO2 31 mmol/L (21-32); GLUCOSE,RANDOM 102 mg/dL (74-106); MAGNESIUM 2.1 mg/dL (1.8-2.4)
[2017-10-12 08:04] LABS: CREATININE 0.8 mg/dL (0.55-1.02); PHOSPHOROUS 2.3 mg/dL (2.5-4.9)
[2017-10-12] MEDS ORDERED: PT OWN MED DRAWER 7, Y5N ONE (09:25)
--- NOTE | 2017-10-12 10:09 | PN ---
Progress Note, Physician History of Present Illness: Abx stopped yesterday, did have fever (101) yesterday early evening. So far cultures (blood, urine) negative. Patient non-verbal, unable to give any history. - Current Medication List Current Medications: Active Medications Acetaminophen (Ofirmev Injection -) 1,000 mg IVPB Q6H PRN PRN Reason: FEVER OR PAIN Last Admin: 10/11/17 18:56 Dose: 1,000 mg Albuterol/Ipratropium (Duoneb -) 1 amp NEB QIDR [facility] Last Admin: 10/12/17 05:55 Dose: 1 amp Collagenase (Santyl -) 1 applic TP DAILY [facility] Last Admin: 10/11/17 09:35 Dose: 1 applic Heparin Sodium (Porcine) (Heparin -) 5,000 unit SQ BID [facility] Last Admin: 10/11/17 22:17 Dose: 5,000 unit Potassium Chloride 40 meq/ (Amino Acids) 1,020 mls @ 42 mls/hr IVPB Q12H KEVIN Last Admin: 10/11/17 21:35 Dose: 42 mls/hr Nystatin (Nystop Powder -) 1 applic TP DAILY [facility] Last Admin: 10/11/17 09:35 Dose: 1 applic - Objective Vital Signs: Vital Signs Temperature 100.3 F H 10/12/17 07:09 Pulse Rate 82 10/12/17 05:54 Respiratory Rate 20 10/12/17 05:00 Blood Pressure 145/91 10/12/17 05:00 O2 Sat by Pulse Oximetry (%) 98 10/12/17 05:54 Constitutional: Yes: No Distress, Calm (, moans at times) Cardiovascular: Yes: Regular Rate and Rhythm, S1, S2. No: Murmur Respiratory: Yes: Regular, CTA Bilaterally. No: Rales, Rhonchi, Wheezes Gastrointestinal: Yes: Normal Bowel Sounds, Soft. No: Distention, Tenderness Extremities: Yes: Other (contracted extremities, sore on 2nd toe left foot) Edema: No Wound/Incision: Yes: Other (sacral ulcer) Labs: CBC, BMP 10/11/17 06:00 10/12/17 06:00 INR, PTT INR 1.05 (0.82-1.09) 10/01/17 19:30 Assessment/Plan Current Active Problems Aspiration pneumonia (Acute) DVT prophylaxis (Acute) Dementia (Acute) Elevated troponin I level (Acute) Hypernatremia (Acute) Hypokalemia (Acute) Infected pressure ulcer (Acute) Pneumonia (Acute) Respiratory failure (Acute) Sepsis (Acute) UTI (urinary tract infection) (Acute) --observe off abx (discussed with ID) -will reculture if spikes fever again
--- NOTE | 2017-10-12 10:11 | PN ---
Progress Note (short form) - Note Progress Note: ID Discussed with Dr So regarding low grade temps Currently off antibiotics Selected Entries 10/12/17 10/12/17 10/12/17 05:00 05:54 07:09 Temperature 100.3 F H Pulse Rate 82 Respiratory 20 Rate Blood Pressure 145/91 Microbiology 10/10/17 18:45 Blood - Peripheral Venous Blood Culture - Preliminary NO GROWTH OBTAINED AFTER 24 HOURS, INCUBATION TO CONTINUE FOR 4 DAYS. 10/10/17 18:40 Blood - Peripheral Venous Blood Culture - Preliminary NO GROWTH OBTAINED AFTER 24 HOURS, INCUBATION TO CONTINUE FOR 4 DAYS. 10/10/17 18:00 Urine - Urine - Catheterized Urine Culture - Preliminary Laboratory Tests 10/11/17 10/11/17 10/12/17 01:20 06:00 06:00 WBC 12.2 H Hgb 8.8 L D Hct 27.6 L Plt Count 296 BUN 15 Creatinine 0.8 Ur Leukocyte Esterase Negative Assessment Fever with multiple possible sources Rule out C diff infection Plan As discussed Observe off antibiotics Send stool C diff toxin Blood cultures over 101 Toni SOLITARIO Problem List - Problems (1) Infected pressure ulcer Code(s): L89.90 - PRESSURE ULCER OF UNSPECIFIED SITE, UNSPECIFIED STAGE; L08.9 - LOCAL INFECTION OF THE SKIN AND SUBCUTANEOUS TISSUE, UNSP (2) Pneumonia Code(s): J18.9 - PNEUMONIA, UNSPECIFIED ORGANISM Qualifiers: Qualified Code(s): J18.1 - Lobar pneumonia, unspecified organism (3) Sepsis Code(s): A41.9 - SEPSIS, UNSPECIFIED ORGANISM Qualifiers: Qualified Code(s): A41.9 - Sepsis, unspecified organism (4) UTI (urinary tract infection) Code(s): N39.0 - URINARY TRACT INFECTION, SITE NOT SPECIFIED Qualifiers: Qualified Code(s): N30.00 - Acute cystitis without hematuria
[2017-10-12] MEDS: COLLAGENASE CLOSTRIDIUM HIST. 30 GRAMS TUBE TP SCH (10:37)
[2017-10-12] MEDS: HEPARIN NA (PORCINE) 5,000 UNITS/ML 1ML VIAL SQ SCH ×2 (10:37→21:09)
[2017-10-12] MEDS: NYSTATIN POWDER 100,000 UNITS/GM - 15 GM TOPICAL POWDER TP SCH (10:37)
--- NOTE | 2017-10-12 11:01 | PN ---
Progress Note, Physician Chief Complaint: The patient seen in her room. Has loose BM. Continues to be febrile. ID notes noted. Clinimix infusing. History of Present Illness: 86 year old woman with Dementia who is non-verbal and resident at [place], Hx of aspiration PNA who presented with SOB/Increased RR and found to have UTI and infected sacral decubitis ulcers with LEA and hypernatremia. Serum Sodium improving - Current Medication List Current Medications: Active Medications Acetaminophen (Ofirmev Injection -) 1,000 mg IVPB Q6H PRN PRN Reason: FEVER OR PAIN Last Admin: 10/11/17 18:56 Dose: 1,000 mg Collagenase (Santyl -) 1 applic TP DAILY [facility] Last Admin: 10/12/17 10:37 Dose: 1 applic Heparin Sodium (Porcine) (Heparin -) 5,000 unit SQ BID [facility] Last Admin: 10/12/17 10:37 Dose: 5,000 unit Potassium Chloride 40 meq/ (Amino Acids) 1,020 mls @ 42 mls/hr IVPB Q12H [facility] Last Admin: 10/11/17 21:35 Dose: 42 mls/hr Nystatin (Nystop Powder -) 1 applic TP DAILY [facility] Last Admin: 10/12/17 10:37 Dose: 1 applic - Objective Vital Signs: Vital Signs Temperature 100.3 F H 10/12/17 07:09 Pulse Rate 82 10/12/17 05:54 Respiratory Rate 20 10/12/17 05:00 Blood Pressure 145/91 10/12/17 05:00 O2 Sat by Pulse Oximetry (%) 95 10/12/17 10:48 Constitutional: Yes: Calm, Pallor Eyes: Yes: Conjunctiva Clear HENT: Yes: Normocephalic Neck: Yes: Trachea Midline Cardiovascular: Yes: S1, S2 Respiratory: Yes: CTA Bilaterally Gastrointestinal: Yes: Normal Bowel Sounds, Soft Genitourinary: No: CVA Tenderness - Left, CVA Tenderness - Right Neurological: Yes: Confusion Psychiatric: No: Oriented Labs: CBC, BMP 10/11/17 06:00 10/12/17 06:00 INR, PTT INR 1.05 (0.82-1.09) 10/01/17 19:30 Problem List - Problems (1) Aspiration pneumonia Code(s): J69.0 - PNEUMONITIS DUE TO INHALATION OF FOOD AND VOMIT (2) Dementia Code(s): F03.90 - UNSPECIFIED DEMENTIA WITHOUT BEHAVIORAL DISTURBANCE Qualifiers: Dementia type: Alzheimer's disease Alzheimer's disease onset: unspecified onset Dementia behavioral disturbance: without behavioral disturbance Qualified Code(s): G30.9 - Alzheimer's disease, unspecified; F02.80 - Dementia in other diseases classified elsewhere without behavioral disturbance; F02.80 - Dementia in other diseases classified elsewhere without behavioral disturbance; F02.80 - Dementia in other diseases classified elsewhere without behavioral disturbance (3) Hypernatremia Code(s): E87.0 - HYPEROSMOLALITY AND HYPERNATREMIA (4) Pneumonia Code(s): J18.9 - PNEUMONIA, UNSPECIFIED ORGANISM Qualifiers: Pneumonia type: due to unspecified organism Laterality: left Lung location: lower lobe of lung Qualified Code(s): J18.1 - Lobar pneumonia, unspecified organism (5) Sepsis Code(s): A41.9 - SEPSIS, UNSPECIFIED ORGANISM Qualifiers: Sepsis type: sepsis due to unspecified organism Qualified Code(s): A41.9 - Sepsis, unspecified organism (6) UTI (urinary tract infection) Code(s): N39.0 - URINARY TRACT INFECTION, SITE NOT SPECIFIED Qualifiers: Urinary tract infection type: acute cystitis Hematuria presence: without hematuria Qualified Code(s): N30.00 - Acute cystitis without hematuria Assessment/Plan 86 year old woman with Dementia who is non-verbal and resident at [place] Hx of aspiration Pneumonia who presented with SOB/Increased RR and found to have UTI and infected sacral decubitis ulcers with LEA and hypernatremia. Hypernatremia Improved with IVF hydration Clinimix infusing. Oral intake slowly improving. Cough/Aspiration risk...IV Abx as per ID Hypophosphatemia. Received K Phos yesterday. Will repeat the dose today. Will continue the IV fluids as ordered. Randa Marcial MD
[2017-10-12] MEDS ORDERED: POTASSIUM PHOSPHATE 15 MM in DEXTROSE 5%-WATER - 250 ML IVPB ONE (11:06)
--- NOTE | 2017-10-12 11:10 | PN ---
Progress Note (short form) - Note Progress Note: Recurrent fever. Non-verbal. Breathing non-labored. Intake & Output 10/09/17 10/10/17 10/11/17 10/12/17 23:59 23:59 23:59 23:59 Intake Total 3281 910 6338 740 Output Total 1 Balance 6433 360 4355 740 Last Vital Signs Temp Pulse Resp BP Pulse Ox 100.3 F H 82 20 145/91 95 10/12/17 07:09 10/12/17 05:54 10/12/17 05:00 10/12/17 05:00 10/12/17 10:48 Active Medications Acetaminophen (Ofirmev Injection -) 1,000 mg IVPB Q6H PRN PRN Reason: FEVER OR PAIN Last Admin: 10/11/17 18:56 Dose: 1,000 mg Collagenase (Santyl -) 1 applic TP DAILY [facility] Last Admin: 10/12/17 10:37 Dose: 1 applic Heparin Sodium (Porcine) (Heparin -) 5,000 unit SQ BID [facility] Last Admin: 10/12/17 10:37 Dose: 5,000 unit Potassium Chloride 40 meq/ (Amino Acids) 1,020 mls @ 42 mls/hr IVPB Q12H [facility] Last Admin: 10/11/17 21:35 Dose: 42 mls/hr Potassium Phosphate 15 mm/ (Dextrose) 255 mls @ 62.5 mls/hr IVPB ONCE ONE Stop: 10/12/17 15:10 Nystatin (Nystop Powder -) 1 applic TP DAILY [facility] Last Admin: 10/12/17 10:37 Dose: 1 applic Constitutional: Yes: No Distress, non-verbal Cardiovascular: Yes: Regular Rate and Rhythm, S1, S2. No: Murmur Respiratory: Yes: Few scattered rhonchi Gastrointestinal: Yes: Normal Bowel Sounds, Soft. No: Distention, Tenderness Extremities: Yes: Other (contracted extremities, sore on 2nd toe left foot) Edema: No Wound/Incision: Yes: Other (sacral ulcer) Labs: Laboratory Results - last 24 hr 10/12/17 06:00 Sodium 138 Potassium 4.4 D Chloride 101 Carbon Dioxide 31 Anion Gap 6 L BUN 15 Creatinine 0.8 Random Glucose 102 Calcium 7.3 L Phosphorus 2.3 L Magnesium 2.1 D Assessment/Plan Aspiration pneumonia (Acute) DVT prophylaxis (Acute) Dementia (Acute) Elevated troponin I level (Acute) Hypernatremia (Acute) Hypokalemia (Acute) Infected pressure ulcer (Acute) Pneumonia (Acute) Respiratory failure (Acute) Sepsis (Acute) UTI (urinary tract infection) (Acute) Currently off ABX per ID O2 as needed Aspiration precautions DNR/DNI Dr Lovett
[2017-10-12] MEDS: POTASSIUM CHLORIDE 40 MEQ in AMINO ACIDS 4.25%/D5W 1,000 ML IVPB SCH ×2 (11:40→21:09)
[2017-10-13 07:44] LABS: BASOPHIL 0.1 % (0-2.0); EOSINOPHIL 1.9 % (0-4.5); MCH 26.6 pg (25.7-33.7); MCHC 32.4 g/dl (32.0-36.0); MEAN CELL VOLUME 82.1 fl (80-96); MEAN PLT VOLUME 8.4 fl (7.5-11.1); NEUTROPHILS 80.5 % (42.8-82.8); PLATELET COUNT 333 K/MM3 (134-434); RDW 15.7 % (11.6-15.6); WHITE BLOOD COUNT 14.8 K/mm3 (4.0-10.0)
[2017-10-13 08:30] LABS: ALBUMIN 1.5 g/dl (3.4-5.0); ALK PHOS 70 U/L (45-117); ANION GAP 5 (8-16); BILIRUBIN,TOTAL 0.3 mg/dL (0.2-1.0); CALCIUM 7.4 mg/dL (8.5-10.1); CO2 30 mmol/L (21-32); CREATININE 0.7 mg/dL (0.55-1.02); GLUCOSE,RANDOM 103 mg/dL (74-106); MAGNESIUM 2.1 mg/dL (1.8-2.4); PHOSPHOROUS 2.4 mg/dL (2.5-4.9); SGOT/AST 27 U/L (15-37); SGPT/ALT 21 U/L (12-78); TOT PROT 5.8 g/dl (6.4-8.2)
[2017-10-13] MEDS ORDERED: PT OWN MED DRAWER 7, Y5N ONE (09:16)
[2017-10-13] MEDS: HEPARIN NA (PORCINE) 5,000 UNITS/ML 1ML VIAL SQ SCH ×2 (09:17→21:20)
[2017-10-13] MEDS: NYSTATIN POWDER 100,000 UNITS/GM - 15 GM TOPICAL POWDER TP SCH (09:20)
[2017-10-13] MEDS: COLLAGENASE CLOSTRIDIUM HIST. 30 GRAMS TUBE TP SCH (09:20)
[2017-10-13] MEDS: POTASSIUM CHLORIDE 40 MEQ in AMINO ACIDS 4.25%/D5W 1,000 ML IVPB SCH ×3 (09:21→21:20)
--- NOTE | 2017-10-13 10:29 | PN ---
Progress Note, Physician History of Present Illness: continues to have elevated WBC, Tm 100 yesterday morning (99's since then). cont to get IV clinimix/ fluids for now. - Current Medication List Current Medications: Active Medications Acetaminophen (Ofirmev Injection -) 1,000 mg IVPB Q6H PRN PRN Reason: FEVER OR PAIN Last Admin: 10/11/17 18:56 Dose: 1,000 mg Collagenase (Santyl -) 1 applic TP DAILY [facility] Last Admin: 10/13/17 09:20 Dose: 1 applic Heparin Sodium (Porcine) (Heparin -) 5,000 unit SQ BID [facility] Last Admin: 10/13/17 09:17 Dose: 5,000 unit Potassium Chloride 40 meq/ (Amino Acids) 1,020 mls @ 42 mls/hr IVPB Q12H [facility] Last Admin: 10/13/17 09:21 Dose: Not Given Nystatin (Nystop Powder -) 1 applic TP DAILY [facility] Last Admin: 10/13/17 09:20 Dose: 1 applic - Objective Vital Signs: Vital Signs Temperature 99.8 F H 10/13/17 06:00 Pulse Rate 82 10/13/17 06:00 Respiratory Rate 20 10/13/17 06:00 Blood Pressure 108/53 10/13/17 06:00 O2 Sat by Pulse Oximetry (%) 93 L 10/13/17 06:22 Constitutional: Yes: No Distress Neck: Yes: Supple, Trachea Midline Cardiovascular: Yes: Regular Rate and Rhythm, S1, S2. No: Murmur Respiratory: Yes: Regular, CTA Bilaterally. No: Rales, Wheezes Gastrointestinal: Yes: Normal Bowel Sounds, Soft. No: Distention, Tenderness Musculoskeletal: Yes: Other (contracted lower extremities) Edema: No Neurological: Yes: Alert, Other (nonverbal) Labs: CBC, BMP 10/13/17 06:20 10/13/17 06:20 INR, PTT INR 1.05 (0.82-1.09) 10/01/17 19:30 Assessment/Plan Current Active Problems Aspiration pneumonia (Acute) DVT prophylaxis (Acute) Dementia (Acute) Elevated troponin I level (Acute) Hypernatremia (Acute) Hypokalemia (Acute) Infected pressure ulcer (Acute) Pneumonia (Acute) Respiratory failure (Acute) Sepsis (Acute) UTI (urinary tract infection) (Acute) -cont IV hydration/ clinimix while appetite increases (or else may have to consider alternative means of nutrition, i.e PEG tube) -observing for further fevers off abx (will need to be re-cultured if spikes)
--- NOTE | 2017-10-13 11:25 | PN ---
Progress Note (short form) - Note Progress Note: Recurrent low grade fever. Non-verbal. Breathing non-labored. Intake & Output 10/10/17 10/11/17 10/12/17 10/13/17 23:59 23:59 23:59 23:59 Intake Total 838 1498 890 504 Balance 838 1498 890 504 Last Vital Signs Temp Pulse Resp BP Pulse Ox 99.8 F H 82 20 108/53 98 10/13/17 06:00 10/13/17 06:00 10/13/17 06:00 10/13/17 06:00 10/13/17 10:30 Active Medications Acetaminophen (Ofirmev Injection -) 1,000 mg IVPB Q6H PRN PRN Reason: FEVER OR PAIN Last Admin: 10/11/17 18:56 Dose: 1,000 mg Collagenase (Santyl -) 1 applic TP DAILY [facility] Last Admin: 10/13/17 09:20 Dose: 1 applic Heparin Sodium (Porcine) (Heparin -) 5,000 unit SQ BID [facility] Last Admin: 10/13/17 09:17 Dose: 5,000 unit Potassium Chloride 40 meq/ (Amino Acids) 1,020 mls @ 42 mls/hr IVPB Q12H [facility] Last Admin: 10/13/17 09:21 Dose: Not Given Nystatin (Nystop Powder -) 1 applic TP DAILY [facility] Last Admin: 10/13/17 09:20 Dose: 1 applic Constitutional: Yes: No Distress, non-verbal Cardiovascular: Yes: Regular Rate and Rhythm, S1, S2. No: Murmur Respiratory: Yes: Few scattered rhonchi Gastrointestinal: Yes: Normal Bowel Sounds, Soft. No: Distention, Tenderness Extremities: Yes: Other (contracted extremities, sore on 2nd toe left foot) Edema: No Wound/Incision: Yes: Other (sacral ulcer) Labs: Laboratory Results - last 24 hr 10/13/17 10/13/17 06:20 06:20 WBC 14.8 H RBC 3.58 L Hgb 9.5 L Hct 29.4 L MCV 82.1 MCH 26.6 MCHC 32.4 RDW 15.7 H Plt Count 333 MPV 8.4 Neutrophils % 80.5 Lymphocytes % 11.3 Monocytes % 6.2 Eosinophils % 1.9 Basophils % 0.1 Sodium 136 Potassium 4.9 Chloride 101 Carbon Dioxide 30 Anion Gap 5 L BUN 17 Creatinine 0.7 Creat Clearance w eGFR > 60 Random Glucose 103 Calcium 7.4 L Phosphorus 2.4 L Magnesium 2.1 Total Bilirubin 0.3 D AST 27 D ALT 21 D Alkaline Phosphatase 70 D Total Protein 5.8 L D Albumin 1.5 L Assessment/Plan Aspiration pneumonia (Acute) DVT prophylaxis (Acute) Dementia (Acute) Elevated troponin I level (Acute) Hypernatremia (Acute) Hypokalemia (Acute) Infected pressure ulcer (Acute) Pneumonia (Acute) Respiratory failure (Acute) Sepsis (Acute) UTI (urinary tract infection) (Acute) Currently off ABX per ID O2 as needed Aspiration precautions DNR/DNI Dr Lovett
--- NOTE | 2017-10-13 16:14 | PN ---
Progress Note, Physician Chief Complaint: The patient seen in her room. Has loose BM. Continues to be febrile. Non Verbal History of Present Illness: 86 year old woman with Dementia who is non-verbal and resident at [place], Hx of aspiration PNA who presented with SOB/Increased RR and found to have UTI and infected sacral decubitis ulcers with LEA and hypernatremia. - Current Medication List Current Medications: Active Medications Acetaminophen (Ofirmev Injection -) 1,000 mg IVPB Q6H PRN PRN Reason: FEVER OR PAIN Last Admin: 10/11/17 18:56 Dose: 1,000 mg Collagenase (Santyl -) 1 applic TP DAILY [facility] Last Admin: 10/13/17 09:20 Dose: 1 applic Heparin Sodium (Porcine) (Heparin -) 5,000 unit SQ BID [facility] Last Admin: 10/13/17 09:17 Dose: 5,000 unit Potassium Chloride 40 meq/ (Amino Acids) 1,020 mls @ 42 mls/hr IVPB Q12H [facility] Last Admin: 10/13/17 14:24 Dose: 42 mls/hr Nystatin (Nystop Powder -) 1 applic TP DAILY [facility] Last Admin: 10/13/17 09:20 Dose: 1 applic - Objective Vital Signs: Vital Signs Temperature 98.0 F 10/13/17 14:14 Pulse Rate 85 10/13/17 14:14 Respiratory Rate 20 10/13/17 14:14 Blood Pressure 113/57 10/13/17 14:14 O2 Sat by Pulse Oximetry (%) 98 10/13/17 10:30 Constitutional: Yes: No Distress Eyes: Yes: Conjunctiva Clear HENT: Yes: Normocephalic Neck: Yes: Trachea Midline Cardiovascular: Yes: S1, S2 Respiratory: Yes: CTA Bilaterally Gastrointestinal: Yes: Normal Bowel Sounds, Soft Genitourinary: No: CVA Tenderness - Left, CVA Tenderness - Right Edema: No Labs: CBC, BMP 10/13/17 06:20 10/13/17 06:20 INR, PTT INR 1.05 (0.82-1.09) 10/01/17 19:30 Problem List - Problems (1) Aspiration pneumonia Code(s): J69.0 - PNEUMONITIS DUE TO INHALATION OF FOOD AND VOMIT (2) Dementia Code(s): F03.90 - UNSPECIFIED DEMENTIA WITHOUT BEHAVIORAL DISTURBANCE Qualifiers: Dementia type: Alzheimer's disease Alzheimer's disease onset: unspecified onset Dementia behavioral disturbance: without behavioral disturbance Qualified Code(s): G30.9 - Alzheimer's disease, unspecified; F02.80 - Dementia in other diseases classified elsewhere without behavioral disturbance; F02.80 - Dementia in other diseases classified elsewhere without behavioral disturbance; F02.80 - Dementia in other diseases classified elsewhere without behavioral disturbance (3) Hypernatremia Code(s): E87.0 - HYPEROSMOLALITY AND HYPERNATREMIA (4) Pneumonia Code(s): J18.9 - PNEUMONIA, UNSPECIFIED ORGANISM Qualifiers: Pneumonia type: due to unspecified organism Laterality: left Lung location: lower lobe of lung Qualified Code(s): J18.1 - Lobar pneumonia, unspecified organism (5) Sepsis Code(s): A41.9 - SEPSIS, UNSPECIFIED ORGANISM Qualifiers: Sepsis type: sepsis due to unspecified organism Qualified Code(s): A41.9 - Sepsis, unspecified organism (6) UTI (urinary tract infection) Code(s): N39.0 - URINARY TRACT INFECTION, SITE NOT SPECIFIED Qualifiers: Urinary tract infection type: acute cystitis Hematuria presence: without hematuria Qualified Code(s): N30.00 - Acute cystitis without hematuria Assessment/Plan 86 year old woman with Dementia who is non-verbal and resident at [place] Hx of aspiration Pneumonia who presented with SOB/Increased RR and found to have UTI and infected sacral decubitis ulcers with LEA and hypernatremia. Hypernatremia. Serum Sodium 136 Improved with IVF hydration The patient started on Dysphagia diet. Cough/Aspiration risk...IV Abx as per ID Hypophosphatemia. Serum Phos 2.4 today. Will monitor with you. Randa Marcial MD
[2017-10-14 07:37] LABS: BASOPHIL 0.4 % (0-2.0); EOSINOPHIL 1.8 % (0-4.5); MCH 26.2 pg (25.7-33.7); MCHC 31.9 g/dl (32.0-36.0); MEAN CELL VOLUME 82.3 fl (80-96); MEAN PLT VOLUME 8.1 fl (7.5-11.1); NEUTROPHILS 78.9 % (42.8-82.8); PLATELET COUNT 371 K/MM3 (134-434); RDW 15.5 % (11.6-15.6); WHITE BLOOD COUNT 13.7 K/mm3 (4.0-10.0)
[2017-10-14 08:22] LABS: ALBUMIN 1.6 g/dl (3.4-5.0); ANION GAP 5 (8-16); CALCIUM 7.6 mg/dL (8.5-10.1); CO2 30 mmol/L (21-32); CREATININE 0.9 mg/dL (0.55-1.02); GLUCOSE,RANDOM 106 mg/dL (74-106); SGOT/AST 32 U/L (15-37); SGPT/ALT 29 U/L (12-78)
[2017-10-14 08:24] LABS: ALK PHOS 70 U/L (45-117); BILIRUBIN,TOTAL 0.4 mg/dL (0.2-1.0); TOT PROT 6.1 g/dl (6.4-8.2)
[2017-10-14] MEDS: POTASSIUM CHLORIDE 40 MEQ in AMINO ACIDS 4.25%/D5W 1,000 ML IVPB SCH (09:31)
[2017-10-14] MEDS: HEPARIN NA (PORCINE) 5,000 UNITS/ML 1ML VIAL SQ SCH ×2 (09:31→21:32)
[2017-10-14] MEDS: COLLAGENASE CLOSTRIDIUM HIST. 30 GRAMS TUBE TP SCH (09:32)
[2017-10-14] MEDS: NYSTATIN POWDER 100,000 UNITS/GM - 15 GM TOPICAL POWDER TP SCH (09:32)
--- NOTE | 2017-10-14 10:00 | PN ---
Progress Note (short form) - Note Progress Note: Patient seen and examined. Events over the weekend noted. Continues to have low grade temperature. Much more alert, awake but non verbal. Had 75 % of her meals yesterday. Had 75 % of breakfast today. Occasional cough but tolerated PO well. On NC 4L/min during daytime with O2 sats 93-94%. BiPaP nighttime. Not in respiratory distress. - Current Medication List Current Medications: Active Medications Acetaminophen (Ofirmev Injection -) 1,000 mg IVPB Q6H PRN PRN Reason: FEVER OR PAIN Last Admin: 10/11/17 18:56 Dose: 1,000 mg Collagenase (Santyl -) 1 applic TP DAILY [facility] Last Admin: 10/13/17 09:20 Dose: 1 applic Heparin Sodium (Porcine) (Heparin -) 5,000 unit SQ BID [facility] Last Admin: 10/13/17 09:17 Dose: 5,000 unit Potassium Chloride 40 meq/ (Amino Acids) 1,020 mls @ 42 mls/hr IVPB Q12H [facility] Last Admin: 10/13/17 09:21 Dose: Not Given Nystatin (Nystop Powder -) 1 applic TP DAILY [facility] Last Admin: 10/13/17 09:20 Dose: 1 applic - Objective Vital Signs: Vital Signs Period Temp Pulse Resp BP Sys/Vega Pulse Ox Last 24 Hr 97.8 F-99.7 F 84-92 20-24 101-147/46-73 94-98 Constitutional: Yes: No Distress Neck: Yes: Supple, Trachea Midline Cardiovascular: Yes: Regular Rate and Rhythm, S1, S2. No: Murmur Respiratory: Yes: Regular, CTA Bilaterally. No: Rales, Wheezes Gastrointestinal: Yes: Normal Bowel Sounds, Soft. No: Distention, Tenderness Musculoskeletal: Yes: Other (contracted lower extremities) Edema: No Neurological: Yes: Alert, Other (nonverbal) Labs: CBC, BMP 10/14/17 06:05 10/14/17 06:05 Assessment/Plan Current Active Problems Aspiration pneumonia (Acute) DVT prophylaxis (Acute) Dementia (Acute) Elevated troponin I level (Acute) Hypernatremia (Acute) Hypokalemia (Acute) Infected pressure ulcer (Acute) Pneumonia (Acute) Respiratory failure (Acute) Sepsis (Acute) UTI (urinary tract infection) (Acute) - Improved appetite. Continue to encourage PO intake. -cont IV clinimix while appetite increases (or else may have to consider alternative means of nutrition, i.e PEG tube) -observing for further fevers off abx (will need to be re-cultured if spikes)
[2017-10-14] MEDS ORDERED: AMINO ACIDS 4.25%/D5W 1,000 ML IV SCH (12:30)
--- NOTE | 2017-10-14 13:35 | PN ---
Progress Note, Physician History of Present Illness: HPI: Briefly Ms Cardoza is an 86 year old woman with pmhx of dementia, aspiration pna, decubitus ulcer who presented to ED today via EMS for < 24Hr hrs of shortness of breath. She is a resident of [facility] and came in with her son. She in unable to provide hx. She is frail appearing and apparently has been in declining health. EMS felt she was in heart failure and she received 2 SL nitro prior to arrival in ED. In ED pt was febrile to 100, tachy w/HR 125, dyspneic with RR in high 20s, BP 76/56. She had significant wob and acute hypercapneic resp failure (7.25/54), started on Bilevel NIV. Labs otherwise notable for wbc 30K 10% bandemia, lactate 8, Cr 1.4 unk baseline. UA w / pyuria WBC 600+, +LE/N. CXR revealed perihilar congestion and possible RLL infiltrate vs atelectesis. EKG with some lateral ST changes, trop was 0.09, BNP 1200. She was started on Vancomycin, LVQ and Pip/Geovany for UTI and HAP, was given some gentle fluid resuscitation. Repeat abg pending. - Current Medication List Current Medications: Active Medications Acetaminophen (Ofirmev Injection -) 1,000 mg IVPB Q6H PRN PRN Reason: FEVER OR PAIN Last Admin: 10/11/17 18:56 Dose: 1,000 mg Collagenase (Santyl -) 1 applic TP DAILY [facility] Last Admin: 10/14/17 09:32 Dose: 1 applic Heparin Sodium (Porcine) (Heparin -) 5,000 unit SQ BID [facility] Last Admin: 10/14/17 09:31 Dose: 5,000 unit Amino Acids (Clinimix -) 1,000 mls @ 42 mls/hr IV Q24H [facility] Last Admin: 10/14/17 12:15 Dose: 42 mls/hr Nystatin (Nystop Powder -) 1 applic TP DAILY [facility] Last Admin: 10/14/17 09:32 Dose: 1 applic - Objective Vital Signs: Vital Signs Temperature 98.1 F 10/14/17 09:00 Pulse Rate 86 10/14/17 09:00 Respiratory Rate 20 10/14/17 09:00 Blood Pressure 108/52 10/14/17 09:00 O2 Sat by Pulse Oximetry (%) 93 L 10/14/17 09:00 Eyes: Yes: WNL, Conjunctiva Clear, EOM Intact HENT: Yes: WNL, Atraumatic, Normocephalic Neck: Yes: WNL, Supple, Trachea Midline Cardiovascular: Yes: WNL, Regular Rate and Rhythm Respiratory: Yes: WNL, Regular, CTA Bilaterally Gastrointestinal: Yes: WNL, Normal Bowel Sounds Genitourinary: Yes: WNL Musculoskeletal: Yes: WNL Extremities: Yes: WNL Edema: No Integumentary: Yes: WNL ...Motor Strength: WNL Psychiatric: Yes: WNL Labs: CBC, BMP 10/14/17 06:05 10/14/17 06:05 INR, PTT INR 1.05 (0.82-1.09) 10/01/17 19:30 Problem List - Problems (1) DVT prophylaxis Code(s): MOD0670 - (2) Dementia Code(s): F03.90 - UNSPECIFIED DEMENTIA WITHOUT BEHAVIORAL DISTURBANCE Qualifiers: Dementia type: Alzheimer's disease Alzheimer's disease onset: unspecified onset Dementia behavioral disturbance: without behavioral disturbance Qualified Code(s): G30.9 - Alzheimer's disease, unspecified; F02.80 - Dementia in other diseases classified elsewhere without behavioral disturbance; F02.80 - Dementia in other diseases classified elsewhere without behavioral disturbance; F02.80 - Dementia in other diseases classified elsewhere without behavioral disturbance (3) Elevated troponin I level Code(s): R74.8 - ABNORMAL LEVELS OF OTHER SERUM ENZYMES (4) Infected pressure ulcer Code(s): L89.90 - PRESSURE ULCER OF UNSPECIFIED SITE, UNSPECIFIED STAGE; L08.9 - LOCAL INFECTION OF THE SKIN AND SUBCUTANEOUS TISSUE, UNSP (5) Pneumonia Code(s): J18.9 - PNEUMONIA, UNSPECIFIED ORGANISM Qualifiers: Pneumonia type: due to unspecified organism Laterality: left Lung location: lower lobe of lung Qualified Code(s): J18.1 - Lobar pneumonia, unspecified organism (6) Sepsis Code(s): A41.9 - SEPSIS, UNSPECIFIED ORGANISM Qualifiers: Sepsis type: sepsis due to unspecified organism Qualified Code(s): A41.9 - Sepsis, unspecified organism (7) UTI (urinary tract infection) Code(s): N39.0 - URINARY TRACT INFECTION, SITE NOT SPECIFIED Qualifiers: Urinary tract infection type: acute cystitis Hematuria presence: without hematuria Qualified Code(s): N30.00 - Acute cystitis without hematuria Assessment/Plan imp; Acute Hypercapneic Respiratory Failure UTI Infected Sacral Decubitus Ulcer Sepsis Lactic Acidosis Acute Kidney Injury Dementia elevated bnp and tni's - most likely due to sepsis Plan abx cont supportive rx will f/u
--- NOTE | 2017-10-14 13:37 | PN ---
Progress Note, [employer] - Note Progress Note: Selected Entries 10/12/17 10/12/17 10/12/17 01:00 05:00 07:09 Breakfast Lunch Supper Temperature 99.7 F H 98 F 100.3 F H 10/12/17 10/12/17 10/12/17 09:34 10:00 14:23 Breakfast 75% Lunch 75% Supper Temperature 100.8 F H 98.1 F 10/12/17 10/12/17 10/12/17 18:00 18:38 20:29 Breakfast Lunch Supper 75% Temperature 98.5 F 99.7 F H 10/13/17 10/13/17 10/13/17 01:48 06:00 09:00 Breakfast Lunch Supper Temperature 99.8 F H 99.8 F H 99.5 F 10/13/17 10/13/17 10/13/17 09:28 14:14 18:00 Breakfast 75% Lunch 75% Supper Temperature 98.0 F 97.8 F 10/13/17 10/13/17 10/14/17 18:35 20:30 01:20 Breakfast Lunch Supper 75% Temperature 99.7 F H 98.5 F 10/14/17 10/14/17 10/14/17 05:55 09:00 09:39 Breakfast 75% Lunch Supper Temperature 99.2 F 98.1 F Laboratory Tests 10/11/17 10/13/17 10/14/17 06:00 06:20 06:05 WBC 12.2 H 14.8 H 13.7 H Tolerating diet well. Occasional cough but not reported to be more congested or SOB. Continue aspiration precautions/swallowing compensatory strategies. Encourage supplements b/n meals. Staff to continue to thin Ensure pudding with Ensure compact to honey thick liquid consistency.
--- NOTE | 2017-10-14 14:29 | PN ---
Progress Note (short form) - Note Progress Note: PULMONARY Somnolent but arousable. Not verbal. No fevers recorded. Last Vital Signs Temp Pulse Resp BP Pulse Ox 99.3 F 82 20 127/64 93 L 10/14/17 14:18 10/14/17 14:18 10/14/17 14:18 10/14/17 14:18 10/14/17 09:00 Gen: mildly tachypneic at rest Heart: RRR Lung: bilateral rhonchi Abd: soft, nontender Ext: no edema CBC, BMP 10/14/17 06:05 10/14/17 06:05 Active Medications Acetaminophen (Ofirmev Injection -) 1,000 mg IVPB Q6H PRN PRN Reason: FEVER OR PAIN Last Admin: 10/11/17 18:56 Dose: 1,000 mg Collagenase (Santyl -) 1 applic TP DAILY [facility] Last Admin: 10/14/17 09:32 Dose: 1 applic Heparin Sodium (Porcine) (Heparin -) 5,000 unit SQ BID [facility] Last Admin: 10/14/17 09:31 Dose: 5,000 unit Amino Acids (Clinimix -) 1,000 mls @ 42 mls/hr IV Q24H [facility] Last Admin: 10/14/17 12:15 Dose: 42 mls/hr Nystatin (Nystop Powder -) 1 applic TP DAILY [facility] Last Admin: 10/14/17 09:32 Dose: 1 applic A/P Acute Hypercapneic Respiratory Failure improving UTI Infected Sacral Decubitus Ulcer Sepsis Lactic Acidosis Acute Kidney Injury improving Dementia - wound care - monitor urine output, creatinine - continue BiPAP as needed for work of breathing - O2 to keep Spo2 >90% - aspiration precautions - DVT prophylaxis - continue discussions regarding goals of care
--- NOTE | 2017-10-14 14:52 | PN ---
Progress Note (short form) - Note Progress Note: resting comfortably tolerating diet no diarrhea Vital Signs Period Temp Pulse Resp BP Sys/Vega Pulse Ox Last 24 Hr 97.8 F-99.7 F 82-92 20-24 101-147/46-73 93-97 cor-rrr lungs decreased bs at bases abd soft,nt ext no edema CBC, BMP 10/14/17 06:05 10/14/17 06:05 Microbiology 10/10/17 18:00 Urine - Urine - Catheterized Urine Culture - Final Yeast Like Organism 10/10/17 18:45 Blood - Peripheral Venous Blood Culture - Preliminary NO GROWTH OBTAINED AFTER 72 HOURS, INCUBATION TO CONTINUE FOR 2 DAYS. 10/10/17 18:40 Blood - Peripheral Venous Blood Culture - Preliminary NO GROWTH OBTAINED AFTER 72 HOURS, INCUBATION TO CONTINUE FOR 2 DAYS. 10/01/17 19:50 Blood - Peripheral Venous Blood Culture - Final NO GROWTH AFTER 5 DAYS INCUBATION 10/01/17 19:50 Blood - Peripheral Venous Blood Culture - Final NO GROWTH AFTER 5 DAYS INCUBATION 10/02/17 00:15 Nasopharyngeal Swab Respiratory Virus (PCR) - Final 10/01/17 22:00 Urine - Urine - Catheterized Urine Culture - Final NO GROWTH OBTAINED 10/02/17 08:40 Urine For Antigen Detection Legionella Antigen - Final 10/02/17 08:40 Urine For Antigen Detection Streptococcus pneumoniae Antigen (M - Final 10/02/17 00:15 Nasopharyngeal Swab Influenza Types A,B Antigen ([facility]) - Final 10/02/17 00:15 Nasopharyngeal Swab - Final imp/reccd sepsis uti infected stage 3 ulcer on upper back pneumonia dnr/dni stable off antibiotics please call back if needed Problem List - Problems (1) Sepsis Code(s): A41.9 - SEPSIS, UNSPECIFIED ORGANISM Qualifiers: Sepsis type: sepsis due to unspecified organism Qualified Code(s): A41.9 - Sepsis, unspecified organism (2) UTI (urinary tract infection) Code(s): N39.0 - URINARY TRACT INFECTION, SITE NOT SPECIFIED Qualifiers: Urinary tract infection type: acute cystitis Hematuria presence: without hematuria Qualified Code(s): N30.00 - Acute cystitis without hematuria (3) Infected pressure ulcer Code(s): L89.90 - PRESSURE ULCER OF UNSPECIFIED SITE, UNSPECIFIED STAGE; L08.9 - LOCAL INFECTION OF THE SKIN AND SUBCUTANEOUS TISSUE, UNSP (4) Elevated troponin I level Code(s): R74.8 - ABNORMAL LEVELS OF OTHER SERUM ENZYMES (5) Dementia Code(s): F03.90 - UNSPECIFIED DEMENTIA WITHOUT BEHAVIORAL DISTURBANCE Qualifiers: Dementia type: Alzheimer's disease Alzheimer's disease onset: unspecified onset Dementia behavioral disturbance: without behavioral disturbance Qualified Code(s): G30.9 - Alzheimer's disease, unspecified; F02.80 - Dementia in other diseases classified elsewhere without behavioral disturbance; F02.80 - Dementia in other diseases classified elsewhere without behavioral disturbance; F02.80 - Dementia in other diseases classified elsewhere without behavioral disturbance
[2017-10-14 17:08] LABS: BASOPHIL 0.3 % (0-2.0); EOSINOPHIL 1.6 % (0-4.5); MCH 26.9 pg (25.7-33.7); MCHC 32.5 g/dl (32.0-36.0); MEAN CELL VOLUME 82.7 fl (80-96); MEAN PLT VOLUME 8.7 fl (7.5-11.1); NEUTROPHILS 76.1 % (42.8-82.8); PLATELET COUNT 389 K/MM3 (134-434); RDW 15.6 % (11.6-15.6)
[2017-10-14] MEDS: ACETAMINOPHEN 1000 MG/100 ML VIAL (NON FORMULARY) IVPB PRN (21:33)
[2017-10-15 07:36] LABS: ANION GAP 4 (8-16); CALCIUM 8.1 mg/dL (8.5-10.1); CO2 33 mmol/L (21-32); CREATININE 0.8 mg/dL (0.55-1.02); GLUCOSE,RANDOM 102 mg/dL (74-106); MAGNESIUM 2.3 mg/dL (1.8-2.4); PHOSPHOROUS 3.7 mg/dL (2.5-4.9)
[2017-10-15] MEDS: HEPARIN NA (PORCINE) 5,000 UNITS/ML 1ML VIAL SQ SCH ×2 (09:29→22:08)
[2017-10-15] MEDS: COLLAGENASE CLOSTRIDIUM HIST. 30 GRAMS TUBE TP SCH (09:29)
[2017-10-15] MEDS: NYSTATIN POWDER 100,000 UNITS/GM - 15 GM TOPICAL POWDER TP SCH (09:29)
--- NOTE | 2017-10-15 11:11 | PN ---
Progress Note (short form) - Note Progress Note: PULMONARY Somnolent but arousable. Not verbal. Last Vital Signs Temp Pulse Resp BP Pulse Ox 97.2 F L 72 20 119/53 94 L 10/15/17 09:00 10/15/17 09:00 10/15/17 09:00 10/15/17 09:00 10/15/17 09:00 Gen: mildly tachypneic at rest Heart: RRR Lung: bilateral rhonchi Abd: soft, nontender Ext: no edema CBC, BMP 10/14/17 15:30 10/15/17 06:00 Active Medications Acetaminophen (Ofirmev Injection -) 1,000 mg IVPB Q6H PRN PRN Reason: FEVER OR PAIN Last Admin: 10/14/17 21:33 Dose: 1,000 mg Collagenase (Santyl -) 1 applic TP DAILY [facility] Last Admin: 10/15/17 09:29 Dose: 1 applic Heparin Sodium (Porcine) (Heparin -) 5,000 unit SQ BID [facility] Last Admin: 10/15/17 09:29 Dose: 5,000 unit Amino Acids (Clinimix -) 1,000 mls @ 42 mls/hr IV Q24H [facility] Last Admin: 10/14/17 12:15 Dose: 42 mls/hr Nystatin (Nystop Powder -) 1 applic TP DAILY [facility] Last Admin: 10/15/17 09:29 Dose: 1 applic A/P Acute Hypercapneic Respiratory Failure improving UTI Infected Sacral Decubitus Ulcer Sepsis Lactic Acidosis Acute Kidney Injury improving Dementia - wound care - monitor urine output, creatinine - O2 to keep Spo2 >90% - aspiration precautions - DVT prophylaxis - continue discussions regarding goals of care - can be discharged to SNF from pulmonary standpoint, pt DNR/DNI
[2017-10-15] MEDS ORDERED: ACETAMINOPHEN 650 MG SUPP.RECT PR PRN (11:26)
--- NOTE | 2017-10-15 11:35 | PN ---
Progress Note (short form) - Note Progress Note: Patient seen and examined. Awake, non verbal Continues with 75 % of her PO meal intake throughout the day. Low grade temp last night. On NC 4L/min during daytime with O2 sats 93-94%. BiPaP nighttime. Discussed in detai with her son, Aracelis over the phone about her condition. - Current Medication List Current Medications: Active Medications Acetaminophen (Ofirmev Injection -) 1,000 mg IVPB Q6H PRN PRN Reason: FEVER OR PAIN Last Admin: 10/11/17 18:56 Dose: 1,000 mg Collagenase (Santyl -) 1 applic TP DAILY [facility] Last Admin: 10/13/17 09:20 Dose: 1 applic Heparin Sodium (Porcine) (Heparin -) 5,000 unit SQ BID [facility] Last Admin: 10/13/17 09:17 Dose: 5,000 unit Potassium Chloride 40 meq/ (Amino Acids) 1,020 mls @ 42 mls/hr IVPB Q12H [facility] Last Admin: 10/13/17 09:21 Dose: Not Given Nystatin (Nystop Powder -) 1 applic TP DAILY [facility] Last Admin: 10/13/17 09:20 Dose: 1 applic - Objective Vital Signs: Vital Signs Period Temp Pulse Resp BP Sys/Vega Pulse Ox Last 24 Hr 97.2 F-100 F 68-86 20-20 103-127/53-86 94-95 Constitutional: Yes: No Distress Neck: Yes: Supple, Trachea Midline Cardiovascular: Yes: Regular Rate and Rhythm, S1, S2. No: Murmur Respiratory: Yes: Regular, CTA Bilaterally. No: Rales, Wheezes Gastrointestinal: Yes: Normal Bowel Sounds, Soft. No: Distention, Tenderness Musculoskeletal: Yes: Other (contracted lower extremities) Edema: No Neurological: Yes: Alert, Other (nonverbal) Labs: CBC, BMP 10/14/17 15:30 10/15/17 06:00 Assessment/Plan Current Active Problems Aspiration pneumonia (Acute) DVT prophylaxis (Acute) Dementia (Acute) Elevated troponin I level (Acute) Hypernatremia (Acute) Hypokalemia (Acute) Infected pressure ulcer (Acute) Pneumonia (Acute) Respiratory failure (Acute) Sepsis (Acute) UTI (urinary tract infection) (Acute) - Improved appetite. Continue to encourage PO intake. - Continue NC daytime and Bipap nighttime. - Observing for further fevers off abx (will need to be re-cultured if spikes/ temp > 101) - Discussed in detail about her condition and goals of care with her son, Aracelis. He is ok with her going back to [facility]. But if she stops eating or her PO intake goes down, he and the family leaning towards PEG placement at this point of time. - She will continue with NC 4/min daytime and Bipap during nighttime at [facility]. Hoping her respiratory status continues to improve. - Will have palliative care consult at [facility]. - She will be transferred back to [facility] today.
--- NOTE | 2017-10-15 11:40 | DS ---
Physical Examination Vital Signs: Vital Signs Temperature 97.2 F L 10/15/17 09:00 Pulse Rate 72 10/15/17 09:00 Respiratory Rate 20 10/15/17 09:00 Blood Pressure 119/53 10/15/17 09:00 O2 Sat by Pulse Oximetry (%) 94 L 10/15/17 09:00 Labs: CBC, BMP 10/14/17 15:30 10/15/17 06:00 Discharge Summary Reason For Visit: DEMENTIA/SEPSIS/PNEUMONIA Current Active Problems Aspiration pneumonia (Acute) DVT prophylaxis (Acute) Dementia (Acute) Elevated troponin I level (Acute) Hypernatremia (Acute) Hypokalemia (Acute) Infected pressure ulcer (Acute) Pneumonia (Acute) Respiratory failure (Acute) Sepsis (Acute) UTI (urinary tract infection) (Acute) UTI (urinary tract infection) (Acute) Hospital Course: Acute Hypercapneic Respiratory Failure improving UTI Pneumonia Infected Sacral Decubitus Ulcer Sepsis Lactic Acidosis Acute Kidney Injury improving Dementia Improved PO intake. Continue to encourage PO intake. Continue NC 4L/min daytime and Bipap night time. Continue to engage family regarding goals of care. Palliative care consult with Dr. Montero at [facility]. Condition: Guarded - Instructions Referrals: Talon Alvarado [Primary Care Provider] - [facility] - Home Medications Comprehensive Discharge Medication List: Ambulatory Orders Acetaminophen 325 mg PO DAILY 10/01/17 Aspirin [ASA -] 81 mg PO DAILY 10/01/17 Vitamin B Comp W-C [Nephro-Milly -] 1 tablet PO DAILY 10/01/17 Vitamin B Comp W-C [Nephro-Milly -] 1 tablet PO DAILY 10/01/17
--- NOTE | 2017-10-15 15:46 | PN ---
Progress Note, [employer] - Note Progress Note: Selected Entries 10/14/17 10/14/17 10/14/17 01:20 05:55 09:00 Breakfast Lunch Supper Temperature 98.5 F 99.2 F 98.1 F 10/14/17 10/14/17 10/14/17 09:39 14:18 17:24 Breakfast 75% Lunch 75% Supper Temperature 99.3 F 98.7 F 10/14/17 10/14/17 10/15/17 18:51 21:00 01:00 Breakfast Lunch Supper 50% Temperature 100 F H 98.9 F 10/15/17 10/15/17 10/15/17 06:00 09:00 09:35 Breakfast 75% Lunch Supper Temperature 98 F 97.2 F L 10/15/17 14:51 Breakfast Lunch 75% Supper Temperature 98.9 F Laboratory Tests 10/13/17 10/14/17 06:20 06:05 WBC 14.8 H 13.7 H Pt reported to be tolerating diet quite well, with good appetite. Swallowing recommendations reviewed. Staff aware with excellent carryover.
--- NOTE | 2017-10-15 16:30 | PN ---
Progress Note (short form) - Note Progress Note: Renal follow up for Hypernatremia Pt seen and examined at the bedside no acute events tolerated oral diet IVF stopped for discharge Vital Signs Temperature 98.9 F 10/15/17 14:51 Pulse Rate 92 H 10/15/17 14:51 Respiratory Rate 20 10/15/17 14:51 Blood Pressure 119/53 10/15/17 09:00 O2 Sat by Pulse Oximetry (%) 94 L 10/15/17 09:00 Intake & Output 10/12/17 10/13/17 10/14/17 10/15/17 23:59 23:59 23:59 23:59 Intake Total 890 1008 1308 6 Balance 890 1008 1308 6 NAD awake RRR + rhochi at lung bases soft NT/ND Abd No LE edema CBC, BMP 10/14/17 15:30 10/15/17 06:00 Current Medications Acetaminophen (Tylenol Suppository -) 650 mg CA Q6H PRN PRN Reason: FEVER OR PAIN Collagenase (Santyl -) 1 applic TP DAILY [facility] Last Admin: 10/15/17 09:29 Dose: 1 applic Heparin Sodium (Porcine) (Heparin -) 5,000 unit SQ BID [facility] Last Admin: 10/15/17 09:29 Dose: 5,000 unit Nystatin (Nystop Powder -) 1 applic TP DAILY [facility] Last Admin: 10/15/17 09:29 Dose: 1 applic 86 year old woman with Dementia who is non-verbal and resident at [place], Hx of aspiration PNA who presented with SOB/Increased RR and found to have UTI and infected sacral decubitis ulcers with LEA and hypernatremia. #Hypernatremia/Dehydration improved with IVF now off fluids and on oral feeds continue oral hydration as tolerated would consider repeat BMP in 2-3 day to ensure all electrolytes are WNL no need for IVF at this time Thank you for allowing us to take part in the care of this patient David Ellis DO
[2017-10-16] MEDS ORDERED: PT OWN MED DRAWER 7, Y5N ONE (07:08)
--- NOTE | 2017-10-16 08:56 | PN ---
Progress Note (short form) - Note Progress Note: Much more awake and alert. Having breakfast. No choking, coughing noticed. Afebrile. Not in respiratory distress. - Current Medication List Current Medications: Active Medications Acetaminophen (Ofirmev Injection -) 1,000 mg IVPB Q6H PRN PRN Reason: FEVER OR PAIN Last Admin: 10/11/17 18:56 Dose: 1,000 mg Collagenase (Santyl -) 1 applic TP DAILY [facility] Last Admin: 10/13/17 09:20 Dose: 1 applic Heparin Sodium (Porcine) (Heparin -) 5,000 unit SQ BID [facility] Last Admin: 10/13/17 09:17 Dose: 5,000 unit Potassium Chloride 40 meq/ (Amino Acids) 1,020 mls @ 42 mls/hr IVPB Q12H [facility] Last Admin: 10/13/17 09:21 Dose: Not Given Nystatin (Nystop Powder -) 1 applic TP DAILY [facility] Last Admin: 10/13/17 09:20 Dose: 1 applic - Objective Vital Signs: Vital Signs Period Temp Pulse Resp BP Sys/Vega Pulse Ox Last 24 Hr 97.2 F-100.2 F 72-97 20-20 103-143/52-63 94-96 Constitutional: Yes: No Distress Neck: Yes: Supple, Trachea Midline Cardiovascular: Yes: Regular Rate and Rhythm, S1, S2. No: Murmur Respiratory: Yes: Regular, CTA Bilaterally. No: Rales, Wheezes Gastrointestinal: Yes: Normal Bowel Sounds, Soft. No: Distention, Tenderness Musculoskeletal: Yes: Other (contracted lower extremities) Edema: No Neurological: Yes: Alert, Other (nonverbal) Labs: CBC, BMP 10/14/17 15:30 10/15/17 06:00 Assessment/Plan Current Active Problems Aspiration pneumonia (Acute) DVT prophylaxis (Acute) Dementia (Acute) Elevated troponin I level (Acute) Hypernatremia (Acute) Hypokalemia (Acute) Infected pressure ulcer (Acute) Pneumonia (Acute) Respiratory failure (Acute) Sepsis (Acute) UTI (urinary tract infection) (Acute) - Improved appetite. Continue to encourage PO intake. - Continue NC daytime and Bipap nighttime. - Observing for further fevers off abx (will need to be re-cultured if spikes/ temp > 101) - Discussed in detail about her condition and goals of care with her son, Aracelis. He is ok with her going back to [place]. But if she stops eating or her PO intake goes down, he and the family leaning towards PEG placement at this point of time. - She will continue with NC 4/min daytime and Bipap during nighttime at [place]. Hoping her respiratory status continues to improve. - Will have palliative care consult at [facility]. - She will be transferred back to [facility] today.
[2017-10-16] MEDS: NYSTATIN POWDER 100,000 UNITS/GM - 15 GM TOPICAL POWDER TP SCH (09:43)
[2017-10-16] MEDS: HEPARIN NA (PORCINE) 5,000 UNITS/ML 1ML VIAL SQ SCH (09:43)
[2017-10-16] MEDS: COLLAGENASE CLOSTRIDIUM HIST. 30 GRAMS TUBE TP SCH (09:43)
--- NOTE | 2017-10-16 11:01 | PN ---
Progress Note, Physician History of Present Illness: HPI: Briefly Ms Cardoza is an 86 year old woman with pmhx of dementia, aspiration pna, decubitus ulcer who presented to ED today via EMS for < 24Hr hrs of shortness of breath. She is a resident of [facility] and came in with her son. She in unable to provide hx. She is frail appearing and apparently has been in declining health. EMS felt she was in heart failure and she received 2 SL nitro prior to arrival in ED. In ED pt was febrile to 100, tachy w/HR 125, dyspneic with RR in high 20s, BP 76/56. She had significant wob and acute hypercapneic resp failure (7.25/54), started on Bilevel NIV. Labs otherwise notable for wbc 30K 10% bandemia, lactate 8, Cr 1.4 unk baseline. UA w / pyuria WBC 600+, +LE/N. CXR revealed perihilar congestion and possible RLL infiltrate vs atelectesis. EKG with some lateral ST changes, trop was 0.09, BNP 1200. She was started on Vancomycin, LVQ and Pip/Geovany for UTI and HAP, was given some gentle fluid resuscitation. Repeat abg pending. - Objective Vital Signs: Vital Signs Temperature 98.2 F 10/16/17 06:57 Pulse Rate 75 10/16/17 06:57 Respiratory Rate 20 10/16/17 06:57 Blood Pressure 103/63 10/16/17 06:57 O2 Sat by Pulse Oximetry (%) 96 10/16/17 04:14 Eyes: Yes: WNL, Conjunctiva Clear, EOM Intact HENT: Yes: WNL, Atraumatic, Normocephalic Neck: Yes: WNL, Supple, Trachea Midline Cardiovascular: Yes: WNL, Regular Rate and Rhythm Respiratory: Yes: WNL, Regular, CTA Bilaterally Gastrointestinal: Yes: WNL, Normal Bowel Sounds Genitourinary: Yes: WNL Musculoskeletal: Yes: WNL Extremities: Yes: WNL Edema: No Integumentary: Yes: WNL Neurological: Yes: WNL, Alert, Oriented ...Motor Strength: WNL Psychiatric: Yes: WNL Labs: CBC, BMP 10/14/17 15:30 10/15/17 06:00 INR, PTT INR 1.05 (0.82-1.09) 10/01/17 19:30 Problem List - Problems (1) DVT prophylaxis Code(s): [id number] - (2) Dementia Code(s): F03.90 - UNSPECIFIED DEMENTIA WITHOUT BEHAVIORAL DISTURBANCE Qualifiers: Dementia type: Alzheimer's disease Alzheimer's disease onset: unspecified onset Dementia behavioral disturbance: without behavioral disturbance Qualified Code(s): G30.9 - Alzheimer's disease, unspecified; F02.80 - Dementia in other diseases classified elsewhere without behavioral disturbance; F02.80 - Dementia in other diseases classified elsewhere without behavioral disturbance; F02.80 - Dementia in other diseases classified elsewhere without behavioral disturbance (3) Elevated troponin I level Code(s): R74.8 - ABNORMAL LEVELS OF OTHER SERUM ENZYMES (4) Infected pressure ulcer Code(s): L89.90 - PRESSURE ULCER OF UNSPECIFIED SITE, UNSPECIFIED STAGE; L08.9 - LOCAL INFECTION OF THE SKIN AND SUBCUTANEOUS TISSUE, UNSP (5) Pneumonia Code(s): J18.9 - PNEUMONIA, UNSPECIFIED ORGANISM Qualifiers: Pneumonia type: due to unspecified organism Laterality: left Lung location: lower lobe of lung Qualified Code(s): J18.1 - Lobar pneumonia, unspecified organism (6) Sepsis Code(s): A41.9 - SEPSIS, UNSPECIFIED ORGANISM Qualifiers: Sepsis type: sepsis due to unspecified organism Qualified Code(s): A41.9 - Sepsis, unspecified organism (7) UTI (urinary tract infection) Code(s): N39.0 - URINARY TRACT INFECTION, SITE NOT SPECIFIED Qualifiers: Urinary tract infection type: acute cystitis Hematuria presence: without hematuria Qualified Code(s): N30.00 - Acute cystitis without hematuria Assessment/Plan imp; Acute Hypercapneic Respiratory Failure UTI Infected Sacral Decubitus Ulcer Sepsis Lactic Acidosis Acute Kidney Injury Dementia elevated bnp and tni's - most likely due to sepsis Plan abx cont supportive rx will f/u
[2017-10-16 16:00] VITALS: BP 110/50; PULSE 66; TEMP 98
== END 2017-10-16 10:13 | DRG 871 ==
LOC: JER 19:14 → JERBED 22:41 → UNDOADMIN 23:23 → JERBED 23:23 → JICU 10-02 00:20 → J4W 10-03 20:48 → J7W 10-04 14:00
PROVIDERS: ADMIT Internal Medicine; ATTEND Internal Medicine Geriatric Medicine
PROC: 5A09557 Assistance with Respiratory Ventilation, Greater than 96 Consecutive Hours, Continuous Positive Airway Pressure (ICD-10-PCS; principal; 2017-10-01)
DX: A41.9 Sepsis, unspecified organism (principal); J96.02 Acute respiratory failure with hypercapnia; J96.01 Acute respiratory failure with hypoxia; L89.154 Pressure ulcer of sacral region, stage 4; J69.0 Pneumonitis due to inhalation of food and vomit; N39.0 Urinary tract infection, site not specified; E87.2 Acidosis; N17.9 Acute kidney failure, unspecified; E87.0 Hyperosmolality and hypernatremia; R65.20 Severe sepsis without septic shock; R74.8 Abnormal levels of other serum enzymes; F03.90 Unspecified dementia, unspecified severity, without behavioral disturbance, psychotic disturbance, mood disturbance, and anxiety; E87.6 Hypokalemia; E86.0 Dehydration; E83.39 Other disorders of phosphorus metabolism; E83.42 Hypomagnesemia; E87.5 Hyperkalemia; D72.829 Elevated white blood cell count, unspecified; R13.10 Dysphagia, unspecified; I50.9 Heart failure, unspecified
CPT/HCPCS: 36415; 36600; 71010-TC; 74230-TC; 80048; 80053; 81003; 81015; 82550; 82553; 82803; 83605; 83735; 83880; 84100; 84484; 85025; 85610; 85730; 86850; 86900; 86901; 87040; 87086; 87633; 87804; 87899; 90670; 92611-GN; 93005; 93010; 93306-TC; 94640; 94660; 99285-25; G0480; J1644